=== PATIENT | male | born 1935 | race Caucasian/White ===

== ENCOUNTER 2024-02-28 13:31 | Inpatient (IN) ==
[2024-02-28 14:03] LABS: Basophils # (auto) 0.04 K/uL (0.00-0.20); Basophils % (auto) 0.3 %; Eosinophils # (auto) 0.25 K/uL (0.00-0.50); Eosinophils % (auto) 2.1 %; Hematocrit (blood only) 28.5 % (42.0-52.0); Hemoglobin 8.6 g/dl (14.0-18.0); Immature Granulocytes # (auto) 0.08 K/uL (0.01-0.20); Immature Granulocytes % (auto) 0.7 %; Lymphocytes # (auto) 2.46 K/uL (1.20-3.40); Lymphocytes % (auto) 21.1 %; Mean Corpuscular Hemoglobin 28.8 pg (25.0-34.0); Mean Corpuscular Hgb Conc 30.2 g/dL (32.0-36.0); Mean Corpuscular Volume 95.3 fL (80.0-100.0); Mean Platelet Volume 9.3 fL (9.4-12.4); Neutrophils # (auto) 8.11 K/uL (1.40-6.50); Neutrophils % (auto) 69.8 %; Platelet Count 521 K/uL (130-400); RDW Coefficient of Variation 15.7 % (11.5-14.5); RDW Standard Deviation 54.2 fL (36.4-46.3); Red Blood Count 2.99 M/uL (4.70-6.10); White Blood Count 11.64 K/ul (4.8-10.8)
--- NOTE | 2024-02-28 14:04 | Emergency Department Note ---
History of Present Illness General Chief complaint: Abnormal Labs/Diagnostic Testing Time Seen by Provider: 02/28/24 13:53 Source: patient, family (Son did show up at the bedside and discussed care with him), RN notes reviewed, old records reviewed (I redid review notes that were sent from [facility]) and other (I did talk to Dr. Moreno who called ahead and he is taking care of the patient at [facility] at present) Mode of arrival: EMS Limitations: altered mental status History of Present Illness This patient 88-year-old male who was sent over from [facility] after having confusion and delirium as well as a sodium of 152 yesterday. He fell on January 27 and suffered hip fracture. He went to [place] and had surgery done there. According Dr. Moreno he has not done well postop and was having delirium. He apparently was delirious after his surgery at [place] and has underlying dementia with a comp [facility] and they sent him to [facility] because he could not participate with rehab because he had delirium he has been [facility] since the and has been barely arousable confused since then the family has been upset and her trying to take him to [facility] tomorrow however [facility] refused to excepted due to his ongoing issues including with sodium [address] Moreno sent him to the ER for hydration and evaluation. I did ask about CODE STATUS and he says the patient is a DNR. He did test positive for COVID on February 08. Home Medications Medication Instructions Recorded Confirmed Type memantine 5 mg tablet 5 mg PO BID 01/30/23 02/28/24 History lancets (Microlet Lancet) #300 ea 04/03/23 01/28/24 Rx blood sugar diagnostic (OneTouch #300 ea 04/05/23 01/28/24 Rx Verio test strips) blood-glucose meter (OneTouch #1 ea 04/05/23 01/28/24 Rx Verio Flex Meter) rosuvastatin 20 mg tablet 20 mg PO HS 11/20/23 02/28/24 History levothyroxine 50 mcg tablet 50 mcg PO DAILY 01/28/24 02/28/24 History acetaminophen 325 mg tablet 650 mg PO Q6H PRN PAIN/FEVER>100 02/28/24 02/28/24 History (Tylenol) cholecalciferol (vitamin D3) 50 50 mcg PO DAILY 02/28/24 02/28/24 History mcg (2,000 unit) capsule (Vitamin D3) enoxaparin 40 mg/0.4 mL 40 mg subcut DAILY 02/28/24 02/28/24 History subcutaneous syringe (Lovenox) haloperidol lactate 5 mg/mL 2.5 mg IM Q6H PRN BPSD 02/28/24 02/28/24 History injection solution melatonin 5 mg tablet 5 mg PO HS 02/28/24 02/28/24 History metformin 1,000 mg 24 hr 1,000 mg PO DAILY 02/28/24 02/28/24 History tablet,extended release (gastric reten.) quetiapine 25 mg tablet (Seroquel) 25 mg PO HS 02/28/24 02/28/24 History Allergies Allergy/AdvReac Type Severity Reaction Status Date / Time bee venom protein (honey bee) Allergy Severe SWELLING Verified 02/28/24 16:03 OF NECK, DIFFICULTY BREATHING WITH MULTIPLE STINGS. 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 Medical History Pneumonia hx ~1970's Diabetes mellitus, type 2 NIDDM Surgical History History of cataract surgery right History of colonoscopy History of tonsillectomy History of carpal tunnel surgery of right wrist ulnar nerve transposition History of total right hip arthroplasty Hx of eye surgery right eye (2/2 central retinal vein occlusion) Family History Father Alzheimer disease Mother Lung cancer Grandfather (Maternal) Lung cancer Other No family history of adverse response to anesthesia Social History Smoking Status: Unknown if ever smoked Tobacco Type: Cigarettes and Cigars Second Hand Exposure: No; Do You Dip or Chew Tobacco: No; Hx Alcohol Use: Yes Alcohol type: wine Hx Substance Use: No Preferred Language: [place] Communication Ability: Effective Mill [employer] Required: No Beliefs That Will Affect Care: None Current Living Situation: Spouse Feels Safe at Home: Yes Assistive Devices: Glasses and Hearing Aid - Bilateral Review of Systems A total of 10 systems reviewed and were otherwise negative Physical Exam Vital Signs Vital Signs - 24 hr 02/28/24 13:45 02/28/24 13:48 02/28/24 14:00 Temperature 36.9 C Temperature Source Oral Pulse Rate 89 90 Pulse Rate [Apical] 89 Pulse Rate from SpO2 Sensor 84 92 H Respiratory Rate 22 19 21 Blood Pressure Blood Pressure [Right Arm] 114/65 Blood Pressure Mean Blood Pressure Mean [Right Arm] 81 Pulse Oximetry 100 99 92 Oxygen Delivery Method Room Air Sepsis Recent Fever Within 48 Hours Sepsis New/Unexplained Change in Mental Status Sepsis Action Taken by Nursing 02/28/24 14:01 02/28/24 14:03 02/28/24 14:15 Temperature 36.9 C Temperature Source Axillary Pulse Rate 87 89 Pulse Rate [Apical] Pulse Rate from SpO2 Sensor 86 Respiratory Rate 23 19 Blood Pressure 112/56 L 114/65 Blood Pressure [Right Arm] Blood Pressure Mean 69 81 Blood Pressure Mean [Right Arm] Pulse Oximetry 98 99 Oxygen Delivery Method Room Air Sepsis Recent Fever Within 48 Hours No Sepsis New/Unexplained Change in Mental Status N/A Sepsis Action Taken by Nursing No Action Required 02/28/24 14:17 02/28/24 14:23 02/28/24 14:30 Temperature Temperature Source Pulse Rate 82 89 Pulse Rate [Apical] Pulse Rate from SpO2 Sensor 89 Respiratory Rate 19 Blood Pressure 116/58 L Blood Pressure [Right Arm] Blood Pressure Mean 70 Blood Pressure Mean [Right Arm] Pulse Oximetry 94 Oxygen Delivery Method Sepsis Recent Fever Within 48 Hours Sepsis New/Unexplained Change in Mental Status Sepsis Action Taken by Nursing 02/28/24 14:31 02/28/24 14:34 Temperature Temperature Source Pulse Rate 92 H 102 H Pulse Rate [Apical] Pulse Rate from SpO2 Sensor Respiratory Rate 20 23 Blood Pressure 118/59 L Blood Pressure [Right Arm] Blood Pressure Mean 78 Blood Pressure Mean [Right Arm] Pulse Oximetry 97 95 Oxygen Delivery Method Room Air Sepsis Recent Fever Within 48 Hours Sepsis New/Unexplained Change in Mental Status Sepsis Action Taken by Nursing General: Well developed well nourished older male who is eyes are open and he is difficult to understand but does respond when talked to. In no acute distress, breathing comfortably on room air. Nonslurred but somewhat thickened HEENT: Normal cephalic atraumatic. Pupils are equal round and reactive to light. Extraocular movements are intact. Oropharynx is pink with moist mucous membranes. No swelling of the mouth lips or tongue. Neck: Supple with a midline trachea. No meningeal signs or stiffness, no JVD or bruits. No Stridor. Chest: Clear to auscultation bilaterally. No wheezes or rhonchi. No increased work of breathing. Heart: Regular rate and rhythm without murmurs or gallops. Abdomen: Soft nontender, nondistended without rebound guarding or rigidity. Extremities: No cyanosis clubbing or edema. No calf tenderness or assymetry Spine/Back. Non tender to palpation. No CVA tenderness Skin: Good turgor without rashes. Neurologic exam: Cranial nerves two through 12 are intact. Motor and sensation are intact and symmetrical throughout. Course Administered Medications Potassium Chloride/Dextrose/Sod Cl (D5w And 1/2nss + 20meq Kcl) 20 meq in 1,000 mls @ 100 mls/hr IV .Q10H SONAM Stop: 03/29/24 14:59 Last Admin: 02/28/24 16:29 Dose: 100 mls/hr Documented By: JOHNNA Discontinued Medications Sodium Chloride (Nss) 1,000 mls @ 999 mls/hr IV .Q1H1M ONE Stop: 02/28/24 14:53 Last Infusion: 02/28/24 16:28 Dose: Infused Documented By: Admin: 02/28/24 14:54 Dose: 999 mls/hr Documented By: JOHNNA Ceftriaxone Sodium (Rocephin) 2,000 mg in 50 mls @ 100 mls/hr IV NOW STA; Protocol Stop: 02/28/24 15:17 Last Infusion: 02/28/24 15:58 Dose: Infused Documented By: Admin: 02/28/24 15:21 Dose: 100 mls/hr Documented By: COURTNEY Doxycycline Hyclate 100 mg/ (Dextrose) 100 mls @ 50 mls/hr IV NOW STA Stop: 02/28/24 16:47 Last Infusion: 02/28/24 15:58 Dose: Infused Documented By: Admin: 02/28/24 15:22 Dose: 50 mls/hr Documented By: COURTNEY Critical Care Time Critical Care Time: Yes Total Critical Care Time: 30 Due to the patient's significant lab abnormalities, concern for dehydration and sepsis, need for IV fluids IV antibiotics and further treatment and evaluation as well as discussion with the primary doctor a on hospital stay and family, I have personally spent greater than 30 minutes of critical care time in the direct management of this patient. This includes bedside care, interpretation of diagnostic studies, and testing, discussion with consultants, patient, and family members, and other required patient management activities. This 30 minutes is in excess of all separately billable procedures. Medical Decision Making Differential Diagnosis Electrolyte or metabolic abnormality, dehydration, delirium, intracranial process, medication side effect, infection Medical Records Attestation: I reviewed the patient's medical records. Home Medications Current Medication List: was personally reviewed by me Laboratory Data Attestation: I reviewed the patient's lab results. 02/28/24 13:47 02/28/24 13:47 Lab Results 02/28/24 Range/Units 13:47 WBC 11.64 H (4.8-10.8) K/ul RBC 2.99 L (4.70-6.10) M/uL Hgb 8.6 L (14.0-18.0) g/dl Hct 28.5 L (42.0-52.0) % MCV 95.3 (80.0-100.0) fL MCH 28.8 (25.0-34.0) pg MCHC 30.2 L (32.0-36.0) g/dL RDW Std Deviation 54.2 H (36.4-46.3) fL RDW Coeff of Baldo 15.7 H (11.5-14.5) % Plt Count 521 H (130-400) K/uL MPV 9.3 L (9.4-12.4) fL Immature Gran % (Auto) 0.7 % Neut % (Auto) 69.8 % Lymph % (Auto) 21.1 % [place] % (Auto) 6.0 % Eos % (Auto) 2.1 % Baso % (Auto) 0.3 % Neut # (Auto) 8.11 H (1.40-6.50) K/uL Lymph # (Auto) 2.46 (1.20-3.40) K/uL [place] # (Auto) 0.70 H (0.11-0.59) K/uL Eos # (Auto) 0.25 (0.00-0.50) K/uL Baso # (Auto) 0.04 (0.00-0.20) K/uL Immature Gran # (Auto) 0.08 (0.01-0.20) K/uL PT 11.9 (9.0-12.0) Seconds INR 1.1 (0.9-1.1) APTT 27 (21-31) Seconds PTT Ratio 1.0 Sodium 152 H (136-145) mmol/L Potassium 3.2 L (3.5-5.1) mmol/L Chloride 115 H (98-107) mmol/L Carbon Dioxide 26 (21-32) mmol/L Anion Gap 11 (3-11) BUN 24 H (6-23) mg/dl Creatinine 0.74 (0.6-1.4) mg/dl Est Cr Clr Drug Dosing Not Reportable Est GFR ( Amer) 96.8 ml/min Est GFR (Non-Af Amer) 83.5 ml/min BUN/Creatinine Ratio 32.4 H (10-20) Glucose 155 H (70-99(Fasting)) mg/dl Lactate 2.9 H* (0.4-2.0) mmol/L Calcium 8.3 L (8.6-10.3) mg/dl Total Bilirubin 0.5 (0.2-1.0) mg/dl AST 20 (13-39) U/L ALT 14 (7-52) U/L Alkaline Phosphatase 120 H (34-104) U/L Total Creatine Kinase 70 (30-223) U/L Troponin I High Sens 55.7 H* (0-20) pg/ml Total Protein 6.6 (6.0-8.3) gm/dl Albumin 3.0 L (3.4-5.0) gm/dl Globulin 3.6 (2.5-4.0) gm/dl Albumin/Globulin Ratio 0.8 L (0.9-2) Lipase 12 (11-82) U/L Imaging Data Attestation: I personally reviewed and interpreted this imaging study as follows: My Impression: Chest x-raypatchy infiltrates bilaterally Radiologist's Impression: Chest X-Ray 02/28/24 13:53 XR chest 1V portable HISTORY: 88 years-old Male Chest pain, nonspecific COMPARISON: 01/28/2024 TECHNIQUE: AP view the chest FINDINGS: Cardiac silhouette is enlarged. Pulmonary vascular congestion. No pneumothorax or pleural effusion. Mild patchy bilateral airspace opacities. Healed chronic appearing left-sided rib fractures. IMPRESSION: There are new patchy mild bibasilar airspace opacities suspicious for multifocal pneumonia. ACT 112: Negative or not required by law. The above report was generated using voice recognition software. It may contain grammatical, syntax or spelling errors. Electronically signed by: Vinod Wooten M.D. 02/28/2024 2:[address] 02/28/24 13:[address] DOSE: 953.61 mGy.cm HISTORY: Altered mental status. TECHNIQUE: Multiaxial CT images of the head were performed without the use of intravenous contrast. Automated exposure control was utilized for this study. A dose lowering technique was utilized adhering to the principles of ALARA. Comparison: Head CT 01/28/2024. Findings: Small fluid levels within the sphenoid sinuses. There is a small retention cyst within the left maxillary sinus. The mastoid air cells are clear. The calvarium and skull base are intact. There is no mass, hematoma, midline shift, acute infarct. White matter hypodensity is nonspecific but suggestive of microvascular ischemic change. The ventricles and sulci demonstrate mild age- related involutional changes. Impression: 1. No acute infarct or intracranial hemorrhage. 2. Acute sphenoid sinusitis. ACT 112: Negative or not required by law. Electronically signed by: Bijan Murillo M.D. 02/28/2024 2:23 PM ECG Data Attestation: I personally reviewed and interpreted this ECG as follows: Indication: + toxicologic and + weakness Rate (beats per minute): 92 Rhythm: + normal sinus and + other (Baseline/artifact) ECG Intervals/blocks: + Normal QRS, + Normal QT and + Normal [place] ECG [place]: + Normal ECG ST segments: + Normal ST segments ECG Findings: no PACs or no PVCs Comparison ECG Date: from (01/28/2024) Change: no significant change MDM Narrative This patient comes in as scribed above he was placed on a playground monitor and B11 I saw him shortly after he arrived. He is stable vital signs he actually looks better than he sounded talking to Dr. Moreno he is awake he does try to talk is difficult to understand. He is definitely has delirium and still appears mucous members are somewhat dry. He was hydrated with normal saline bolus EKG was obtained multiple blood testing was obtained I did do a CAT scan of his head as well. He was reassessed frequently. His sodium was high. His white count is mildly elevated his lactic acid was also elevated 2.9. He received fluid resuscitation and 1 lactate was repeated cleared to 1.2. His troponin was 55.7 initially and this also is downward trending at 42.2 when rechecked. His EKG shows no ischemic changes chest x-ray shows what could be a multifocal pneumonia he was given IV antibiotics with IV Rocephin and IV Doxy. I had discussed antibiotic choices with our ED pharmacist. I do think the patient needs to be admitted/observed. I did discuss the case with the on-call [facility] hospitalist Dr. Og, who is at the bedside and will see the patient for admission. Continuous cardiac monitoring: Orders placed in EMR for continuous cardiac monitoring: Upon my evaluation patient noted to be in normal sinus with a rate of 90 Impression & Plan Acute dehydration, Acute metabolic encephalopathy, Acute hypernatremia, Sepsis, Pneumonia, Elevated troponin Discharge Plan Visit Data Chief Complaint: Abnormal Labs/Diagnostic Testing ED Provider: Chele Trammell Discharge Problem: Acute dehydration, Acute metabolic encephalopathy, Acute hypernatremia, Sepsis, Pneumonia, Elevated troponin Patient Disposition: Admitted As Inpatient Discharge Instructions Interventions: ED Discharge Assessment Last Done: 02/28/24 18:34 Discharge Problem: Sepsis Qualifiers: Sepsis type: sepsis due to unspecified organism Sepsis acute organ dysfunction status: unspecified Qualified Code(s): A41.9 - Sepsis, unspecified organism Pneumonia Qualifiers: Pneumonia type: due to unspecified organism Laterality: bilateral Lung location: unspecified part of lung Qualified Code(s): J18.9 - Pneumonia, unspecified organism
[2024-02-28 14:23] LABS: INR 1.1 (0.9-1.1); Partial Thromboplastin Time 27 Seconds (21-31); Prothrombin Time 11.9 Seconds (9.0-12.0)
--- NOTE | 2024-02-28 14:24 | CT Scan Report ---
HEAD CT NONCONTRAST CT DOSE: 953.61 mGy.cm HISTORY: Altered mental status. TECHNIQUE: Multiaxial CT images of the head were performed without the use of intravenous contrast. A utomated exposure control was utilized for this study. A dose lowering technique was utilized adheri ng to the principles of ALARA. Comparison: Head CT 01/28/2024. Findings: Small fluid levels within the sphenoid sinuses. There is a small retention cyst within the left maxillary sinus. The mastoid air cells are clear. The calvarium and skull base are intact. There is no mass, hematoma, midline shift, acute infarct. White matter hypodensity is nonspecific but sugg estive of microvascular ischemic change. The ventricles and sulci demonstrate mild age-related involu tional changes. Impression: 1. No acute infarct or intracranial hemorrhage. 2. Acute sphenoid sinusitis. ACT 112: Negative or not required by law. Electronically signed by: Bijan Murillo M.D. 02/28/2024 2:23 PM
[2024-02-28 14:29] LABS: Alanine Aminotransferase 14 U/L (7-52); Albumin Globulin Ratio 0.8 (0.9-2); Alkaline Phosphatase 120 U/L (34-104); Anion Gap 11 (3-11); Aspartate Aminotransferase 20 U/L (13-39); BUN Creatinine Ratio 32.4 (10-20); Bilirubin,Total 0.5 mg/dl (0.2-1.0); Blood Urea Nitrogen 24 mg/dl (6-23); Calcium 8.3 mg/dl (8.6-10.3); Carbon Dioxide 26 mmol/L (21-32); Chloride 115 mmol/L (98-107); Creatine Kinase 70 U/L (30-223); Est GFR (African American) 96.8 ml/min; Est GFR (Non-African American) 83.5 ml/min; Globulin 3.6 gm/dl (2.5-4.0); Glucose 155 mg/dl (70-99(Fasting)); Lipase 12 U/L (11-82); Potassium 3.2 mmol/L (3.5-5.1); Sodium 152 mmol/L (136-145); Total Protein 6.6 gm/dl (6.0-8.3)
--- NOTE | 2024-02-28 14:35 | XRay Report ---
XR chest 1V portable HISTORY: 88 years-old Male Chest pain, nonspecific COMPARISON: 01/28/2024 TECHNIQUE: AP view the chest FINDINGS: Cardiac silhouette is enlarged. Pulmonary vascular congestion. No pneumothorax or pleural effusion. M ild patchy bilateral airspace opacities. Healed chronic appearing left-sided rib fractures. IMPRESSION: There are new patchy mild bibasilar airspace opacities suspicious for multifocal pneumoni a. ACT 112: Negative or not required by law. The above report was generated using voice recognition software. It may contain grammatical, syntax o r spelling errors. Electronically signed by: Vinod Wooten M.D. 02/28/2024 2:34 PM
[2024-02-28 14:44] LABS: Troponin I High Sensitivity 55.7 pg/ml (0-20)
[2024-02-28] MEDS: SODIUM CHLORIDE 0.9% 1,000 ML IV ONE (14:54)
[2024-02-28] MEDS: cefTRIAXone SODIUM 2,000 MG/50 ML BAG IV STA (15:21)
[2024-02-28] MEDS: DOXYCYCLINE HYCLATE 100 MG in DEXTROSE 5% MINI-B 100 ML IV STA (15:22)
--- NOTE | 2024-02-28 15:59 | History & Physical Report ---
Date of Service February 28, 2024 Assessment & Plan (1) Acute hypernatremia: (2) Acute metabolic encephalopathy: (3) Pneumonia: (4) Elevated troponin: (5) Diabetes mellitus type 2 with complications: (6) Dementia: (7) Hypothyroidism: (8) Lab test positive for detection of COVID-19 virus: Admission and Anticipated Discharge Date Admission Date: This is a 88-year-old male with history of dementia, diabetes mellitus type 2, recent COVID-19 and pneumonia, recent periprosthetic fracture right hip surgical treated at [place], among other medical problems who was sent from [facility] rehab for hypernatremia and ongoing confusion CT head- 1. No acute infarct or intracranial hemorrhage. 2. Acute sphenoid sinusitis. CXR-There are new patchy mild bibasilar airspace opacities suspicious for multifocal pneumonia. (1) Acute hypernatremia: sodium 152. likely from poor oral intake given his dementia and confusion. He looks dry on examination. He was given 1 L of NSS in the ED. he was started on D5 half-normal saline with KCl, however repeat BMP at 7 PM still shows sodium at 152. will switch IV fluids to D5 infusion at 100 cc/h and recheck BMP in the morning. Will continue potassium supplementation for hypokalemia (2) Acute metabolic encephalopathy: CT head with no acute normality except for acute sphenoid sinusitis. likely related to hyponatremia along with his dementia and delirium related to his hospitalizations. continue IVF as above. Continue delirium precautions. (3) Multifocal Pneumonia/ acute sphenoid sinusitis: patient was diagnosed with COVID on 02/08 at [facility] and also received Ceftriaxone for 7 days for pneumonia. chest x-ray here shows multifocal pneumonia, unclear whether this is from his recent pneumonia versus a new one. He was started on ceftriaxone send doxycycline in the ED which we will continue for now - this will also cover the sinusitis. will consult MARKETING TEAM LEAD eval to see if he might be aspirating. Lactic acidosis has resolved. (4) Elevated troponin: Likely Demand ischemia related to above. Denies chest pain. EKG with no acute changes. Will trend troponin for completeness. (5) Diabetes mellitus type 2: On metformin, which will hold and continue Lantus Along with Humalog, as he is on D5W. carb controlled diet. (6) Dementia with postoperative delirium- continue Seroquel, melatonin, mementine, delirium precautions. Haldol prn if agitation. (7) Hypothyroidism: continue Synthroid (8) Lab test positive for detection of COVID-19 virus: recently tested positive for COVID-19 on 02/08 at [facility] and is still positive. No need for isolation. (9) Postop blood loss anemia- hemoglobin currently stable at 8.6. Will monitor. Currently does not require transfusion. (10) Hypokalemia- Repleted. Recheck in AM. (11) GOC discussion- discussed with son at bedside who is also POA along with the sisters. He is quite realistic. States he is DNR/DNI. He would like to continue IVF and antibiotics but he does not think he would want PEG tube or BIPAP or ICU transfer for pressors if it comes to that. DVT prophylaxis- continue subcu Lovenox which patient has been getting at the rehab. DNR/DNI per discussion with son at bedside who is also the POA. Disposition- MedSurg on telemetry Updated son at bedside Time spent- approximately 79 minutes. History of Present Illness Chief Complaint: hypernatremia, confusion Primary Care Provider: Carlin Darden MD This is a 88-year-old male with history of dementia, diabetes mellitus type 2, recent COVID-19 and pneumonia, recent periprosthetic fracture right hip surgical treated at [place], among other medical problems who was sent from [facility] rehab for hypernatremia and ongoing confusion. Patient is confused and Demented and not able to participate in history much. History obtained from chart review and speaking to son at bedside. patient had unwitnessed fall on 01/28/2024 sustaining right hip periprosthetic fracture and was transferred to [facility] where he underwent revision of right hip total arthroplasty and ORIF a femur with revision of femoral stem by Dr. Titus Jimenez on 01/29/2024 at [facility]. X-rays revealed severe right knee DJD as well. Postoperatively, he had significant agitation and delirium anxiolytic medicine was consulted who recommended melatonin at bedtime, Seroquel 25 Mg every 6 PM and avoidance of anticholinergic medications. He was transferred to [facility] on 02/04/2024. details of his stay at [facility] are unclear at this time, however he was diagnosed with COVID-19 on 02/09/2024 after displaying symptoms of increased lethargy and worsening confusion but he did not require any specific antiviral treatment. He was discharged to [facility] for ongoing rehab on 02/16. labs were done which showed significant hyponatremia and he was transferred to the hospital for further management, especially with his ongoing confusion. During my evaluation, son was at bedside. He was afebrile and hemodynamically stable, intermittently coughing. He looked dry. Allergies Allergy/AdvReac Type Severity Reaction Status Date / Time bee venom protein (honey bee) Allergy Severe SWELLING Verified 02/28/24 16:03 OF NECK, DIFFICULTY BREATHING WITH MULTIPLE STINGS. ciprofloxacin Allergy Intermediate rash Verified 02/28/24 16:03 Home Medications Medication Instructions Recorded Confirmed Type memantine 5 mg tablet 5 mg PO BID 01/30/23 02/28/24 History lancets (Microlet Lancet) #300 ea 04/03/23 01/28/24 Rx blood sugar diagnostic (OneTouch #300 ea 04/05/23 01/28/24 Rx Verio test strips) blood-glucose meter (OneTouch #1 ea 04/05/23 01/28/24 Rx Verio Flex Meter) rosuvastatin 20 mg tablet 20 mg PO HS 11/20/23 02/28/24 History levothyroxine 50 mcg tablet 50 mcg PO DAILY 01/28/24 02/28/24 History acetaminophen 325 mg tablet 650 mg PO Q6H PRN PAIN/FEVER>100 02/28/24 02/28/24 History (Tylenol) cholecalciferol (vitamin D3) 50 50 mcg PO DAILY 02/28/24 02/28/24 History mcg (2,000 unit) capsule (Vitamin D3) enoxaparin 40 mg/0.4 mL 40 mg subcut DAILY 02/28/24 02/28/24 History subcutaneous syringe (Lovenox) haloperidol lactate 5 mg/mL 2.5 mg IM Q6H PRN BPSD 02/28/24 02/28/24 History injection solution melatonin 5 mg tablet 5 mg PO HS 02/28/24 02/28/24 History metformin 1,000 mg 24 hr 1,000 mg PO DAILY 02/28/24 02/28/24 History tablet,extended release (gastric reten.) quetiapine 25 mg tablet (Seroquel) 25 mg PO HS 02/28/24 02/28/24 History Past Med/Surg History Problem List Lab test positive for detection of COVID-19 virus Elevated troponin (Acute) Pneumonia (Acute) Sepsis (Acute) Acute hypernatremia (Acute) Acute metabolic encephalopathy (Acute) Acute dehydration (Acute) Murmur 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 Medical History Pneumonia hx ~1970's Diabetes mellitus, type 2 NIDDM Surgical History History of cataract surgery right History of colonoscopy History of tonsillectomy History of carpal tunnel surgery of right wrist ulnar nerve transposition History of total right hip arthroplasty Hx of eye surgery right eye (2/2 central retinal vein occlusion) Family History Father Alzheimer disease Mother Lung cancer Grandfather (Maternal) Lung cancer Other No family history of adverse response to anesthesia Social History Smoking Status: Unknown if ever smoked Tobacco Type: Cigarettes and Cigars Second Hand Exposure: No; Do You Dip or Chew Tobacco: No; Hx Alcohol Use: Yes Alcohol type: wine Hx Substance Use: No Preferred Language: Montserratian Communication Ability: Effective Professor Of Marketing Required: No Beliefs That Will Affect Care: None Current Living Situation: Spouse Feels Safe at Home: Yes Assistive Devices: Glasses and Hearing Aid - Bilateral Review of Systems Review of Systems: Unobtainable due to cognitive status Physical Exam Physical Exam: General: Chronically ill looking elderly male, lying comfortably in bed, not in distress, on room air HEENT: [place], dry oral mucosa Chest: Clear breath sounds bilaterally, no wheezes or crackles CVS: Regular rate and rhythm, normal heart sounds, no murmur Abdomen: Soft, non tender, not distended, normal bowel sounds Neuro: Awake, alert, oriented to self, speaking few sentences, follows some commands Extremities: No edema Psych: Calm, cooperative, confused Results & Data Results & Data Vital Signs (Past 12 Hours) Vital Signs Temp Pulse Pulse Resp BP BP Pulse Ox 02/28/24 15:57 80 17 102/60 100 02/28/24 15:24 113 H 22 121/62 98 02/28/24 14:34 102 H 23 95 02/28/24 14:31 92 H 20 118/59 L 97 02/28/24 14:30 89 19 94 02/28/24 14:23 82 02/28/24 14:17 116/58 L 02/28/24 14:15 36.9 C 89 19 114/65 99 02/28/24 14:03 87 23 98 02/28/24 14:01 112/56 L 02/28/24 14:00 90 21 92 02/28/24 13:48 36.9 C 89 19 114/65 99 02/28/24 13:45 89 22 100 O2 Del Method 02/28/24 15:57 Room Air 02/28/24 15:24 02/28/24 14:34 Room Air 02/28/24 14:31 02/28/24 14:30 02/28/24 14:23 02/28/24 14:17 02/28/24 14:15 Room Air 02/28/24 14:03 02/28/24 14:01 02/28/24 14:00 02/28/24 13:48 Room Air 02/28/24 13:45 Laboratory Results Short CBC 02/28/24 Range/Units 13:47 WBC 11.64 H (4.8-10.8) K/ul Hgb 8.6 L (14.0-18.0) g/dl Hct 28.5 L (42.0-52.0) % Plt Count 521 H (130-400) K/uL BMP 02/28/24 13:47 Sodium 152 H Potassium 3.2 L Chloride 115 H Carbon Dioxide 26 BUN 24 H Creatinine 0.74 Glucose 155 H Calcium 8.3 L Cardiac Enzymes 02/28/24 Range/Units 13:47 Total Creatine Kinase 70 (30-223) U/L Liver Function 02/28/24 Range/Units 13:47 Total Bilirubin 0.5 (0.2-1.0) mg/dl AST 20 (13-39) U/L ALT 14 (7-52) U/L Alkaline Phosphatase 120 H (34-104) U/L Albumin 3.0 L (3.4-5.0) gm/dl Diagnostic Findings Chest X-Ray 02/28/24 13:53 XR chest 1V portable HISTORY: 88 years-old Male Chest pain, nonspecific COMPARISON: 01/28/2024 TECHNIQUE: AP view the chest FINDINGS: Cardiac silhouette is enlarged. Pulmonary vascular congestion. No pneumothorax or pleural effusion. Mild patchy bilateral airspace opacities. Healed chronic appearing left-sided rib fractures. IMPRESSION: There are new patchy mild bibasilar airspace opacities suspicious for multifocal pneumonia. ACT 112: Negative or not required by law. The above report was generated using voice recognition software. It may contain grammatical, syntax or spelling errors. Electronically signed by: Vinod Wooten M.D. 02/28/2024 2:[address] 02/28/24 13:[address] DOSE: 953.61 mGy.cm HISTORY: Altered mental status. TECHNIQUE: Multiaxial CT images of the head were performed without the use of intravenous contrast. Automated exposure control was utilized for this study. A dose lowering technique was utilized adhering to the principles of ALARA. Comparison: Head CT 01/28/2024. Findings: Small fluid levels within the sphenoid sinuses. There is a small retention cyst within the left maxillary sinus. The mastoid air cells are clear. The calvarium and skull base are intact. There is no mass, hematoma, midline shift, acute infarct. White matter hypodensity is nonspecific but suggestive of microvascular ischemic change. The ventricles and sulci demonstrate mild age- related involutional changes. Impression: 1. No acute infarct or intracranial hemorrhage. 2. Acute sphenoid sinusitis. ACT 112: Negative or not required by law. Electronically signed by: Bijan Murillo M.D. 02/28/2024 2:23 PM (3) Pneumonia Laterality: bilateral Lung location: unspecified part of lung Pneumonia type: due to unspecified organism Qualified Code(s): J18.9 - Pneumonia, unspecified organism (7) Hypothyroidism Hypothyroidism type: acquired Qualified Code(s): E03.9 - Hypothyroidism, unspecified
[2024-02-28] MEDS: D5W AND 1/2NSS + 20MEQ KCL 20 MEQ/1,000 ML BAG IV SCH (16:29)
[2024-02-28] MEDS ORDERED: HALOPERIDOL LACTATE 5 MG/ML 1 ML VIAL IV PRN (16:58)
[2024-02-28] MEDS ORDERED: ALBUT/IPRATROP 3MG/0.5MG NEB 3 ML VIAL NEB PRN (18:34)
[2024-02-28] MEDS ORDERED: GLUCAGON FOR INJ 1 MG VIAL SQ PRN (18:34)
[2024-02-28] MEDS ORDERED: GLUCOSE 10 TAB/TUBE PO PRN (18:34)
[2024-02-28] MEDS ORDERED: GLUCOSE 40% GEL 15 GM TUBE PO PRN (18:34)
[2024-02-28] MEDS ORDERED: ONDANSETRON INJ 2 MG/ML 2 ML VIAL IV PRN (18:34)
--- NOTE | 2024-02-28 19:25 | Electrocardiogram Report ---
Test Reason : Blood Pressure : / mmHG Vent. Rate : 092 BPM Atrial Rate : 092 BPM P-R Int : 140 ms QRS Dur : 094 ms QT Int : 356 ms P-R-T Axes : 078 073 -01 degrees QTc Int : 440 ms Poor data quality, interpretation may be adversely affected Sinus rhythm with Premature atrial complexes Nonspecific T wave abnormality Abnormal ECG When compared with ECG of 28-JAN-2024 12:20, Premature atrial complexes are now Present QRS duration has decreased Nonspecific T wave abnormality now evident in Inferior leads Confirmed by Jesse Balderas ([id number]) on 02/28/2024 7:25:03 PM Referred By: REFERRED SELF Confirmed By:Jesse Balderas
[2024-02-28 19:47] LABS: BUN Creatinine Ratio 30.8 (10-20); Calcium 8.1 mg/dl (8.6-10.3); Creatinine Clr Calc Pharmacy 62.2 ml/min; Est GFR (African American) 102.1 ml/min; Est GFR (Non-African American) 88.1 ml/min; Potassium 3.3 mmol/L (3.5-5.1)
[2024-02-28] MEDS: INSULIN ASPART PER UNIT CHARGE SC SCH (21:00)
[2024-02-28] MEDS: DOXYCYCLINE HYCLATE 100 MG in DEXTROSE 5% MINI-B 100 ML IV SCH (21:56)
[2024-02-28] MEDS: ROSUVASTATIN CALCIUM 20 MG TAB PO SCH (22:00)
[2024-02-28] MEDS: MEMANTINE HCL 5 MG TAB PO SCH (22:00)
[2024-02-28] MEDS: QUEtiapine FUMARATE 25 MG TABLET PO SCH (22:00)
[2024-02-28] MEDS: MELATONIN 3 MG TAB PO SCH (22:01)
[2024-02-28] MEDS: LANTUS PER UNIT CHARGE SQ SCH (22:23)
[2024-02-28] MEDS: POTASSIUM CHLORIDE 20 MEQ/15 ML UDC PO STA (22:31)
[2024-02-28] MEDS: DEXTROSE 5% 1,000 ML IV SCH (22:39)
[2024-02-29] MEDS: LEVOTHYROXINE SODIUM 50 MCG TABLET PO SCH (06:26)
[2024-02-29 08:18] LABS: BUN Creatinine Ratio 26.3 (10-20); Calcium 7.5 mg/dl (8.6-10.3); Creatinine Clr Calc Pharmacy 70.9 ml/min; Est GFR (African American) 107.8 ml/min; Magnesium 1.5 mg/dl (1.7-2.4); Phosphorus 2.1 mg/dl (2.5-4.9); Potassium 3.1 mmol/L (3.5-5.1)
[2024-02-29 08:25] LABS: Troponin I High Sensitivity 37.4 pg/ml (0-20)
[2024-02-29 09:09] LABS: Hematocrit (blood only) 21.9 % (42.0-52.0); Hemoglobin 6.6 g/dl (14.0-18.0); Mean Corpuscular Hemoglobin 28.8 pg (25.0-34.0); Mean Corpuscular Hgb Conc 30.1 g/dL (32.0-36.0); Mean Corpuscular Volume 95.6 fL (80.0-100.0); Mean Platelet Volume 9.1 fL (9.4-12.4); Platelet Count 426 K/uL (130-400); RDW Coefficient of Variation 15.4 % (11.5-14.5); RDW Standard Deviation 52.9 fL (36.4-46.3); Red Blood Count 2.29 M/uL (4.70-6.10); White Blood Count 10.21 K/ul (4.8-10.8)
[2024-02-29] MEDS: ENOXAPARIN INJ 40 MG/0.4 ML SYR SQ SCH (09:45)
[2024-02-29] MEDS ORDERED: POTASSIUM PHOS 3 MMOL/1 ML INFUSION IV STA (09:55)
[2024-02-29 10:06] LABS: Hematocrit (blood only) 23.1 % (42.0-52.0)
[2024-02-29] MEDS: MAGNESIUM SULFATE / D5W 1 GM/100 ML BAG IV SCH (11:10)
[2024-02-29] MEDS: D5W AND 1/2NSS + 20MEQ KCL 20 MEQ/1,000 ML BAG IV SCH (11:10)
[2024-02-29 13:00] LABS: Ferritin 449.5 ng/ml (8-388)
[2024-02-29 13:02] LABS: Folate (Folic Acid),Ser orPlas 5.67 ng/ml (>5.38)
--- NOTE | 2024-02-29 14:52 | Hospitalist Progress Note ---
Date of Service February 29, 2024 Assessment & Plan (1) Acute metabolic encephalopathy: Plan: This is a 88-year-old male with history of dementia, diabetes mellitus type 2, recent COVID-19 and pneumonia, recent periprosthetic fracture right hip surgical treated at [place], among other medical problems who was sent from [facility] rehab for hypernatremia and ongoing confusion Acute metabolic encephalopathy: CT head with no acute normality except for acute sphenoid sinusitis. likely related to hyponatremia along with his dementia and delirium related to his hospitalizations. Continue IVF as above. Continue delirium precautions. Management as below Remains medically stable Electrolyte abnormalities Has hyponatremia, hypokalemia, hypomagnesemia and hypophosphatemia Likely secondary to poor oral intake and dehydration Complicated by infection Will supplement intravenously and monitor electrolytes while in the hospital Anemia Postop blood loss anemia-status post ORIF right hip on 01/29/2024 at [facility] hemoglobin currently stable at 8.6. Hemoglobin dropped to 7.0 as of today Will get iron studies and B12 and folate level No evidence of acute blood loss Dropping of hemoglobin is secondary to due to ongoing infection Will monitor hemoglobin and transfuse if it drops below 7 (2) Acute hypernatremia: Plan: Acute hypernatremia: sodium 152. Likely from poor oral intake given his dementia and confusion. He looks dry on examination. He was given 1 L of NSS in the ED. Which was changed to D5 and half-normal saline and likely D5 half-normal saline with potassium supplement Latest potassium is 148 and will monitor (3) Pneumonia: Plan: Multifocal Pneumonia/ acute sphenoid sinusitis: patient was diagnosed with COVID on 02/08 at [facility] and also received Ceftriaxone for 7 days for pneumonia. chest x-ray here shows multifocal pneumonia, unclear whether this is from his recent pneumonia versus a new one. He was started on ceftriaxone send doxycycline in the ED which we will continue for now - this will also cover the sinusitis. Will consult SENIOR SALES CONSULTANT feli to see if he might be aspirating. Lactic acidosis has resolved. No more fever and or chills and remains hemodynamically stable Will continue current antibiotic (4) Elevated troponin: Plan: Secondary to demand ischemia (5) Diabetes mellitus type 2 with complications: (6) Dementia: (7) Hypothyroidism: (8) Lab test positive for detection of COVID-19 virus: Plan :Other significant medical conditions are documented as below Elevated troponin: Likely Demand ischemia related to above. Denies chest pain. EKG with no acute changes. Will trend troponin for completeness. Diabetes mellitus type 2: On metformin, which will hold and continue Lantus Along with Humalog, as he is on D5W. carb controlled diet. Dementia with postoperative delirium- Continue Seroquel, melatonin, mementine, delirium precautions. Haldol prn if agitation. Hypothyroidism: continue Synthroid Lab test positive for detection of COVID-19 virus: recently tested positive for COVID-19 on 02/08 at [facility] and is still positive. No need for isolation. GOC discussion- discussed with son at bedside who is also POA along with the sisters. He is quite realistic. States he is DNR/DNI. He would like to continue IVF and antibiotics but he does not think he would want PEG tube or BIPAP or ICU transfer for pressors if it comes to that. DVT prophylaxis- continue subcu Lovenox which patient has been getting at the rehab. DNR/DNI per discussion with son at bedside who is also the POA. Disposition- MedSurg on telemetry Updated son at bedside Overall prognosis is poor Admission and Anticipated Discharge Date Admission Date: February 28, 2024 Subjective 02/29/2024 The patient was seen and examined in telemetry unit He remains semiresponsive responsive Opening his eyes and saying yes or no, squeezing hands on commands Says that he is minimally better since admission Review of Systems Review of Systems: Unobtainable due to cognitive status Physical Exam Physical Exam: Lying in bed with mild to moderate distress Constitutional: + ill appearing and + thin Eyes: PERRL, conjunctivae normal, anicteric sclerae Closed ENMT: external ear and nose normal, oropharynx normal Neck: trachea midline, no thyromegaly No neck stiffness Respiratory: + respiratory distress (Minimal respirat ory distress) Auscultation: + diminished lung sounds and + crackles (Minimal crackles bilat erally at the bases) Cardiovascular: Rate/Rhythm: regular rate and regular rhythm Heart Sounds: normal S1 and normal S2; no murmur Extremities: no edema Gastrointestinal (Abdomen): Inspection/Auscultation: normal bowel sounds; abdomen not distended Percussion/Palpation: abdomen soft; abdomen nontender Musculoskeletal: No acute arthritis involving any of the joint Neurologic: Alert and awake. Minimally communicative. Extremely weak and lethargic Results & Data Results & Data Vital Signs (Past 12 Hours) Vital Signs Temp Pulse Resp BP Pulse Ox O2 Del Method 02/29/24 12:32 Room Air 02/29/24 11:25 36.6 C 73 20 102/55 L 94 Room Air 02/29/24 07:21 36.7 C 70 18 96/58 L 94 Room Air 02/29/24 02:50 36.5 C 75 16 104/66 93 Room Air Laboratory Results Short CBC 02/29/24 02/29/24 Range/Units 07:32 09:56 WBC 10.21 (4.8-10.8) K/ul Hgb 6.6 L* 7.0 L (14.0-18.0) g/dl Hct 21.9 L 23.1 L (42.0-52.0) % Plt Count 426 H (130-400) K/uL BMP 02/28/24 02/29/24 19:02 07:32 Sodium 152 H 148 H Potassium 3.3 L 3.1 L Chloride 118 H 116 H Carbon Dioxide 27 26 BUN 20 15 Creatinine 0.65 0.57 L Glucose 143 H 119 H Calcium 8.1 L 7.5 L Medications Administered Current Inpatient Medications Acetaminophen (Acetaminophen 325 Mg Tab) 650 mg PO Q4H PRN PRN Reason: fever pain Stop: 03/29/24 18:33 Albuterol (Albut/Ipratrop 3mg/0.5mg Neb 3 Ml Vial) 3 ml NEB Q6R PRN; Protocol PRN Reason: Shortness Of Breath Or Wheezing Stop: 03/29/24 18:33 Dextrose (Dextrose 50% 50 Ml Syringe) 25 - 50 ml IV UD PRN; Protocol PRN Reason: Hypoglycemia Protocol Stop: 03/29/24 18:33 Enoxaparin Sodium (Enoxaparin Inj 40 Mg/0.4 Ml Syr) 40 mg SQ DAILY SONAM Stop: 03/30/24 08:59 Last Admin: 02/29/24 09:45 Dose: 40 mg Glucagon (Glucagon For Inj 1 Mg Vial) 1 mg SQ UD PRN; Protocol PRN Reason: Hypoglycemia Protocol Stop: 03/29/24 18:33 Glucose (Glucose 40% Gel 15 Gm Tube) 15 - 30 gm PO UD PRN; Protocol PRN Reason: Hypoglycemia Protocol Stop: 03/29/24 18:33 Glucose (Glucose 10 Tab/Tube) 4 - 8 tab PO UD PRN; Protocol PRN Reason: Hypoglycemia Treatment Stop: 03/29/24 18:33 Haloperidol Lactate (Haloperidol Lactate 5 Mg/Ml 1 Ml Vial) 2.5 mg IV Q6H PRN PRN Reason: BPSD Stop: 03/29/24 16:57 Ceftriaxone Sodium (Rocephin) 2,000 mg in 50 mls @ 100 mls/hr IV Q24H SONAM Stop: 03/07/24 14:59 Doxycycline Hyclate 100 mg/ (Dextrose) 100 mls @ 50 mls/hr IV Q12H SONAM Stop: 03/06/24 18:59 Last Admin: 02/29/24 09:47 Dose: 100 mls/hr Potassium Chloride/Dextrose/Sod Cl (D5w And 1/2nss + 20meq Kcl) 20 meq in 1,000 mls @ 80 mls/hr IV .[id number] SONAM Stop: 03/01/24 10:59 Last Admin: 02/29/24 11:10 Dose: 80 mls/hr Insulin Aspart (Insulin Aspart Per Unit Charge) 0 units SC ACHS SONAM Stop: 03/29/24 18:33 Last Admin: 02/29/24 09:10 Dose: Not Given Insulin Glargine (Lantus Per Unit Charge) 5 units SQ BID SONAM Stop: 03/29/24 20:59 Last Admin: 02/29/24 09:13 Dose: 5 units Levothyroxine Sodium (Levothyroxine Sodium 50 Mcg Tablet) 50 mcg PO DAILYBB SONAM Stop: 03/30/24 06:29 Last Admin: 02/29/24 06:39 Dose: Not Given Melatonin (Melatonin 3 Mg Tab) 6 mg PO HS SONAM Stop: 03/29/24 20:59 Last Admin: 02/28/24 22:01 Dose: 6 mg Memantine (Memantine Hcl 5 Mg Tab) 5 mg PO BID SONAM Stop: 03/29/24 20:59 Last Admin: 02/29/24 09:45 Dose: 5 mg Miscellaneous (Carbohydrates For Hypoglycemia ) 15 - 30 gm PO UD PRN PRN Reason: Hypoglycemia Protocol Stop: 03/29/24 18:33 Ondansetron HCl (Ondansetron Inj 2 Mg/Ml 2 Ml Vial) 4 mg IV Q6H PRN PRN Reason: Nausea And Vomiting Stop: 03/29/24 18:33 Quetiapine Fumarate (Quetiapine Fumarate 25 Mg Tablet) 25 mg PO [facility] Stop: 03/29/24 20:59 Last Admin: 02/28/24 22:00 Dose: 25 mg Rosuvastatin Calcium (Rosuvastatin Calcium 20 Mg Tab) 20 mg PO [facility] Stop: 03/29/24 20:59 Last Admin: 02/28/24 22:00 Dose: 20 mg (3) Pneumonia Laterality: bilateral Lung location: unspecified part of lung Pneumonia type: due to unspecified organism Qualified Code(s): J18.9 - Pneumonia, unspecified organism (7) Hypothyroidism Hypothyroidism type: acquired Qualified Code(s): E03.9 - Hypothyroidism, unspecified
[2024-02-29] MEDS: POTASSIUM PHOSPHATE 24 MMOL in SODIUM CHLORIDE 0.9% 500 ML IV ONE (14:53)
[2024-02-29] MEDS: cefTRIAXone SODIUM 2,000 MG/50 ML BAG IV SCH (14:55)
[2024-02-29] MEDS: IRON SUCROSE 300 MG in SODIUM CHLORIDE 0.9% 250 ML IV ONE (15:44)
[2024-03-01 07:16] LABS: Basophils # (auto) 0.03 K/uL (0.00-0.20); Basophils % (auto) 0.3 %; Eosinophils # (auto) 0.32 K/uL (0.00-0.50); Eosinophils % (auto) 3.6 %; Hematocrit (blood only) 24.6 % (42.0-52.0); Hemoglobin 7.5 g/dl (14.0-18.0); Immature Granulocytes # (auto) 0.07 K/uL (0.01-0.20); Immature Granulocytes % (auto) 0.8 %; Lymphocytes # (auto) 2.06 K/uL (1.20-3.40); Lymphocytes % (auto) 22.9 %; Mean Corpuscular Hgb Conc 30.5 g/dL (32.0-36.0); Mean Platelet Volume 9.1 fL (9.4-12.4); Monocytes # (auto) 0.65 K/uL (0.11-0.59); Monocytes % (auto) 7.2 %; Neutrophils # (auto) 5.85 K/uL (1.40-6.50); Neutrophils % (auto) 65.2 %; Platelet Count 421 K/uL (130-400); RDW Standard Deviation 52.1 fL (36.4-46.3); Red Blood Count 2.59 M/uL (4.70-6.10); White Blood Count 8.98 K/ul (4.8-10.8)
[2024-03-01] MEDS: POTASSIUM CHLORIDE 20 MEQ/15 ML UDC PO SCH (07:22)
[2024-03-01] MEDS: POTASSIUM CHLORIDE / WTR 10 MEQ/100 ML PLCT IV ONE ×2 (07:22→07:23)
[2024-03-01 07:29] LABS: BUN Creatinine Ratio 14.9 (10-20); Calcium 7.9 mg/dl (8.6-10.3); Est GFR (African American) 116.7 ml/min; Est GFR (Non-African American) 100.7 ml/min; Magnesium 1.7 mg/dl (1.7-2.4); Phosphorus 2.6 mg/dl (2.5-4.9); Potassium 3.5 mmol/L (3.5-5.1)
[2024-03-01 07:53] LABS: RBC Morphology Unremarkable
[2024-03-01] MEDS: FERROUS SULFATE 325 MG TAB PO SCH (10:14)
--- NOTE | 2024-03-01 13:06 | Hospitalist Progress Note ---
Date of Service March 01, 2024 Assessment & Plan (1) Acute metabolic encephalopathy: Plan: This is a 88-year-old male with history of dementia, diabetes mellitus type 2, recent COVID-19 and pneumonia, recent periprosthetic fracture right hip surgical treated at [facility], among other medical problems who was sent from [facility] for hypernatremia and ongoing confusion Acute metabolic encephalopathy: CT head with no acute normality except for acute sphenoid sinusitis. likely related to hyponatremia along with his dementia and delirium related to his hospitalizations. Continue IVF as above. Continue delirium precautions. Management as below Remains medically stable Clinically much better today and has been more responsive Trying to eat and was advised to drink more fluid Does not have any acute distress but remains confused Electrolyte abnormalities Has hyponatremia, hypokalemia, hypomagnesemia and hypophosphatemia Likely secondary to poor oral intake and dehydration Complicated by infection Will supplement intravenously and monitor electrolytes while in the hospital Electrolytes are normalized and will monitor Anemia-iron deficiency anemia Postop blood loss anemia-status post [place]IF right hip on [place]/29/20[place] [facility] hemoglobin currently stable at 8.6. Hemoglobin dropped to 7.0 as of today Will get iron studies and B12 and folate level No evidence of acute blood loss Dropping of hemoglobin is secondary to due to ongoing infection Will monitor hemoglobin and transfuse if it drops below 7 Has iron deficiency-received 1 dose of intravenous iron yesterday Hemoglobin is 7.4 today Will start oral iron and monitor blood counts (2) Acute hypernatremia: Plan: Acute hypernatremia: sodium 152. Likely from poor oral intake given his dementia and confusion. He looks dry on examination. He was given 1 L of NSS in the ED. Which was changed to D5 and half-normal saline and likely D5 half-normal saline with potassium supplement Latest potassium is 148 and will monitor Sodium level has been normalized (3) Pneumonia: Plan: Multifocal Pneumonia/ acute sphenoid sinusitis: patient was diagnosed with COVID on 02/08 at [facility] and also received Ceftriaxone for 7 days for pneumonia. chest x-ray here shows multifocal pneumonia, unclear whether this is from his recent pneumonia versus a new one. He was started on ceftriaxone send doxycycline in the ED which we will continue for now - this will also cover the sinusitis. Will consult [employer] feli to see if he might be aspirating. Lactic acidosis has resolved. No more fever and or chills and remains hemodynamically stable Will continue current antibiotic (4) Elevated troponin: Plan: Secondary to demand ischemia (5) Diabetes mellitus type 2 with complications: (6) Dementia: (7) Hypothyroidism: (8) Lab test positive for detection of COVID-19 virus: Plan :Other significant medical conditions are documented as below Elevated troponin: Likely Demand ischemia related to above. Denies chest pain. EKG with no acute changes. Will trend troponin for completeness. Diabetes mellitus type 2: On metformin, which will hold and continue Lantus Along with Humalog, as he is on D5W. carb controlled diet. Dementia with postoperative delirium- Continue Seroquel, melatonin, mementine, delirium precautions. Haldol prn if agitation. Hypothyroidism: continue Synthroid Lab test positive for detection of COVID-19 virus: recently tested positive for COVID-19 on 02/08 at [facility] and is still positive. No need for isolation. GOC discussion- discussed with son at bedside who is also POA along with the sisters. He is quite realistic. States he is DNR/DNI. He would like to continue IVF and antibiotics but he does not think he would want PEG tube or BIPAP or ICU transfer for pressors if it comes to that. DVT prophylaxis- continue subcu Lovenox which patient has been getting at the rehab. DNR/DNI per discussion with son at bedside who is also the POA. Disposition- MedSurg on telemetry Updated son at bedside Overall prognosis is poor Admission and Anticipated Discharge Date Admission Date: February 28, 2024 Subjective 02/29/2024 The patient was seen and examined in telemetry unit He remains semiresponsive responsive Opening his eyes and saying yes or no, squeezing hands on commands Says that he is minimally better since admission 03/01/2024 The patient was seen and examined in telemetry unit He has been more responsive today and has been communicating Pleasantly confused Does not have any acute distress Review of Systems Review of Systems: All systems reviewed and are unremarkable except as noted below Physical Exam Physical Exam: Lying in bed with mild to moderate distress Constitutional: + ill appearing and + thin Eyes: PERRL, conjunctivae normal, anicteric sclerae ENMT: external ear and nose normal, oropharynx normal Neck: trachea midline, no thyromegaly Respiratory: + respiratory distress (Minimal respirat ory distress) Auscultation: + diminished lung sounds and + crackles (Minimal crackles bilaterally at the bases) Cardiovascular: Rate/Rhythm: regular rate and regular rhythm Heart Sounds: normal S1 and normal S2; no murmur Extremities: no edema Gastrointestinal (Abdomen): Inspection/Auscultation: normal bowel sounds; abdomen not distended Percussion/Palpation: abdomen soft; abdomen nontender Neurologic: Alert and awake. More communicative today. Remains weak and lethargic Lymphatic: no cervical or axillary lymphadenopathy Results & Data Results & Data Vital Signs (Past 12 Hours) Vital Signs Temp Pulse Pulse Resp BP BP Pulse Ox 03/01/24 11:21 36.4 C L 75 22 141/71 H 03/01/24 10:41 69 03/01/24 08:00 03/01/24 07:26 96 03/01/24 07:24 36.7 C 89 24 132/67 03/01/24 03:15 36.4 C L 89 18 148/72 H 92 03/01/24 02:20 75 O2 Del Method 03/01/24 11:21 Room Air 03/01/24 10:41 03/01/24 08:00 Room Air 03/01/24 07:26 Room Air 03/01/24 07:24 Room Air 03/01/24 03:15 Room Air 03/01/24 02:20 Laboratory Results Short CBC 03/01/24 Range/Units 06:39 WBC 8.98 (4.8-10.8) K/ul Hgb 7.5 L (14.0-18.0) g/dl Hct 24.6 L (42.0-52.0) % Plt Count 421 H (130-400) K/uL BMP 03/01/24 06:39 Sodium 144 Potassium 3.5 Chloride 113 H Carbon Dioxide 26 BUN 7 Creatinine 0.47 L Glucose 99 Calcium 7.9 L Medications Administered Current Inpatient Medications Acetaminophen (Acetaminophen 325 Mg Tab) 650 mg PO Q4H PRN PRN Reason: fever pain Stop: 03/29/24 18:33 Albuterol (Albut/Ipratrop 3mg/0.5mg Neb 3 Ml Vial) 3 ml NEB Q6R PRN; Protocol PRN Reason: Shortness Of Breath Or Wheezing Stop: 03/29/24 18:33 Dextrose (Dextrose 50% 50 Ml Syringe) 25 - 50 ml IV UD PRN; Protocol PRN Reason: Hypoglycemia Protocol Stop: 03/29/24 18:33 Enoxaparin Sodium (Enoxaparin Inj 40 Mg/0.4 Ml Syr) 40 mg SQ DAILY SONAM Stop: 03/30/24 08:59 Last Admin: 03/01/24 08:23 Dose: 40 mg Ferrous Sulfate (Ferrous Sulfate 325 Mg Tab) 325 mg PO BIDM SONAM Stop: 03/31/24 07:59 Last Admin: 03/01/24 10:14 Dose: 325 mg Glucagon (Glucagon For Inj 1 Mg Vial) 1 mg SQ UD PRN; Protocol PRN Reason: Hypoglycemia Protocol Stop: 03/29/24 18:33 Glucose (Glucose 40% Gel 15 Gm Tube) 15 - 30 gm PO UD PRN; Protocol PRN Reason: Hypoglycemia Protocol Stop: 03/29/24 18:33 Glucose (Glucose 10 Tab/Tube) 4 - 8 tab PO UD PRN; Protocol PRN Reason: Hypoglycemia Treatment Stop: 03/29/24 18:33 Haloperidol Lactate (Haloperidol Lactate 5 Mg/Ml 1 Ml Vial) 2.5 mg IV Q6H PRN PRN Reason: BPSD Stop: 03/29/24 16:57 Ceftriaxone Sodium (Rocephin) 2,000 mg in 50 mls @ 100 mls/hr IV Q24H COUNT [facility]CLUD[facility] Stop: 03/07/24 14:59 Last Infusion: 03/01/24 07:21 Dose: Infused Doxycycline Hyclate 100 mg/ (Dextrose) 100 mls @ 50 mls/hr IV Q12H SONAM Stop: 03/06/24 18:59 Last Infusion: 03/01/24 10:07 Dose: Infused Insulin Aspart (Insulin Aspart Per Unit Charge) 0 units SC ACHS COUNT [facility] Stop: 03/29/24 18:33 Last Admin: 03/01/24 11:46 Dose: Not Given Insulin Glargine (Lantus Per Unit Charge) 5 units SQ BID COUNT [facility] Stop: 03/29/24 20:59 Last Admin: 03/01/24 08:53 Dose: 5 units Levothyroxine Sodium (Levothyroxine Sodium 50 Mcg Tablet) 50 mcg PO DAILYBB SONAM Stop: 03/30/24 06:29 Last Admin: 03/01/24 06:23 Dose: 50 mcg Melatonin (Melatonin 3 Mg Tab) 6 mg PO HS COUNT [facility] Stop: 03/29/24 20:59 Last Admin: 02/29/24 23:02 Dose: 6 mg Memantine (Memantine Hcl 5 Mg Tab) 5 mg PO BID COUNT [facility] Stop: 03/29/24 20:59 Last Admin: 03/01/24 08:23 Dose: 5 mg Miscellaneous (Carbohydrates For Hypoglycemia ) 15 - 30 gm PO UD PRN PRN Reason: Hypoglycemia Protocol Stop: 03/29/24 18:33 Ondansetron HCl (Ondansetron Inj 2 Mg/Ml 2 Ml Vial) 4 mg IV Q6H PRN PRN Reason: Nausea And Vomiting Stop: 03/29/24 18:33 Quetiapine Fumarate (Quetiapine Fumarate 25 Mg Tablet) [address] [facility] Stop: 03/29/24 20:59 Last Admin: 02/29/24 21:36 Dose: 25 mg Rosuvastatin Calcium (Rosuvastatin Calcium 20 Mg Tab) [address] mg [address] [facility] Stop: 03/29/24 20:59 Last Admin: 02/29/24 21:35 Dose: 20 mg (3) Pneumonia Laterality: bilateral Lung location: unspecified part of lung Pneumonia type: due to unspecified organism Qualified Code(s): J18.9 - Pneumonia, unspecified organism (7) Hypothyroidism Hypothyroidism type: acquired Qualified Code(s): E03.9 - Hypothyroidism, unspecified
[2024-03-02 06:09] LABS: Basophils # (auto) 0.03 K/uL (0.00-0.20); Basophils % (auto) 0.3 %; Eosinophils # (auto) 0.31 K/uL (0.00-0.50); Eosinophils % (auto) 3.3 %; Hematocrit (blood only) 23.7 % (42.0-52.0); Hemoglobin 7.4 g/dl (14.0-18.0); Immature Granulocytes # (auto) 0.07 K/uL (0.01-0.20); Immature Granulocytes % (auto) 0.8 %; Lymphocytes # (auto) 2.07 K/uL (1.20-3.40); Lymphocytes % (auto) 22.2 %; Mean Corpuscular Hemoglobin 28.9 pg (25.0-34.0); Mean Corpuscular Hgb Conc 31.2 g/dL (32.0-36.0); Mean Corpuscular Volume 92.6 fL (80.0-100.0); Mean Platelet Volume 9.1 fL (9.4-12.4); Monocytes # (auto) 0.63 K/uL (0.11-0.59); Monocytes % (auto) 6.8 %; Neutrophils # (auto) 6.21 K/uL (1.40-6.50); Neutrophils % (auto) 66.6 %; Platelet Count 404 K/uL (130-400); Red Blood Count 2.56 M/uL (4.70-6.10); White Blood Count 9.32 K/ul (4.8-10.8)
[2024-03-02 06:30] LABS: BUN Creatinine Ratio 13.7 (10-20); Creatinine Clr Calc Pharmacy 79.3 ml/min; Est GFR (African American) 112.8 ml/min; Est GFR (Non-African American) 97.3 ml/min; Magnesium 1.6 mg/dl (1.7-2.4); Phosphorus 2.8 mg/dl (2.5-4.9); Potassium 3.6 mmol/L (3.5-5.1)
[2024-03-02] MEDS: DEXTROSE 50% 50 ML SYRINGE IV PRN (06:42)
[2024-03-02 07:04] LABS: RBC Morphology Unremarkable
[2024-03-02] MEDS: D5NSS + 20MEQ KCL 20 MEQ/1,000 ML BAG IV SCH (11:19)
[2024-03-02] MEDS: IRON SUCROSE 300 MG in SODIUM CHLORIDE 0.9% 250 ML IV ONE (11:19)
--- NOTE | 2024-03-02 15:11 | Hospitalist Progress Note ---
Date of Service March 02, 2024 Assessment & Plan (1) Acute metabolic encephalopathy: Plan: This is a 88-year-old male with history of dementia, diabetes mellitus type 2, recent COVID-19 and pneumonia, recent periprosthetic fracture right hip surgical treated at [place], among other medical problems who was sent from [facility] rehab for hypernatremia and ongoing confusion Acute metabolic encephalopathy: CT head with no acute normality except for acute sphenoid sinusitis. likely related to hyponatremia along with his dementia and delirium related to his hospitalizations. Continue IVF as above. Continue delirium precautions. Management as below Remains medically stable Clinically much better today and has been more responsive Trying to eat and was advised to drink more fluid Does not have any acute distress but remains confused Dysphagia with aspiration Appreciate speech evaluation recommendations Will keep him n.p.o. for now as per the recommendation Electrolyte abnormalities Has hyponatremia, hypokalemia, hypomagnesemia and hypophosphatemia Likely secondary to poor oral intake and dehydration Complicated by infection Will supplement intravenously and monitor electrolytes while in the hospital Electrolytes are normalized and will monitor Anemia-iron deficiency anemia Postop blood loss anemia-status post ORIF right hip on 01/29/2024 at [facility] hemoglobin currently stable at 8.6. Hemoglobin dropped to 7.0 as of today Will get iron studies and B12 and folate level No evidence of acute blood loss Dropping of hemoglobin is secondary to due to ongoing infection Will monitor hemoglobin and transfuse if it drops below 7 Has iron deficiency-received 1 dose of intravenous iron yesterday Hemoglobin is 7.4 today Will start oral iron and monitor blood count Will give another dose of intravenous iron Monitor CBC and he may need blood transfusion Deconditioning-history is taken from the daughter Deterioration of his mobility and overall medical status started to build up since he was transferred from [facility] following hip replacement to [facility] to continue physical therapy He has not been mobile and [facility] the [facility] 2 [facility] He has not been drinking and eating enough He was brought in with acute change in mental status and noted to have hypernatremia and severe electrolyte abnormalities as mentioned above He will get physical therapy evaluation and would likely need placement (2) Acute hypernatremia: Plan: Acute hypernatremia: sodium 152. Likely from poor oral intake given his dementia and confusion. He looks dry on examination. He was given 1 L of NSS in the ED. Which was changed to D5 and half-normal saline and likely D5 half-normal saline with potassium supplement Latest potassium is 148 and will monitor Sodium level has been normalized (3) Pneumonia: Plan: Multifocal Pneumonia/ acute sphenoid sinusitis: patient was diagnosed with COVID on 02/08 at [facility] and also received Ceftriaxone for 7 days for pneumonia. chest x-ray here shows multifocal pneumonia, unclear whether this is from his recent pneumonia versus a new one. He was started on ceftriaxone send doxycycline in the ED which we will continue for now - this will also cover the sinusitis. Will consult [employer]QUIPMENT MECHANIC eval to see if he might be aspirating. Lactic acidosis has resolved. No more fever and or chills and remains hemodynamically stable Will continue current antibiotic (4) Elevated troponin: Plan: Secondary to demand ischemia (5) Diabetes mellitus type 2 with complications: (6) Dementia: (7) Hypothyroidism: (8) Lab test positive for detection of COVID-19 virus: Plan :Other significant medical conditions are documented as below Elevated troponin: Likely Demand ischemia related to above. Denies chest pain. EKG with no acute changes. Will trend troponin for completeness. Diabetes mellitus type 2: On metformin, which will hold and continue Lantus Along with Humalog, as he is on D5W. carb controlled diet. Dementia with postoperative delirium- Continue Seroquel, melatonin, mementine, delirium precautions. Haldol prn if agitation. Hypothyroidism: continue Synthroid Lab test positive for detection of COVID-19 virus: recently tested positive for COVID-19 on 02/08 at [facility] and is still positive. No need for isolation. GOC discussion- discussed with son at bedside who is also POA along with the sisters. He is quite realistic. States he is DNR/DNI. He would like to continue IVF and antibiotics but he does not think he would want PEG tube or BIPAP or ICU transfer for pressors if it comes to that. DVT prophylaxis- continue subcu Lovenox which patient has been getting at the rehab. DNR/DNI per discussion with son at bedside who is also the POA. Disposition- MedSurg on telemetry Updated son at bedside Overall prognosis is poor Admission and Anticipated Discharge Date Admission Date: February 28, 2024 Subjective 02/29/2024 The patient was seen and examined in telemetry unit He remains semiresponsive responsive Opening his eyes and saying yes or no, squeezing hands on commands Says that he is minimally better since admission 03/01/2024 The patient was seen and examined in telemetry unit He has been more responsive today and has been communicating Pleasantly confused Does not have any acute distress 03/02/2024 The patient was seen and examined in telemetry unit in presence of the daughter He has been almost bed bound for the last few weeks since [facility] He has not been eating and drinking enough and has been having aspiration when he tries to eat or drink Speech therapy recommended n.p.o. for now Review of Systems Review of Systems: All systems reviewed and are unremarkable except as noted below Physical Exam Physical Exam: No apparent distress at rest and has been communicating with daughter almost normally Constitutional: + ill appearing and + thin Eyes: PERRL, conjunctivae normal, anicteric sclerae ENMT: external ear and nose normal, oropharynx normal Neck: trachea midline, no thyromegaly Respiratory: + respiratory distress (Minimal respirat ory distress) Auscultation: + diminished lung sounds and + crackles (Minimal crackles bilaterally at the bases) Cardiovascular: Rate/Rhythm: regular rate and regular rhythm Heart Sounds: normal S1 and normal S2; no murmur Extremities: no edema Gastrointestinal (Abdomen): Inspection/Auscultation: normal bowel sounds; abdomen not distended Percussion/Palpation: abdomen soft; abdomen nontender Neurologic: Alert and awake. Remains confused. Moves extremities a little Lymphatic: no cervical or axillary lymphadenopathy Results & Data Results & Data Vital Signs (Past 12 Hours) Vital Signs Temp Pulse Pulse Resp BP BP Pulse Ox 03/02/24 14:40 36.5 C 60 18 127/81 96 03/02/24 14:09 83 03/02/24 11:29 36.5 C 82 19 114/66 96 03/02/24 08:02 36.5 C 88 18 100/47 L 98 03/02/24 08:00 03/02/24 07:24 83 O2 Del Method 03/02/24 14:40 Room Air 03/02/24 14:09 03/02/24 11:29 Room Air 03/02/24 08:02 Room Air 03/02/24 08:00 Room Air 03/02/24 07:24 Laboratory Results Short CBC 03/02/24 Range/Units 05:41 WBC 9.32 (4.8-10.8) K/ul Hgb 7.4 L (14.0-18.0) g/dl Hct 23.7 L (42.0-52.0) % Plt Count 404 H (130-400) K/uL BMP 03/02/24 05:41 Sodium 142 Potassium 3.6 Chloride 109 H Carbon Dioxide 28 BUN 7 Creatinine 0.51 L Glucose 64 L Calcium 8.0 L Medications Administered Current Inpatient Medications Acetaminophen (Acetaminophen 325 Mg Tab) 650 mg PO Q4H PRN PRN Reason: fever pain Stop: 03/29/24 18:33 Albuterol (Albut/Ipratrop 3mg/0.5mg Neb 3 Ml Vial) 3 ml NEB Q6R PRN; Protocol PRN Reason: Shortness Of Breath Or Wheezing Stop: 03/29/24 18:33 Dextrose (Dextrose 50% 50 Ml Syringe) 25 - 50 ml IV UD PRN; Protocol PRN Reason: Hypoglycemia Protocol Stop: 03/29/24 18:33 Last Admin: 03/02/24 06:42 Dose: 25 ml Enoxaparin Sodium (Enoxaparin Inj 40 Mg/0.4 Ml Syr) 40 mg SQ DAILY SONAM Stop: 03/30/24 08:59 Last Admin: 03/02/24 09:37 Dose: 40 mg Ferrous Sulfate (Ferrous Sulfate 325 Mg Tab) 325 mg PO BIDM SONAM Stop: 03/31/24 07:59 Last Admin: 03/02/24 09:43 Dose: Not Given Glucagon (Glucagon For Inj 1 Mg Vial) 1 mg SQ UD PRN; Protocol PRN Reason: Hypoglycemia Protocol Stop: 03/29/24 18:33 Glucose (Glucose 40% Gel 15 Gm Tube) 15 - 30 gm PO UD PRN; Protocol PRN Reason: Hypoglycemia Protocol Stop: 03/29/24 18:33 Glucose (Glucose 10 Tab/Tube) 4 - 8 tab PO UD PRN; Protocol PRN Reason: Hypoglycemia Treatment Stop: 03/29/24 18:33 Haloperidol Lactate (Haloperidol Lactate 5 Mg/Ml 1 Ml Vial) 2.5 mg IV Q6H PRN PRN Reason: BPSD Stop: 03/29/24 16:57 Ceftriaxone Sodium (Rocephin) 2,000 mg in 50 mls @ 100 mls/hr IV Q24H [facility]ON[facility] Stop: 03/07/24 14:59 Last Infusion: 03/01/24 16:11 Dose: Infused Doxycycline Hyclate 100 mg/ (Dextrose) 100 mls @ 50 mls/hr IV Q12H [facility] Stop: 03/06/24 18:59 Last Infusion: 03/02/24 08:42 Dose: Infused Potassium Chloride/Dextrose/Sod Cl (D5nss + 20meq Kcl) 20 meq in 1,000 mls @ 80 mls/hr IV .[id number] [facility]; Protocol Stop: 03/03/24 23:59 Last Admin: 03/02/24 11:19 Dose: 80 mls/hr Insulin Aspart (Insulin Aspart Per Unit Charge) 0 units SC ACHS [facility] Stop: 03/29/24 18:33 Last Admin: 03/02/24 11:19 Dose: Not Given Insulin Glargine (Lantus Per Unit Charge) 5 units SQ BID [facility] Stop: 03/29/24 20:59 Last Admin: 03/02/24 08:40 Dose: Not Given Levothyroxine Sodium (Levothyroxine Sodium 50 Mcg Tablet) 50 mcg PO DAILYBB [facility] Stop: 03/30/24 06:29 Last Admin: 03/02/24 06:36 Dose: 50 mcg Melatonin (Melatonin 3 Mg Tab) 6 mg PO [facility] Stop: 03/29/24 20:59 Last Admin: 03/01/24 21:05 Dose: 6 mg Memantine (Memantine Hcl 5 Mg Tab) 5 mg PO BID [facility] Stop: 03/29/24 20:59 Last Admin: 03/02/24 09:38 Dose: 5 mg Miscellaneous (Carbohydrates For Hypoglycemia ) 15 - 30 gm PO UD PRN PRN Reason: Hypoglycemia Protocol Stop: 03/29/24 18:33 Ondansetron HCl (Ondansetron Inj 2 Mg/Ml 2 Ml Vial) 4 mg IV Q6H PRN PRN Reason: Nausea And Vomiting Stop: 03/29/24 18:33 Quetiapine Fumarate (Quetiapine Fumarate 25 Mg Tablet) 25 mg PO [facility] Stop: 03/29/24 20:59 Last Admin: 03/01/24 21:05 Dose: 25 mg Rosuvastatin Calcium (Rosuvastatin Calcium 20 Mg Tab) 20 mg PO [facility] Stop: 03/29/24 20:59 Last Admin: 03/01/24 21:05 Dose: 20 mg (3) Pneumonia Laterality: bilateral Lung location: unspecified part of lung Pneumonia type: due to unspecified organism Qualified Code(s): J18.9 - Pneumonia, unspecified organism (7) Hypothyroidism Hypothyroidism type: acquired Qualified Code(s): E03.9 - Hypothyroidism, unspecified
[2024-03-03 07:55] LABS: Basophils # (auto) 0.05 K/uL (0.00-0.20); Basophils % (auto) 0.6 %; Eosinophils # (auto) 0.34 K/uL (0.00-0.50); Eosinophils % (auto) 3.9 %; Hematocrit (blood only) 24.1 % (42.0-52.0); Hemoglobin 7.6 g/dl (14.0-18.0); Immature Granulocytes # (auto) 0.09 K/uL (0.01-0.20); Lymphocytes # (auto) 1.77 K/uL (1.20-3.40); Mean Corpuscular Hemoglobin 29.2 pg (25.0-34.0); Mean Corpuscular Hgb Conc 31.5 g/dL (32.0-36.0); Mean Corpuscular Volume 92.7 fL (80.0-100.0); Mean Platelet Volume 9.3 fL (9.4-12.4); Monocytes # (auto) 0.63 K/uL (0.11-0.59); Monocytes % (auto) 7.1 %; Neutrophils # (auto) 5.95 K/uL (1.40-6.50); Neutrophils % (auto) 67.4 %; Platelet Count 389 K/uL (130-400); RDW Coefficient of Variation 14.9 % (11.5-14.5); RDW Standard Deviation 49.6 fL (36.4-46.3); White Blood Count 8.83 K/ul (4.8-10.8)
[2024-03-03 08:10] LABS: BUN Creatinine Ratio 10.6 (10-20); Calcium 8.1 mg/dl (8.6-10.3); Est GFR (African American) 116.7 ml/min; Est GFR (Non-African American) 100.7 ml/min; Magnesium 1.5 mg/dl (1.7-2.4); Potassium 4.5 mmol/L (3.5-5.1)
[2024-03-03 08:18] LABS: Polychromasia 1+
[2024-03-03] MEDS ORDERED: SODIUM PHOSPHATE 3 MMOL/1 ML 5 ML VIAL IV ONE (08:39)
[2024-03-03] MEDS: MAGNESIUM SULFATE / D5W 1 GM/100 ML BAG IV ONE (09:08)
[2024-03-03] MEDS: SODIUM PHOSPHATE 24 MMOL in SODIUM CHLORIDE 0.9% 500 ML IV ONE (10:51)
[2024-03-03] MEDS: D5W AND NSS 1,000 ML IV SCH (10:59)
--- NOTE | 2024-03-03 13:48 | Hospitalist Progress Note ---
Date of Service March 03, 2024 Assessment & Plan (1) Acute metabolic encephalopathy: Plan: This is a 88-year-old male with history of dementia, diabetes mellitus type 2, recent COVID-19 and pneumonia, recent periprosthetic fracture right hip surgical treated at [place], among other medical problems who was sent from [facility] rehab for hypernatremia and ongoing confusion Acute metabolic encephalopathy: CT head with no acute normality except for acute sphenoid sinusitis. likely related to hyponatremia along with his dementia and delirium related to his hospitalizations. Continue IVF as above. Continue delirium precautions. Management as below Remains medically stable Clinically much better today and has been more responsive Trying to eat and was advised to drink more fluid Does not have any acute distress but remains confused Remains medically stable without any apparent distress at rest Dysphagia with aspiration Appreciate speech evaluation recommendations Will keep him n.p.o. for now as per the recommendation Has had speech evaluation with recommendation of the modified diet Electrolyte abnormalities Has hyponatremia, hypokalemia, hypomagnesemia and hypophosphatemia Likely secondary to poor oral intake and dehydration Complicated by infection Will supplement intravenously and monitor electrolytes while in the hospital Electrolytes are normalized and will monitor Still getting electrolytes replacement and will monitor Anemia-iron deficiency anemia Postop blood loss anemia-status post ORIF right hip on 01/29/2024 at [facility] hemoglobin currently stable at 8.6. Hemoglobin dropped to 7.0 as of today Will get iron studies and B12 and folate level No evidence of acute blood loss Dropping of hemoglobin is secondary to due to ongoing infection Will monitor hemoglobin and transfuse if it drops below 7 Has iron deficiency-received 1 dose of intravenous iron yesterday Hemoglobin is 7.4 today Will start oral iron and monitor blood count Will give another dose of intravenous iron hemoglobin went up to 7.6 following iron infusion Deconditioning-history is taken from the daughter Deterioration of his mobility and overall medical status started to build up since he was transferred from [facility] following hip replacement to [facility] to continue physical therapy He has not been mobile and laying in bed most of the time at [facility] for the last 1 or 2 weeks He has not been drinking and eating enough He was brought in with acute change in mental status and noted to have hypernatremia and severe electrolyte abnormalities as mentioned above He will get physical therapy evaluation and would likely need placement Down the line if the condition does not improve he will need to have a palliative care evaluation (2) Acute hypernatremia: Plan: Acute hypernatremia: sodium 152. Likely from poor oral intake given his dementia and confusion. He looks dry on examination. He was given 1 L of NSS in the ED. Which was changed to D5 and half-normal saline and likely D5 half-normal saline with potassium supplement Latest potassium is 148 and will monitor Sodium level has been normalized (3) Pneumonia: Plan: Multifocal Pneumonia/ acute sphenoid sinusitis: patient was diagnosed with COVID on 02/08 at [facility] and also received Ceftriaxone for 7 days for pneumonia. chest x-ray here shows multifocal pneumonia, unclear whether this is from his recent pneumonia versus a new one. He was started on ceftriaxone send doxycycline in the ED which we will continue for now - this will also cover the sinusitis. Will consult ANALYT[employer] SENIOR MANAGER evmartina to see if he might be aspirating. Lactic acidosis has resolved. No more fever and or chills and remains hemodynamically stable Will continue current antibiotic (4) Elevated troponin: Plan: Secondary to demand ischemia (5) Diabetes mellitus type 2 with complications: (6) Dementia: (7) Hypothyroidism: (8) Lab test positive for detection of COVID-19 virus: Plan :Other significant medical conditions are documented as below Elevated troponin: Likely Demand ischemia related to above. Denies chest pain. EKG with no acute changes. Will trend troponin for completeness. Diabetes mellitus type 2: On metformin, which will hold and continue Lantus Along with Humalog, as he is on D5W. carb controlled diet. Dementia with postoperative delirium- Continue Seroquel, melatonin, mementine, delirium precautions. Haldol prn if agitation. Hypothyroidism: continue Synthroid Lab test positive for detection of COVID-19 virus: recently tested positive for COVID-19 on 02/08 at [facility] and is still positive. No need for isolation. GOC discussion- discussed with son at bedside who is also POA along with the sisters. He is quite realistic. States he is DNR/DNI. He would like to continue IVF and antibiotics but he does not think he would want PEG tube or BIPAP or ICU transfer for pressors if it comes to that. DVT prophylaxis- continue subcu Lovenox which patient has been getting at the rehab. DNR/DNI per discussion with son at bedside who is also the POA. Disposition- MedSurg on telemetry Updated son at bedside Overall prognosis is poor Admission and Anticipated Discharge Date Admission Date: February 28, 2024 Subjective 02/29/2024 The patient was seen and examined in telemetry unit He remains semiresponsive responsive Opening his eyes and saying yes or no, squeezing hands on commands Says that he is minimally better since admission 03/01/2024 The patient was seen and examined in telemetry unit He has been more responsive today and has been communicating Pleasantly confused Does not have any acute distress 03/02/2024 The patient was seen and examined in telemetry unit in presence of the daughter He has been almost bed bound for the last few weeks since he was transferred to [facility] for rehab He has not been eating and drinking enough and has been having aspiration when he tries to eat or drink Speech therapy recommended n.p.o. for now 03/03/2024 The patient was seen and examined in telemetry unit He is much alert and awake today but remains confused Has had speech therapy evaluation and recommended a modified diet Review of Systems Review of Systems: Unobtainable due to cognitive status Physical Exam Physical Exam: No apparent distress at rest and has been communicating reasonably Constitutional: + ill appearing and + thin Eyes: PERRL, conjunctivae normal, anicteric sclerae ENMT: external ear and nose normal, oropharynx normal Neck: trachea midline, no thyromegaly Respiratory: + respiratory distress (Minimal respirat ory distress) Auscultation: + diminished lung sounds and + crackles (Minimal crackles bilaterally at the bases) Cardiovascular: Rate/Rhythm: regular rate and regular rhythm Heart Sounds: normal S1 and normal S2; no murmur Extremities: no edema Gastrointestinal (Abdomen): Inspection/Auscultation: normal bowel sounds; abdomen not distended Percussion/Palpation: abdomen soft; abdomen nontender Musculoskeletal: No acute fracture involving any of the joint Neurologic: Alert and awake. Minimal movements involving the limbs. Minimally communicative Lymphatic: no cervical or axillary lymphadenopathy Results & Data Results & Data Vital Signs (Past 12 Hours) Vital Signs Temp Pulse Pulse Resp BP Pulse Ox O2 Del Method 03/03/24 13:17 88 03/03/24 10:28 36.8 C 78 18 120/65 98 Room Air 03/03/24 08:00 Room Air 03/03/24 07:21 36.7 C 82 18 121/68 97 Room Air 03/03/24 03:50 36.7 C 84 18 128/68 98 Room Air Laboratory Results Short CBC 03/03/24 Range/Units 06:38 WBC 8.83 (4.8-10.8) K/ul Hgb 7.6 L (14.0-18.0) g/dl Hct 24.1 L (42.0-52.0) % Plt Count 389 (130-400) K/uL BMP 03/03/24 06:38 Sodium 140 Potassium 4.5 D Chloride 108 H Carbon Dioxide 26 BUN 5 L Creatinine 0.47 L Glucose 91 Calcium 8.1 L Medications Administered Current Inpatient Medications Acetaminophen (Acetaminophen 325 Mg Tab) 650 mg PO Q4H PRN PRN Reason: fever pain Stop: 03/29/24 18:33 Albuterol (Albut/Ipratrop 3mg/0.5mg Neb 3 Ml Vial) 3 ml NEB Q6R PRN; Protocol PRN Reason: Shortness Of Breath Or Wheezing Stop: 03/29/24 18:33 Dextrose (Dextrose 50% 50 Ml Syringe) 25 - 50 ml IV UD PRN; Protocol PRN Reason: Hypoglycemia Protocol Stop: 03/29/24 18:33 Last Admin: 03/02/24 06:42 Dose: 25 ml Enoxaparin Sodium (Enoxaparin Inj 40 Mg/0.4 Ml Syr) 40 mg SQ DAILY SONAM Stop: 03/30/24 08:59 Last Admin: 03/03/24 09:12 Dose: 40 mg Ferrous Sulfate (Ferrous Sulfate 325 Mg Tab) 325 mg PO BIDM SON[facility] Stop: 03/31/24 07:59 Last Admin: 03/03/24 10:59 Dose: 325 mg Glucagon (Glucagon For Inj 1 Mg Vial) 1 mg SQ UD PRN; Protocol PRN Reason: Hypoglycemia Protocol Stop: 03/29/24 18:33 Glucose (Glucose 40% Gel 15 Gm Tube) 15 - 30 gm PO UD PRN; Protocol PRN Reason: Hypoglycemia Protocol Stop: 03/29/24 18:33 Glucose (Glucose 10 Tab/Tube) 4 - 8 tab PO UD PRN; Protocol PRN Reason: Hypoglycemia Treatment Stop: 03/29/24 18:33 Haloperidol Lactate (Haloperidol Lactate 5 Mg/Ml 1 Ml Vial) 2.5 mg IV Q6H PRN PRN Reason: BPSD Stop: 03/29/24 16:57 Ceftriaxone Sodium (Rocephin) 2,000 mg in 50 mls @ 100 mls/hr IV Q24H SON[facility] Stop: 03/07/24 14:59 Last Infusion: 03/02/24 16:23 Dose: Infused Doxycycline Hyclate 100 mg/ (Dextrose) 100 mls @ 50 mls/hr IV Q12H SON[facility] Stop: 03/06/24 18:59 Last Infusion: 03/03/24 08:50 Dose: Infused Sodium Phosphate 24 mmol/ (Sodium Chloride) 508 mls @ 88 mls/hr IV ONE ONE Stop: 03/03/24 14:46 Last Admin: 03/03/24 10:51 Dose: 88 mls/hr Dextrose/Sodium Chloride (D5w And Nss) 1,000 mls @ 80 mls/hr IV .[id number] [facility] Stop: 03/04/24 22:59 Last Admin: 03/03/24 10:59 Dose: 80 mls/hr Insulin Aspart (Insulin Aspart Per Unit Charge) 0 units SC ACHS [facility] Stop: 03/29/24 18:33 Last Admin: 03/03/24 11:53 Dose: Not Given Insulin Glargine (Lantus Per Unit Charge) 5 units SQ BID [facility] Stop: 03/29/24 20:59 Last Admin: 03/03/24 09:41 Dose: Not Given Levothyroxine Sodium (Levothyroxine Sodium 50 Mcg Tablet) 50 mcg PO DAILYBB [facility] Stop: 03/30/24 06:29 Last Admin: 03/03/24 06:43 Dose: Not Given Melatonin (Melatonin 3 Mg Tab) 6 mg PO HS [facility] Stop: 03/29/24 20:59 Last Admin: 03/02/24 20:12 Dose: 6 mg Memantine (Memantine Hcl 5 Mg Tab) 5 mg PO BID [facility] Stop: 03/29/24 20:59 Last Admin: 03/03/24 10:58 Dose: 5 mg Miscellaneous (Carbohydrates For Hypoglycemia ) 15 - 30 gm PO UD PRN PRN Reason: Hypoglycemia Protocol Stop: 03/29/24 18:33 Ondansetron HCl (Ondansetron Inj 2 Mg/Ml 2 Ml Vial) 4 mg IV Q6H PRN PRN Reason: Nausea And Vomiting Stop: 03/29/24 18:33 Quetiapine Fumarate (Quetiapine Fumarate 25 Mg Tablet) 25 mg PO [facility] Stop: 03/29/24 20:59 Last Admin: 03/02/24 20:12 Dose: 25 mg Rosuvastatin Calcium (Rosuvastatin Calcium 20 Mg Tab) 20 mg PO [facility] Stop: 03/29/24 20:59 Last Admin: 03/02/24 20:13 Dose: 20 mg (3) Pneumonia Laterality: bilateral Lung location: unspecified part of lung Pneumonia type : due to unspecified organism Qualified Code(s): J18.9 - Pneumonia, unspecified organism (7) Hypothyroidism Hypothyroidism type: acquired Qualified Code(s): E03.9 - Hypothyroidism, unspecified
[2024-03-04 07:29] LABS: Hematocrit (blood only) 21.7 % (42.0-52.0); Hemoglobin 6.8 g/dl (14.0-18.0); Mean Corpuscular Hemoglobin 28.9 pg (25.0-34.0); Mean Corpuscular Hgb Conc 31.3 g/dL (32.0-36.0); Mean Corpuscular Volume 92.3 fL (80.0-100.0); Mean Platelet Volume 9.2 fL (9.4-12.4); Platelet Count 318 K/uL (130-400); RDW Coefficient of Variation 15.1 % (11.5-14.5); RDW Standard Deviation 49.1 fL (36.4-46.3); Red Blood Count 2.35 M/uL (4.70-6.10); White Blood Count 9.02 K/ul (4.8-10.8)
[2024-03-04] MEDS ORDERED: SODIUM CHLORIDE 0.9% 250 ML IV PRN (07:41)
[2024-03-04 07:44] LABS: BUN Creatinine Ratio 6.7 (10-20); Calcium 7.4 mg/dl (8.6-10.3); Creatinine Clr Calc Pharmacy 89.8 ml/min; Est GFR (African American) 118.8 ml/min; Est GFR (Non-African American) 102.5 ml/min; Magnesium 1.5 mg/dl (1.7-2.4); Potassium 3.5 mmol/L (3.5-5.1)
[2024-03-04 07:54] LABS: Basophils # (auto) 0.02 K/uL (0.00-0.20); Basophils % (auto) 0.2 %; Eosinophils # (auto) 0.34 K/uL (0.00-0.50); Eosinophils % (auto) 3.8 %; Immature Granulocytes # (auto) 0.07 K/uL (0.01-0.20); Immature Granulocytes % (auto) 0.8 %; Lymphocytes # (auto) 1.92 K/uL (1.20-3.40); Lymphocytes % (auto) 21.3 %; Monocytes # (auto) 0.73 K/uL (0.11-0.59); Monocytes % (auto) 8.1 %; Neutrophils # (auto) 5.94 K/uL (1.40-6.50); Neutrophils % (auto) 65.8 %; RBC Morphology Unremarkable
[2024-03-04] MEDS ORDERED: POTASSIUM PHOS 3 MMOL/1 ML INFUSION IV STA (08:48)
[2024-03-04] MEDS: POTASSIUM PHOSPHATE 24 MMOL in SODIUM CHLORIDE 0.9% 500 ML IV ONE (10:37)
[2024-03-04] MEDS: MAGNESIUM SULFATE / D5W 1 GM/100 ML BAG IV ONE (10:39)
--- NOTE | 2024-03-04 13:00 | Hospitalist Progress Note ---
Date of Service March 04, 2024 Assessment & Plan (1) Acute metabolic encephalopathy: Plan: This is a 88-year-old male with history of dementia, diabetes mellitus type 2, recent COVID-19 and pneumonia, recent periprosthetic fracture right hip surgical treated at [place], among other medical problems who was sent from [facility] rehab for hypernatremia and ongoing confusion Acute metabolic encephalopathy: CT head with no acute normality except for acute sphenoid sinusitis. likely related to hyponatremia along with his dementia and delirium related to his hospitalizations. Continue IVF as above. Continue delirium precautions. Management as below Remains medically stable Clinically much better today and has been more responsive Trying to eat and was advised to drink more fluid Does not have any acute distress but remains confused Remains medically stable without any apparent distress at rest Seems to be at his baseline with dementia Dysphagia with aspiration Appreciate speech evaluation recommendations Will keep him n.p.o. for now as per the recommendation Has had speech evaluation with recommendation of the modified diet Appreciate speech therapy input and recommendation Electrolyte abnormalities Has hyponatremia, hypokalemia, hypomagnesemia and hypophosphatemia Likely secondary to poor oral intake and dehydration Complicated by infection Will supplement intravenously and monitor electrolytes while in the hospital Electrolytes are normalized and will monitor Still getting electrolytes replacement and will monitor Electrolytes and getting better with supplement Anemia-iron deficiency anemia Postop blood loss anemia-status post ORIF right hip on 01/29/2024 at [facility] hemoglobin currently stable at 8.6. Hemoglobin dropped to 7.0 as of today Will get iron studies and B12 and folate level No evidence of acute blood loss Dropping of hemoglobin is secondary to due to ongoing infection Will monitor hemoglobin and transfuse if it drops below 7 Has iron deficiency-received 1 dose of intravenous iron yesterday Hemoglobin is 7.4 today Will start oral iron and monitor blood count Will give another dose of intravenous iron Hemoglobin has dropped to 6.8 and we will give 1 unit of blood transfusion Deconditioning-history is taken from the daughter Deterioration of his mobility and overall medical status started to build up since he was transferred from [facility] following hip replacement to [facility] to continue physical therapy He has not been mobile and laying in bed most of the time at [facility] for the last 1 or 2 weeks He has not been drinking and eating enough He was brought in with acute change in mental status and noted to have hypernatremia and severe electrolyte abnormalities as mentioned above He will get physical therapy evaluation and would likely need placement Down the line if the condition does not improve he will need to have a palliative care evaluation (2) Acute hypernatremia: Plan: Acute hypernatremia: sodium 152. Likely from poor oral intake given his dementia and confusion. He looks dry on examination. He was given 1 L of NSS in the ED. Which was changed to D5 and half-normal saline and likely D5 half-normal saline with potassium supplement Latest potassium is 148 and will monitor Sodium level has been normalized (3) Pneumonia: Plan: Multifocal Pneumonia/ acute sphenoid sinusitis: patient was diagnosed with COVID on 02/08 at [facility] and also received Ceftriaxone for 7 days for pneumonia. chest x-ray here shows multifocal pneumonia, unclear whether this is from his recent pneumonia versus a new one. He was started on ceftriaxone send doxycycline in the ED which we will continue for now - this will also cover the sinusitis. Will consult [employer] EXAMINER evmartina to see if he might be aspirating. Lactic acidosis has resolved. No more fever and or chills and remains hemodynamically stable Will continue current antibiotic-has been on intravenous ceftriaxone and doxycycline and will continue (4) Elevated troponin: Plan: Secondary to demand ischemia (5) Diabetes mellitus type 2 with complications: (6) Dementia: (7) Hypothyroidism: (8) Lab test positive for detection of COVID-19 virus: Plan :Other significant medical conditions are documented as below Elevated troponin: Likely Demand ischemia related to above. Denies chest pain. EKG with no acute changes. Will trend troponin for completeness. Diabetes mellitus type 2: On metformin, which will hold and continue Lantus Along with Humalog, as he is on D5W. carb controlled diet. Dementia with postoperative delirium- Continue Seroquel, melatonin, mementine, delirium precautions. Haldol prn if agitation. Hypothyroidism: continue Synthroid Lab test positive for detection of COVID-19 virus: recently tested positive for COVID-19 on 02/08 at [facility] and is still positive. No need for isolation. GOC discussion- discussed with son at bedside who is also POA along with the sisters. He is quite realistic. States he is DNR/DNI. He would like to continue IVF and antibiotics but he does not think he would want PEG tube or BIPAP or ICU transfer for pressors if it comes to that. DVT prophylaxis- continue subcu Lovenox which patient has been getting at the rehab. DNR/DNI per discussion with son at bedside who is also the POA. Disposition- MedSurg on telemetry Updated son at bedside Overall prognosis is poor Will discuss with the son about the need for care consultation Admission and Anticipated Discharge Date Admission Date: February 28, 2024 Subjective 02/29/2024 The patient was seen and examined in telemetry unit He remains semiresponsive responsive Opening his eyes and saying yes or no, squeezing hands on commands Says that he is minimally better since admission 03/01/2024 The patient was seen and examined in telemetry unit He has been more responsive today and has been communicating Pleasantly confused Does not have any acute distress 03/02/2024 The patient was seen and examined in telemetry unit in presence of the daughter He has been almost bed bound for the last few weeks since he was transferred to [facility] for rehab He has not been eating and drinking enough and has been having aspiration when he tries to eat or drink Speech therapy recommended n.p.o. for now 03/03/2024 The patient was seen and examined in telemetry unit He is much alert and awake today but remains confused Has had speech therapy evaluation and recommended a modified diet 03/04/2024 The patient was seen and examined in telemetry unit He has been eating better today and has been eating reasonably Remains pleasantly confused and not in any other distress Has been saturating normally on room air Discussed with daughter and the patient will be put for a palliative care evaluation Review of Systems Review of Systems: All systems reviewed and are unremarkable except as noted below Physical Exam Physical Exam: No apparent distress at rest and has been communicating reasonably Constitutional: + ill appearing and + thin Eyes: PERRL, conjunctivae normal, anicteric sclerae ENMT: external ear and nose normal, oropharynx normal Neck: trachea midline, no thyromegaly Respiratory: + respiratory distress (Minimal respirat ory distress) Auscultation: + diminished lung sounds and + crackles (Minimal crackles bilaterally at the bases) Cardiovascular: Rate/Rhythm: regular rate and regular rhythm Heart Sounds: normal S1 and normal S2; no murmur Extremities: no edema Gastrointestinal (Abdomen): Inspection/Auscultation: normal bowel sounds; abdomen not distended Percussion/Palpation: abdomen soft; abdomen nontender Musculoskeletal: No acute arthritis involving any of the joint Neurologic: Alert and awake. Pleasantly confused. Minimally conversive. Lymphatic: no cervical or axillary lymphadenopathy Results & Data Results & Data Vital Signs (Past 12 Hours) Vital Signs Temp Pulse Pulse Resp BP BP Pulse Ox 03/04/24 12:31 36.7 C 87 14 132/74 93 03/04/24 12:16 36.9 C 81 15 121/73 94 03/04/24 11:56 36.8 C 81 14 127/70 94 03/04/24 08:00 03/04/24 07:31 80 03/04/24 07:02 36.2 C L 82 20 126/72 96 03/04/24 02:45 36.8 C 96 H 20 122/68 97 O2 Del Method 03/04/24 12:31 03/04/24 12:16 03/04/24 11:56 03/04/24 08:00 Room Air 03/04/24 07:31 03/04/24 07:02 Room Air 03/04/24 02:45 Room Air Laboratory Results Short CBC 03/04/24 Range/Units 06:45 WBC 9.02 (4.8-10.8) K/ul Hgb 6.8 L* (14.0-18.0) g/dl Hct 21.7 L (42.0-52.0) % Plt Count 318 (130-400) K/uL BMP 03/04/24 06:45 Sodium 139 Potassium 3.5 D Chloride 109 H Carbon Dioxide 25 BUN 3 L Creatinine 0.45 L Glucose 117 H Calcium 7.4 L Medications Administered Current Inpatient Medications Acetaminophen (Acetaminophen 325 Mg Tab) 650 mg PO Q4H PRN PRN Reason: fever pain Stop: 03/29/24 18:33 Albuterol (Albut/Ipratrop 3mg/0.5mg Neb 3 Ml Vial) 3 ml NEB Q6R PRN; Protocol PRN Reason: Shortness Of Breath Or Wheezing Stop: 03/29/24 18:33 Dextrose (Dextrose 50% 50 Ml Syringe) 25 - 50 ml IV UD PRN; Protocol PRN Reason: Hypoglycemia Protocol Stop: 03/29/24 18:33 Last Admin: 03/02/24 06:42 Dose: 25 ml Enoxaparin Sodium (Enoxaparin Inj 40 Mg/0.4 Ml Syr) 40 mg SQ DAILY SONAM Stop: 03/30/24 08:59 Last Admin: 03/04/24 08:19 Dose: 40 mg Ferrous Sulfate (Ferrous Sulfate 325 Mg Tab) 325 mg PO BIDM [facility] Stop: 03/31/24 07:59 Last Admin: 03/04/24 08:18 Dose: 325 mg Glucagon (Glucagon For Inj 1 Mg Vial) 1 mg SQ UD PRN; Protocol PRN Reason: Hypoglycemia Protocol Stop: 03/29/24 18:33 Glucose (Glucose 40% Gel 15 Gm Tube) 15 - 30 gm PO UD PRN; Protocol PRN Reason: Hypoglycemia Protocol Stop: 03/29/24 18:33 Glucose (Glucose 10 Tab/Tube) 4 - 8 tab PO UD PRN; Protocol PRN Reason: Hypoglycemia Treatment Stop: 03/29/24 18:33 Haloperidol Lactate (Haloperidol Lactate 5 Mg/Ml 1 Ml Vial) 2.5 mg IV Q6H PRN PRN Reason: BPSD Stop: 03/29/24 16:57 Ceftriaxone Sodium (Rocephin) 2,000 mg in 50 mls @ 100 mls/hr IV Q24H [facility] Stop: 03/07/24 14:59 Last Infusion: 03/03/24 17:05 Dose: Infused Doxycycline Hyclate 100 mg/ (Dextrose) 100 mls @ 50 mls/hr IV Q12H [facility] Stop: 03/06/24 18:59 Last Infusion: 03/04/24 08:20 Dose: Infused Sodium Chloride (Nss) 250 mls @ 15 mls/hr IV .[id number] PRN PRN Reason: For Transfusion Duration Stop: 03/04/24 17:41 Potassium Phosphate 24 mmol/ (Sodium Chloride) 508 mls @ 88 mls/hr IV ONE ONE Stop: 03/04/24 14:46 Last Admin: 03/04/24 10:37 Dose: 88 mls/hr Insulin Aspart (Insulin Aspart Per Unit Charge) 0 units SC ACHS [facility] Stop: 03/29/24 18:33 Last Admin: 03/04/24 11:41 Dose: Not Given Insulin Glargine (Lantus Per Unit Charge) 5 units SQ BID [facility] Stop: 03/29/24 20:59 Last Admin: 03/04/24 11:38 Dose: Not Given Levothyroxine Sodium (Levothyroxine Sodium 50 Mcg Tablet) 50 mcg PO DAILYBB [facility] Stop: 03/30/24 06:29 Last Admin: 03/04/24 06:20 Dose: 50 mcg Melatonin (Melatonin 3 Mg Tab) 6 mg PO [facility] Stop: 03/29/24 20:59 Last Admin: 03/03/24 20:15 Dose: 6 mg Memantine (Memantine Hcl 5 Mg Tab) 5 mg PO BID [facility] Stop: 03/29/24 20:59 Last Admin: 03/04/24 11:39 Dose: Not Given Miscellaneous (Carbohydrates For Hypoglycemia ) 15 - 30 gm PO UD PRN PRN Reason: Hypoglycemia Protocol Stop: 03/29/24 18:33 Ondansetron HCl (Ondansetron Inj 2 Mg/Ml 2 Ml Vial) 4 mg IV Q6H PRN PRN Reason: Nausea And Vomiting Stop: 03/29/24 18:33 Quetiapine Fumarate (Quetiapine Fumarate 25 Mg Tablet) 25 mg PO [facility] Stop: 03/29/24 20:59 Last Admin: 03/03/24 20:12 Dose: 25 mg Rosuvastatin Calcium (Rosuvastatin Calcium 20 Mg Tab) 20 mg PO [facility] Stop: 03/29/24 20:59 Last Admin: 03/03/24 20:12 Dose: 20 mg (3) Pneumonia Laterality: bilateral Lung location: unspecified part of lung Pneumonia type: due to unspecified organism Qualified Code(s): J18.9 - Pneumonia, unspecified organism (7) Hypothyroidism Hypothyroidism type: acquired Qualified Code(s): E03.9 - Hypothyroidism, unspecified
[2024-03-05 09:34] LABS: Hematocrit (blood only) 29.4 % (42.0-52.0); Hemoglobin 9.5 g/dl (14.0-18.0); Mean Corpuscular Hemoglobin 29.8 pg (25.0-34.0); Mean Corpuscular Hgb Conc 32.3 g/dL (32.0-36.0); Mean Corpuscular Volume 92.2 fL (80.0-100.0); Platelet Count 366 K/uL (130-400); RDW Coefficient of Variation 14.8 % (11.5-14.5); RDW Standard Deviation 47.7 fL (36.4-46.3); Red Blood Count 3.19 M/uL (4.70-6.10)
[2024-03-05 09:50] LABS: BUN Creatinine Ratio 6.4 (10-20); Calcium 8.1 mg/dl (8.6-10.3); Creatinine Clr Calc Pharmacy 97.2 ml/min; Est GFR (African American) 116.7 ml/min; Est GFR (Non-African American) 100.7 ml/min; Magnesium 1.7 mg/dl (1.7-2.4); Phosphorus 2.2 mg/dl (2.5-4.9); Potassium 3.7 mmol/L (3.5-5.1)
[2024-03-05] MEDS: POT PHOSPHATE MONOBASIC W/ SOD TAB PO SCH (16:31)
--- NOTE | 2024-03-05 16:55 | Hospitalist Progress Note ---
Date of Service March 05, 2024 Assessment & Plan (1) Acute metabolic encephalopathy: Plan: This is a 88-year-old male with history of dementia, diabetes mellitus type 2, recent COVID-19 and pneumonia, recent periprosthetic fracture right hip surgical treated at [place], among other medical problems who was sent from [facility] rehab for hypernatremia and ongoing confusion Acute metabolic encephalopathy Likely multifactorial (hypernatremia, dementia, recent COVID-19 infection, delirium) --CT Head:No acute infarct or intracranial hemorrhage. Acute sphenoid sinusitis. Received IV fluids Continue delirium precautions Sodium levels improved to 138 Appetite slowly improving Currently off restraints Fall precautions, PT OT as able Dysphagia with aspiration Appreciate speech evaluation recommendations Empirically received IV antibiotics Plan for barium swallow study Aspiration precautions Electrolyte abnormalities Hypernatremia, hypokalemia, hypomagnesemia and hypophosphatemia Likely secondary to poor oral intake and dehydration Complicated by infection Monitor and replete electrolytes as needed Anemia-iron deficiency anemia Postop blood loss anemia-S[place] [facility] [place]Iron deficiency anemia contributing as well --S/P 1 unit PRBCs --Received IV iron -- Normal vitamin B12, folate levels -- Low iron levels -- No obvious bleeding issues -- Continue oral iron supplements Monitor CBC Recent COVID-19 infection --CXR:There are new patchy mild bibasilar airspace opacities suspicious for multifocal pneumonia. -- Normal procalcitonin -- Empirically on Rocephin, Doxy -- Saturating well on room air As per prior provider Deconditioning-history is taken from the daughter Deterioration of his mobility and overall medical status started to build up since he was transferred from [facility] following hip replacement to [facility] to continue physical therapy He has not been mobile and laying in bed most of the time at [facility] for the last 1 or 2 weeks He has not been drinking and eating enough Palliative care consulted to address goals of care (2) Acute hypernatremia: Plan: Acute hypernatremia: sodium 152 on presentation Likely from poor oral intake given his dementia and confusion. Received IV fluids Sodium levels improved Monitor (3) Pneumonia: Plan: As per prior provider: Multifocal Pneumonia/ acute sphenoid sinusitis: patient was diagnosed with COVID on 02/08 at [facility] and also received Ceftriaxone for 7 days for pneumonia. chest x-ray here shows multifocal pneumonia, unclear whether this is from his recent pneumonia versus a new one. He was started on ceftriaxone send doxycycline in the ED which we will continue for now - this will also cover the sinusitis. Will consult [employer]ANT MANAGER feli to see if he might be aspirating. Lactic acidosis has resolved. No more fever and or chills and remains hemodynamically stable Will continue current antibiotic-has been on intravenous ceftriaxone and doxycycline and will continue (4) Elevated troponin: Plan: Secondary to demand ischemia (5) Diabetes mellitus type 2 with complications: Plan: Last HbA1c 6.3 Continue insulin while hospitalized Monitor BGs (6) Dementia: Plan: Continue home medications (7) Hypothyroidism: Plan: Continue levothyroxine (8) Lab test positive for detection of COVID-19 virus: Plan: Management as above Plan :Other significant medical conditions are documented as below Severe malnutrition BMI of 16.6 As per prior provider: GOC discussion- discussed with son at bedside who is also POA along with the sisters. He is quite realistic. States he is DNR/DNI. He would like to continue IVF and antibiotics but he does not think he would want PEG tube or BIPAP or ICU transfer for pressors if it comes to that. DVT Px: Lovenox SQ CODE STATUS DNR/DNI Overall prognosis is poor Admission and Anticipated Discharge Date Admission Date: February 28, 2024 Subjective Patient is seen and examined at bedside Pleasantly confused Oriented to person, tries to follow simple commands No distress on exam Unable to obtain much history Appetite slowly improving Review of Systems Review of Systems: Other Physical Exam Physical Exam: Physical Exam: Vitals signs as noted above General Appearance: Thin, frail, elderly, chronically appearing, no apparent distress Head: normocephalic, Atraumatic Eyes: normal inspection, EOMI Neck: supple, Trachea midline Respiratory/Chest: Decreased breath sounds, CTA, No accessory muscle use Cardiovascular: S1, S2, No murmur Abdomen/GI:Soft, Non tender, Bowel sounds present Extremities/Musculoskeletal:normal inspection, no edema Neurologic/Psych:AAOX1, grossly no focal neurological deficits, +Pleasantly confused Skin: normal color, warm Results & Data Results & Data Vital Signs (Past 12 Hours) Vital Signs Temp Pulse Pulse Resp BP Pulse Ox O2 Del Method 03/05/24 15:57 36.7 C 88 17 127/79 92 Room Air 03/05/24 12:59 78 03/05/24 10:15 Room Air 03/05/24 10:12 36.4 C L 76 18 121/68 95 Room Air 03/05/24 10:11 78 03/05/24 07:21 36.5 C 80 18 156/79 H 95 Room Air Laboratory Results Short CBC 03/05/24 Range/Units 09:05 WBC 9.00 (4.8-10.8) K/ul Hgb 9.5 L (14.0-18.0) g/dl Hct 29.4 L (42.0-52.0) % Plt Count 366 (130-400) K/uL BMP 03/05/24 09:05 Sodium 138 Potassium 3.7 Chloride 104 Carbon Dioxide 28 BUN 3 L Creatinine 0.47 L Glucose 95 Calcium 8.1 L (3) Pneumonia Laterality: bilateral Lung location: unspecified part of lung Pneumonia type: due to unspecified organism Qualified Code(s): J18.9 - Pneumonia, unspecified organism (7) Hypothyroidism Hypothyroidism type: acquired Qualified Code(s): E03.9 - Hypothyroidism, unspecified
--- NOTE | 2024-03-05 17:14 | Communication Note ---
Date of Service: March 05, 2024 Updated patient's Daughter over the phone.
[2024-03-05] MEDS: ACETAMINOPHEN 325 MG TAB PO PRN (20:08)
[2024-03-06 07:08] LABS: Hematocrit (blood only) 30.5 % (42.0-52.0); Mean Corpuscular Hemoglobin 29.9 pg (25.0-34.0); Mean Corpuscular Hgb Conc 32.8 g/dL (32.0-36.0); Mean Corpuscular Volume 91.3 fL (80.0-100.0); Platelet Count 405 K/uL (130-400); RDW Coefficient of Variation 15.3 % (11.5-14.5); RDW Standard Deviation 48.2 fL (36.4-46.3); Red Blood Count 3.34 M/uL (4.70-6.10); White Blood Count 11.74 K/ul (4.8-10.8)
[2024-03-06 07:25] LABS: BUN Creatinine Ratio 12.8 (10-20); Calcium 8.5 mg/dl (8.6-10.3); Creatinine Clr Calc Pharmacy 89.7 ml/min; Est GFR (African American) 116.7 ml/min; Est GFR (Non-African American) 100.7 ml/min; Magnesium 1.6 mg/dl (1.7-2.4); Phosphorus 2.3 mg/dl (2.5-4.9); Potassium 3.6 mmol/L (3.5-5.1)
[2024-03-06] MEDS: MAGNESIUM SULFATE / D5W 1 GM/100 ML BAG IV ONE (09:11)
[2024-03-06] MEDS: AMPICILLIN/SULBACTAM SOD 3,000 MG in SODIUM CHLOR 0.9% MINI-B 100 ML IV SCH (12:16)
--- NOTE | 2024-03-06 13:32 | Fluoroscopy Report ---
MODIFIED BARIUM SWALLOW CLINICAL HISTORY: [facility] for aspiration COMPARISON STUDY: None. FLUOROSCOPY TIME: 55 seconds. Ka, r: 9.58 mGy. TECHNIQUE: A modified barium swallow was performed in conjunction with Speech Pathology. The patient ingested varying consistencies of barium containing material. Video fluoroscopy was performed. FINDINGS: Several episodes of tracheal aspiration were noted with thin liquids. No aspiration was christopher ntified with nectar thick liquids. There was no aspiration with pudding consistency. IMPRESSION: 1. Several episodes of tracheal aspiration with thin liquids. No aspiration with nectar thick liquids or pudding consistency. 2. Full recommendations by Speech pathology to follow. ACT 112: Negative or not required by law. Electronically signed by: Jace Molina M.D. 03/06/2024 1:31 PM
--- NOTE | 2024-03-06 13:55 | Hospitalist Progress Note ---
Date of Service March 06, 2024 Assessment & Plan (1) Acute metabolic encephalopathy: Plan: This is a 88-year-old male with history of dementia, diabetes mellitus type 2, recent COVID-19 and pneumonia, recent periprosthetic fracture right hip surgical treated at [place], among other medical problems who was sent from [facility] rehab for hypernatremia and ongoing confusion Acute metabolic encephalopathy Likely multifactorial (hypernatremia, dementia, recent COVID-19 infection, delirium) --CT Head:No acute infarct or intracranial hemorrhage. Acute sphenoid sinusitis. Continue delirium precautions Sodium levels improved to 137 Currently off restraints Fall precautions, PT OT as able Poor oral intake Will give gentle IV fluids today Dysphagia with aspiration --Video Swallow:Several episodes of tracheal aspiration with thin liquids. No aspiration with nectar thick liquids or pudding consistency. Appreciate speech evaluation recommendations On nectar thick pured diet Aspiration precautions Empirically on IV Unasyn Electrolyte abnormalities Hypernatremia, hypokalemia, hypomagnesemia and hypophosphatemia Likely secondary to poor oral intake and dehydration Complicated by infection Monitor and replete electrolytes as needed Anemia-iron deficiency anemia Postop blood loss anemia-S/P [place]IF right hip on 01/29/[place] [facility] [place]Iron deficiency anemia contributing as well --S/P 1 unit PRBCs --Received IV iron -- Normal vitamin B12, folate levels -- Low iron levels -- No obvious bleeding issues -- Continue oral iron supplements Monitor CBC Recent COVID-19 infection --CXR:There are new patchy mild bibasilar airspace opacities suspicious for multifocal pneumonia. -- Normal procalcitonin -- Empirically on Rocephin, Doxy>> changed to Unasyn -- Saturating well on room air As per prior provider Deconditioning-history is taken from the daughter Deterioration of his mobility and overall medical status started to build up since he was transferred from [facility] following hip replacement to [facility] to continue physical therapy He has not been mobile and laying in bed most of the time at [facility] for the last 1 or 2 weeks He has not been drinking and eating enough Palliative care consulted to address goals of care (2) Acute hypernatremia: Plan: Acute hypernatremia: sodium 152 on presentation Likely from poor oral intake given his dementia and confusion. Received IV fluids Sodium level 137 today Monitor (3) Pneumonia: Plan: As per prior provider: Multifocal Pneumonia/ acute sphenoid sinusitis: patient was diagnosed with COVID on 02/08 at [facility] and also received Ceftriaxone for 7 days for pneumonia. chest x-ray here shows multifocal pneumonia, unclear whether this is from his recent pneumonia versus a new one. He was started on ceftriaxone send doxycycline in the ED which we will continue for now - this will also cover the sinusitis. Will consult LOG GETTER eval to see if he might be aspirating. Lactic acidosis has resolved. No more fever and or chills and remains hemodynamically stable Was on IV Rocephin, doxycycline >> changed to Unasyn (4) Elevated troponin: Plan: Secondary to demand ischemia (5) Diabetes mellitus type 2 with complications: Plan: Last HbA1c 6.3 Continue insulin while hospitalized Monitor BGs (6) Dementia: Plan: Continue home medications (7) Hypothyroidism: Plan: Continue levothyroxine (8) Lab test positive for detection of COVID-19 virus: Plan: Management as above Plan :Other significant medical conditions are documented as below Severe malnutrition BMI of 16.6 As per prior provider: GOC discussion- discussed with son at bedside who is also POA along with the sisters. He is quite realistic. States he is DNR/DNI. He would like to continue IVF and antibiotics but he does not think he would want PEG tube or BIPAP or ICU transfer for pressors if it comes to that. DVT Px: Lovenox SQ CODE STATUS DNR/DNI Overall prognosis is poor Admission and Anticipated Discharge Date Admission Date: February 28, 2024 Subjective Patient is seen and examined at bedside Remains confused but oriented to person Poor appetite Drowsy during my encounter No distress on exam Noted mild leukocytosis Remains afebrile Had video swallow study today Review of Systems Review of Systems: All systems reviewed & are unremarkable except as noted in Subjective Physical Exam Physical Exam: Physical Exam: Vitals signs as noted above General Appearance: Thin, frail, elderly, chronically appearing, no apparent distress Head: normocephalic, Atraumatic Eyes: normal inspection, EOMI Neck: supple, Trachea midline Respiratory/Chest: Decreased breath sounds, CTA, No accessory muscle use Cardiovascular: S1, S2, No murmur Abdomen/GI:Soft, Non tender, Bowel sounds present Extremities/Musculoskeletal:normal inspection, no edema Neurologic/Psych:AAOX1, grossly no focal neurological deficits, +Pleasantly confused Skin: normal color, warm Results & Data Results & Data Vital Signs (Past 12 Hours) Vital Signs Temp Pulse Pulse Resp BP BP Pulse Ox 03/06/24 08:51 36.5 C 71 20 98/61 L 94 03/06/24 07:15 03/06/24 05:45 82 03/06/24 03:46 36.6 C 65 16 130/66 95 O2 Del Method 03/06/24 08:51 Room Air 03/06/24 07:15 Room Air 03/06/24 05:45 03/06/24 03:46 Room Air Laboratory Results Short CBC 03/06/24 Range/Units 06:45 WBC 11.74 H (4.8-10.8) K/ul Hgb 10.0 L (14.0-18.0) g/dl Hct 30.5 L (42.0-52.0) % Plt Count 405 H (130-400) K/uL BMP 03/06/24 06:45 Sodium 137 Potassium 3.6 Chloride 103 Carbon Dioxide 26 BUN 6 Creatinine 0.47 L Glucose 94 Calcium 8.5 L (3) Pneumonia Laterality: bilateral Lung location: unspecified part of lung Pneumonia type: due to unspecified organism Qualified Code(s): J18.9 - Pneumonia, unspecified organism (7) Hypothyroidism Hypothyroidism type: acquired Qualified Code(s): E03.9 - Hypothyroidism, unspecified
[2024-03-06] MEDS: NSS + 20MEQ KCL 20 MEQ/1,000 ML BAG IV ONE (14:26)
--- NOTE | 2024-03-06 19:06 | Palliative Care Consultation ---
Date of Consultation March 06, 2024 Assessment & Plan (1) Weakness generalized: (2) Confusion: (3) Aspiration into airway: Video swallow today with + Severe oropharyngeal dysphagia and significant amount of retention along the tongue base and throughout the oral cavity with all boluses which increased with viscosity. There was penetration and aspiration on thin liquids via cup sip. Pt was cued to cough to try and clear the airway when the aspiration occurred. He was unable to follow directions and unable to cough effectively. Therefore, the following is recommended: 1.Pureed diet IDDSI 4, mildly thick liquids IDDSI 2. (4) Dysphagia: see #3 above (5) Dementia: (6) Palliative care by specialist: (7) Discussion about advance care planning held with family member: ACP d/w with daughter, Rhiannon, the designated "spokesperson" for the family/phone number is [phone]. NO answer/no option to [facility]. Will reattempt on Saturday Plan As above Thank you for allowing us to participate in the ongoing care of this patient. Please page with any additional concerns. Kodi Clark DNP Director, Palliative Medicine History of Present Illness Reason for Consultation: [facility] Attending Physician: Abhishek Allen MD History of Present Illness Cuco is a 88yo male with worsening dementia, encephalopathy aspiration and declining PS Allergies Allergy/AdvReac Type Severity Reaction Status Date / Time bee venom protein (honey bee) Allergy Severe SWELLING Verified 02/28/24 16:03 OF NECK, DIFFICULTY BREATHING WITH MULTIPLE STINGS. ciprofloxacin Allergy Intermediate rash Verified 02/28/24 16:03 Home Medications Medication Instructions Recorded Confirmed Type memantine 5 mg tablet 5 mg PO BID 01/30/23 02/28/24 History lancets (Microlet Lancet) #300 ea 04/03/23 01/28/24 Rx blood sugar diagnostic (OneTouch #300 ea 04/05/23 01/28/24 Rx Verio test strips) blood-glucose meter (OneTouch #1 ea 04/05/23 01/28/24 Rx Verio Flex Meter) rosuvastatin 20 mg tablet 20 mg PO HS 11/20/23 02/28/24 History levothyroxine 50 mcg tablet 50 mcg PO DAILY 01/28/24 02/28/24 History acetaminophen 325 mg tablet 650 mg PO Q6H PRN PAIN/FEVER>100 02/28/24 02/28/24 History (Tylenol) cholecalciferol (vitamin D3) 50 50 mcg PO DAILY 02/28/24 02/28/24 History mcg (2,000 unit) capsule (Vitamin D3) enoxaparin 40 mg/0.4 mL 40 mg subcut DAILY 02/28/24 02/28/24 History subcutaneous syringe (Lovenox) haloperidol lactate 5 mg/mL 2.5 mg IM Q6H PRN BPSD 02/28/24 02/28/24 History injection solution melatonin 5 mg tablet 5 mg PO HS 02/28/24 02/28/24 History metformin 1,000 mg 24 hr 1,000 mg PO DAILY 02/28/24 02/28/24 History tablet,extended release (gastric reten.) quetiapine 25 mg tablet (Seroquel) 25 mg PO HS 02/28/24 02/28/24 History Patient History Medical History Pneumonia hx ~1970's Diabetes mellitus, type 2 NIDDM Surgical History History of cataract surgery right History of colonoscopy History of tonsillectomy History of carpal tunnel surgery of right wrist ulnar nerve transposition History of total right hip arthroplasty Hx of eye surgery right eye (2/2 central retinal vein occlusion) Family History Father Alzheimer disease Mother Lung cancer Grandfather (Maternal) Lung cancer Other No family history of adverse response to anesthesia Social History Smoking Status: Former smoker Tobacco Type: Cigarettes Second Hand Exposure: No; Do You Dip or Chew Tobacco: No; Tobacco Cessation Education Requested by Patient: No Hx Alcohol Use: Yes Alcohol type: beer Hx Substance Use: No Preferred Language: Czech Communication Ability: Impaired Communication Ability Comment: speaking, could read and write but no longer [employer] Required: No Beliefs That Will Affect Care: None Current Living Situation: Personal [facility] Facility [facility] Rehab Other Information That Helps Us Care for You: No Feels Safe at Home: Yes Assistive Devices: Walker Review of Systems Review of Systems: Unobtainable due to cognitive status Physical Exam Physical Exam: Limited exam pt not able to follow commands confused at baseline, hard of hearing? bitemp wasting frail appearing chronically ill intermittent bronchitic cough normal resp effort diminished breath sounds with basilar crackles [id number] abd soft, NTP gen weakness unable to follow commands not alert to self, place to time skin pale, diaphoretic Results & Data Vital Signs (Past 12 Hours) Vital Signs Temp Pulse Pulse Resp BP Pulse Ox O2 Del Method 03/06/24 15:31 36.8 C 70 20 96/61 L 95 Room Air 03/06/24 13:04 81 03/06/24 08:51 36.5 C 71 20 98/61 L 94 Room Air 03/06/24 07:15 Room Air Laboratory Results 03/06/24 03/06/24 03/06/24 Range/Units 17:32 17:07 17:06 WBC (4.8-10.8) K/ul RBC (4.70-6.10) M/uL Hgb (14.0-18.0) g/dl Hct (42.0-52.0) % MCV (80.0-100.0) fL MCH (25.0-34.0) pg MCHC (32.0-36.0) g/dL RDW Std Deviation (36.4-46.3) fL RDW Coeff of Baldo (11.5-14.5) % Plt Count (130-400) K/uL MPV (9.4-12.4) fL Immature Gran % (Auto) % Neut % (Auto) % Lymph % (Auto) % Cache % (Auto) % Eos % (Auto) % Baso % (Auto) % Neut # (Auto) (1.40-6.50) K/uL Lymph # (Auto) (1.20-3.40) K/uL Cache # (Auto) (0.11-0.59) K/uL Eos # (Auto) (0.00-0.50) K/uL Baso # (Auto) (0.00-0.20) K/uL Immature Gran # (Auto) (0.01-0.20) K/uL RBC Morphology Polychromasia Sodium (136-145) mmol/L Potassium (3.5-5.1) mmol/L Chloride (98-107) mmol/L Carbon Dioxide (21-32) mmol/L Anion Gap (3-11) BUN (6-23) mg/dl Creatinine (0.6-1.4) mg/dl Est Cr Clr Drug Dosing ml/min Est GFR ( Amer) ml/min Est GFR (Non-Af Amer) ml/min BUN/Creatinine Ratio (10-20) Glucose (70-99(Fasting)) mg/dl POC Glucose 107 H 63 L* 61 L* (70-99) mg/dl Calcium (8.6-10.3) mg/dl Phosphorus (2.5-4.9) mg/dl Magnesium (1.7-2.4) mg/dl Iron (35-175) mcg/dl Unsaturated IBC (155-355) mcg/dl Ferritin (8-388) ng/ml Troponin I High Sens (0-20) pg/ml Vitamin B12 (180-914) pg/ml Folate (>5.38) ng/ml Procalcitonin (0-0.5) ng/ml Nasal Screen MRSA (PCR) (Negative) Blood Type Blood Type Recheck Antibody Screen Crossmatch 03/06/24 03/06/24 03/06/24 Range/Units 12:02 07:58 06:45 WBC 11.74 H (4.8-10.8) K/ul RBC 3.34 L (4.70-6.10) M/uL Hgb 10.0 L (14.0-18.0) g/dl Hct 30.5 L (42.0-52.0) % MCV 91.3 (80.0-100.0) fL MCH 29.9 (25.0-34.0) pg MCHC 32.8 (32.0-36.0) g/dL RDW Std Deviation 48.2 H (36.4-46.3) fL RDW Coeff of Baldo 15.3 H (11.5-14.5) % Plt Count 405 H (130-400) K/uL MPV 9.0 L (9.4-12.4) fL Immature Gran % (Auto) % Neut % (Auto) % Lymph % (Auto) % Cache % (Auto) % Eos % (Auto) % Baso % (Auto) % Neut # (Auto) (1.40-6.50) K/uL Lymph # (Auto) (1.20-3.40) K/uL Cache # (Auto) (0.11-0.59) K/uL Eos # (Auto) (0.00-0.50) K/uL Baso # (Auto) (0.00-0.20) K/uL Immature Gran # (Auto) (0.01-0.20) K/uL RBC Morphology Polychromasia Sodium 137 (136-145) mmol/L Potassium 3.6 (3.5-5.1) mmol/L Chloride 103 (98-107) mmol/L Carbon Dioxide 26 (21-32) mmol/L Anion Gap 8 (3-11) BUN 6 (6-23) mg/dl Creatinine 0.47 L (0.6-1.4) mg/dl Est Cr Clr Drug Dosing 89.7 ml/min Est GFR ( Amer) 116.7 ml/min Est GFR (Non-Af Amer) 100.7 ml/min BUN/Creatinine Ratio 12.8 (10-20) Glucose 94 (70-99(Fasting)) mg/dl POC Glucose 96 83 (70-99) mg/dl Calcium 8.5 L (8.6-10.3) mg/dl Phosphorus 2.3 L (2.5-4.9) mg/dl Magnesium 1.6 L (1.7-2.4) mg/dl Iron (35-175) mcg/dl Unsaturated IBC (155-355) mcg/dl Ferritin (8-388) ng/ml Troponin I High Sens (0-20) pg/ml Vitamin B12 (180-914) pg/ml Folate (>5.38) ng/ml Procalcitonin (0-0.5) ng/ml Nasal Screen MRSA (PCR) (Negative) Blood Type Blood Type Recheck Antibody Screen Crossmatch 03/05/24 03/05/24 03/05/24 Range/Units 20:03 17:08 12:13 WBC (4.8-10.8) K/ul RBC (4.70-6.10) M/uL Hgb (14.0-18.0) g/dl Hct (42.0-52.0) % MCV (80.0-100.0) fL MCH (25.0-34.0) pg MCHC (32.0-36.0) g/dL RDW Std Deviation (36.4-46.3) fL RDW Coeff of Baldo (11.5-14.5) % Plt Count (130-400) K/uL MPV (9.4-12.4) fL Immature Gran % (Auto) % Neut % (Auto) % Lymph % (Auto) % Cache % (Auto) % Eos % (Auto) % Baso % (Auto) % Neut # (Auto) (1.40-6.50) K/uL Lymph # (Auto) (1.20-3.40) K/uL Cache # (Auto) (0.11-0.59) K/uL Eos # (Auto) (0.00-0.50) K/uL Baso # (Auto) (0.00-0.20) K/uL Immature Gran # (Auto) (0.01-0.20) K/uL RBC Morphology Polychromasia Sodium (136-145) mmol/L Potassium (3.5-5.1) mmol/L Chloride (98-107) mmol/L Carbon Dioxide (21-32) mmol/L Anion Gap (3-11) BUN (6-23) mg/dl Creatinine (0.6-1.4) mg/dl Est Cr Clr Drug Dosing ml/min Est GFR ( Amer) ml/min Est GFR (Non-Af Amer) ml/min BUN/Creatinine Ratio (10-20) Glucose (70-99(Fasting)) mg/dl POC Glucose 108 H 113 H 103 H (70-99) mg/dl Calcium (8.6-10.3) mg/dl Phosphorus (2.5-4.9) mg/dl Magnesium (1.7-2.4) mg/dl Iron (35-175) mcg/dl Unsaturated IBC (155-355) mcg/dl Ferritin (8-388) ng/ml Troponin I High Sens (0-20) pg/ml Vitamin B12 (180-914) pg/ml Folate (>5.38) ng/ml Procalcitonin (0-0.5) ng/ml Nasal Screen MRSA (PCR) (Negative) Blood Type Blood Type Recheck Antibody Screen Crossmatch 03/05/24 03/05/24 03/04/24 Range/Units 09:05 07:19 20:14 WBC 9.00 (4.8-10.8) K/ul RBC 3.19 L (4.70-6.10) M/uL Hgb 9.5 L (14.0-18.0) g/dl Hct 29.4 L (42.0-52.0) % MCV 92.2 (80.0-100.0) fL MCH 29.8 (25.0-34.0) pg MCHC 32.3 (32.0-36.0) g/dL RDW Std Deviation 47.7 H (36.4-46.3) fL RDW Coeff of Baldo 14.8 H (11.5-14.5) % Plt Count 366 (130-400) K/uL MPV 9.0 L (9.4-12.4) fL Immature Gran % (Auto) % Neut % (Auto) % Lymph % (Auto) % Cache % (Auto) % Eos % (Auto) % Baso % (Auto) % Neut # (Auto) (1.40-6.50) K/uL Lymph # (Auto) (1.20-3.40) K/uL Cache # (Auto) (0.11-0.59) K/uL Eos # (Auto) (0.00-0.50) K/uL Baso # (Auto) (0.00-0.20) K/uL Immature Gran # (Auto) (0.01-0.20) K/uL RBC Morphology Polychromasia Sodium 138 (136-145) mmol/L Potassium 3.7 (3.5-5.1) mmol/L Chloride 104 (98-107) mmol/L Carbon Dioxide 28 (21-32) mmol/L Anion Gap 6 (3-11) BUN 3 L (6-23) mg/dl Creatinine 0.47 L (0.6-1.4) mg/dl Est Cr Clr Drug Dosing 97.2 ml/min Est GFR ( Amer) 116.7 ml/min Est GFR (Non-Af Amer) 100.7 ml/min BUN/Creatinine Ratio 6.4 L (10-20) Glucose 95 (70-99(Fasting)) mg/dl POC Glucose 105 H 96 (70-99) mg/dl Calcium 8.1 L (8.6-10.3) mg/dl Phosphorus 2.2 L (2.5-4.9) mg/dl Magnesium 1.7 (1.7-2.4) mg/dl Iron (35-175) mcg/dl Unsaturated IBC (155-355) mcg/dl Ferritin (8-388) ng/ml Troponin I High Sens (0-20) pg/ml Vitamin B12 (180-914) pg/ml Folate (>5.38) ng/ml Procalcitonin 0.06 (0-0.5) ng/ml Nasal Screen MRSA (PCR) (Negative) Blood Type Blood Type Recheck Antibody Screen Crossmatch 03/04/24 03/04/24 03/04/24 Range/Units 16:07 10:59 09:25 WBC (4.8-10.8) K/ul RBC (4.70-6.10) M/uL Hgb (14.0-18.0) g/dl Hct (42.0-52.0) % MCV (80.0-100.0) fL MCH (25.0-34.0) pg MCHC (32.0-36.0) g/dL RDW Std Deviation (36.4-46.3) fL RDW Coeff of Baldo (11.5-14.5) % Plt Count (130-400) K/uL MPV (9.4-12.4) fL Immature Gran % (Auto) % Neut % (Auto) % Lymph % (Auto) % Cache % (Auto) % Eos % (Auto) % Baso % (Auto) % Neut # (Auto) (1.40-6.50) K/uL Lymph # (Auto) (1.20-3.40) K/uL Cache # (Auto) (0.11-0.59) K/uL Eos # (Auto) (0.00-0.50) K/uL Baso # (Auto) (0.00-0.20) K/uL Immature Gran # (Auto) (0.01-0.20) K/uL RBC Morphology Polychromasia Sodium (136-145) mmol/L Potassium (3.5-5.1) mmol/L Chloride (98-107) mmol/L Carbon Dioxide (21-32) mmol/L Anion Gap (3-11) BUN (6-23) mg/dl Creatinine (0.6-1.4) mg/dl Est Cr Clr Drug Dosing ml/min Est GFR ( Amer) ml/min Est GFR (Non-Af Amer) ml/min BUN/Creatinine Ratio (10-20) Glucose (70-99(Fasting)) mg/dl POC Glucose 102 H 126 H (70-99) mg/dl Calcium (8.6-10.3) mg/dl Phosphorus (2.5-4.9) mg/dl Magnesium (1.7-2.4) mg/dl Iron (35-175) mcg/dl Unsaturated IBC (155-355) mcg/dl Ferritin (8-388) ng/ml Troponin I High Sens (0-20) pg/ml Vitamin B12 (180-914) pg/ml Folate (>5.38) ng/ml Procalcitonin (0-0.5) ng/ml Nasal Screen MRSA (PCR) (Negative) Blood Type Blood Type Recheck A Positive Antibody Screen Crossmatch 03/04/24 03/04/24 03/04/24 Range/Units 08:17 07:09 06:45 WBC 9.02 (4.8-10.8) K/ul RBC 2.35 L (4.70-6.10) M/uL Hgb 6.8 L* (14.0-18.0) g/dl Hct 21.7 L (42.0-52.0) % MCV 92.3 (80.0-100.0) fL MCH 28.9 (25.0-34.0) pg MCHC 31.3 L (32.0-36.0) g/dL RDW Std Deviation 49.1 H (36.4-46.3) fL RDW Coeff of Baldo 15.1 H (11.5-14.5) % Plt Count 318 (130-400) K/uL MPV 9.2 L (9.4-12.4) fL Immature Gran % (Auto) 0.8 % Neut % (Auto) 65.8 % Lymph % (Auto) 21.3 % Cache % (Auto) 8.1 % Eos % (Auto) 3.8 % Baso % (Auto) 0.2 % Neut # (Auto) 5.94 (1.40-6.50) K/uL Lymph # (Auto) 1.92 (1.20-3.40) K/uL Cache # (Auto) 0.73 H (0.11-0.59) K/uL Eos # (Auto) 0.34 (0.00-0.50) K/uL Baso # (Auto) 0.02 (0.00-0.20) K/uL Immature Gran # (Auto) 0.07 (0.01-0.20) K/uL RBC Morphology Unremarkable Polychromasia Sodium 139 (136-145) mmol/L Potassium 3.5 D (3.5-5.1) mmol/L Chloride 109 H (98-107) mmol/L Carbon Dioxide 25 (21-32) mmol/L Anion Gap 5 (3-11) BUN 3 L (6-23) mg/dl Creatinine 0.45 L (0.6-1.4) mg/dl Est Cr Clr Drug Dosing 89.8 ml/min Est GFR ( Amer) 118.8 ml/min Est GFR (Non-Af Amer) 102.5 ml/min BUN/Creatinine Ratio 6.7 L (10-20) Glucose 117 H (70-99(Fasting)) mg/dl POC Glucose 126 H (70-99) mg/dl Calcium 7.4 L (8.6-10.3) mg/dl Phosphorus 2.0 L (2.5-4.9) mg/dl Magnesium 1.5 L (1.7-2.4) mg/dl Iron (35-175) mcg/dl Unsaturated IBC (155-355) mcg/dl Ferritin (8-388) ng/ml Troponin I High Sens (0-20) pg/ml Vitamin B12 (180-914) pg/ml Folate (>5.38) ng/ml Procalcitonin (0-0.5) ng/ml Nasal Screen MRSA (PCR) (Negative) Blood Type A Positive Blood Type Recheck Antibody Screen NEGATIVE Crossmatch See Detail 03/03/24 03/03/24 03/03/24 Range/Units 20:10 16:03 11:12 WBC (4.8-10.8) K/ul RBC (4.70-6.10) M/uL Hgb (14.0-18.0) g/dl Hct (42.0-52.0) % MCV (80.0-100.0) fL MCH (25.0-34.0) pg MCHC (32.0-36.0) g/dL RDW Std Deviation (36.4-46.3) fL RDW Coeff of Baldo (11.5-14.5) % Plt Count (130-400) K/uL MPV (9.4-12.4) fL Immature Gran % (Auto) % Neut % (Auto) % Lymph % (Auto) % Cache % (Auto) % Eos % (Auto) % Baso % (Auto) % Neut # (Auto) (1.40-6.50) K/uL Lymph # (Auto) (1.20-3.40) K/uL Cache # (Auto) (0.11-0.59) K/uL Eos # (Auto) (0.00-0.50) K/uL Baso # (Auto) (0.00-0.20) K/uL Immature Gran # (Auto) (0.01-0.20) K/uL RBC Morphology Polychromasia Sodium (136-145) mmol/L Potassium (3.5-5.1) mmol/L Chloride (98-107) mmol/L Carbon Dioxide (21-32) mmol/L Anion Gap (3-11) BUN (6-23) mg/dl Creatinine (0.6-1.4) mg/dl Est Cr Clr Drug Dosing ml/min Est GFR ( Amer) ml/min Est GFR (Non-Af Amer) ml/min BUN/Creatinine Ratio (10-20) Glucose (70-99(Fasting)) mg/dl POC Glucose 118 H 125 H 110 H (70-99) mg/dl Calcium (8.6-10.3) mg/dl Phosphorus (2.5-4.9) mg/dl Magnesium (1.7-2.4) mg/dl Iron (35-175) mcg/dl Unsaturated IBC (155-355) mcg/dl Ferritin (8-388) ng/ml Troponin I High Sens (0-20) pg/ml Vitamin B12 (180-914) pg/ml Folate (>5.38) ng/ml Procalcitonin (0-0.5) ng/ml Nasal Screen MRSA (PCR) (Negative) Blood Type Blood Type Recheck Antibody Screen Crossmatch 03/03/24 03/03/24 03/03/24 Range/Units 06:38 06:18 00:18 WBC 8.83 (4.8-10.8) K/ul RBC 2.60 L (4.70-6.10) M/uL Hgb 7.6 L (14.0-18.0) g/dl Hct 24.1 L (42.0-52.0) % MCV 92.7 (80.0-100.0) fL MCH 29.2 (25.0-34.0) pg MCHC 31.5 L (32.0-36.0) g/dL RDW Std Deviation 49.6 H (36.4-46.3) fL RDW Coeff of Baldo 14.9 H (11.5-14.5) % Plt Count 389 (130-400) K/uL MPV 9.3 L (9.4-12.4) fL Immature Gran % (Auto) 1.0 % Neut % (Auto) 67.4 % Lymph % (Auto) 20.0 % Cache % (Auto) 7.1 % Eos % (Auto) 3.9 % Baso % (Auto) 0.6 % Neut # (Auto) 5.95 (1.40-6.50) K/uL Lymph # (Auto) 1.77 (1.20-3.40) K/uL Cache # (Auto) 0.63 H (0.11-0.59) K/uL Eos # (Auto) 0.34 (0.00-0.50) K/uL Baso # (Auto) 0.05 (0.00-0.20) K/uL Immature Gran # (Auto) 0.09 (0.01-0.20) K/uL RBC Morphology Polychromasia 1+ Sodium 140 (136-145) mmol/L Potassium 4.5 D (3.5-5.1) mmol/L Chloride 108 H (98-107) mmol/L Carbon Dioxide 26 (21-32) mmol/L Anion Gap 6 (3-11) BUN 5 L (6-23) mg/dl Creatinine 0.47 L (0.6-1.4) mg/dl Est Cr Clr Drug Dosing 86.0 ml/min Est GFR ( Amer) 116.7 ml/min Est GFR (Non-Af Amer) 100.7 ml/min BUN/Creatinine Ratio 10.6 (10-20) Glucose 91 (70-99(Fasting)) mg/dl POC Glucose 120 H 108 H (70-99) mg/dl Calcium 8.1 L (8.6-10.3) mg/dl Phosphorus 2.0 L (2.5-4.9) mg/dl Magnesium 1.5 L (1.7-2.4) mg/dl Iron (35-175) mcg/dl Unsaturated IBC (155-355) mcg/dl Ferritin (8-388) ng/ml Troponin I High Sens (0-20) pg/ml Vitamin B12 (180-914) pg/ml Folate (>5.38) ng/ml Procalcitonin (0-0.5) ng/ml Nasal Screen MRSA (PCR) (Negative) Blood Type Blood Type Recheck Antibody Screen Crossmatch 03/02/24 03/02/24 03/02/24 Range/Units 20:10 17:49 14:27 WBC (4.8-10.8) K/ul RBC (4.70-6.10) M/uL Hgb (14.0-18.0) g/dl Hct (42.0-52.0) % MCV (80.0-100.0) fL MCH (25.0-34.0) pg MCHC (32.0-36.0) g/dL RDW Std Deviation (36.4-46.3) fL RDW Coeff of Baldo (11.5-14.5) % Plt Count (130-400) K/uL MPV (9.4-12.4) fL Immature Gran % (Auto) % Neut % (Auto) % Lymph % (Auto) % Cache % (Auto) % Eos % (Auto) % Baso % (Auto) % Neut # (Auto) (1.40-6.50) K/uL Lymph # (Auto) (1.20-3.40) K/uL Cache # (Auto) (0.11-0.59) K/uL Eos # (Auto) (0.00-0.50) K/uL Baso # (Auto) (0.00-0.20) K/uL Immature Gran # (Auto) (0.01-0.20) K/uL RBC Morphology Polychromasia Sodium (136-145) mmol/L Potassium (3.5-5.1) mmol/L Chloride (98-107) mmol/L Carbon Dioxide (21-32) mmol/L Anion Gap (3-11) BUN (6-23) mg/dl Creatinine (0.6-1.4) mg/dl Est Cr Clr Drug Dosing ml/min Est GFR ( Amer) ml/min Est GFR (Non-Af Amer) ml/min BUN/Creatinine Ratio (10-20) Glucose (70-99(Fasting)) mg/dl POC Glucose 106 H 103 H 85 (70-99) mg/dl Calcium (8.6-10.3) mg/dl Phosphorus (2.5-4.9) mg/dl Magnesium (1.7-2.4) mg/dl Iron (35-175) mcg/dl Unsaturated IBC (155-355) mcg/dl Ferritin (8-388) ng/ml Troponin I High Sens (0-20) pg/ml Vitamin B12 (180-914) pg/ml Folate (>5.38) ng/ml Procalcitonin (0-0.5) ng/ml Nasal Screen MRSA (PCR) (Negative) Blood Type Blood Type Recheck Antibody Screen Crossmatch 03/02/24 03/02/24 03/02/24 Range/Units 11:16 08:16 06:49 WBC (4.8-10.8) K/ul RBC (4.70-6.10) M/uL Hgb (14.0-18.0) g/dl Hct (42.0-52.0) % MCV (80.0-100.0) fL MCH (25.0-34.0) pg MCHC (32.0-36.0) g/dL RDW Std Deviation (36.4-46.3) fL RDW Coeff of Baldo (11.5-14.5) % Plt Count (130-400) K/uL MPV (9.4-12.4) fL Immature Gran % (Auto) % Neut % (Auto) % Lymph % (Auto) % Cache % (Auto) % Eos % (Auto) % Baso % (Auto) % Neut # (Auto) (1.40-6.50) K/uL Lymph # (Auto) (1.20-3.40) K/uL Cache # (Auto) (0.11-0.59) K/uL Eos # (Auto) (0.00-0.50) K/uL Baso # (Auto) (0.00-0.20) K/uL Immature Gran # (Auto) (0.01-0.20) K/uL RBC Morphology Polychromasia Sodium (136-145) mmol/L Potassium (3.5-5.1) mmol/L Chloride (98-107) mmol/L Carbon Dioxide (21-32) mmol/L Anion Gap (3-11) BUN (6-23) mg/dl Creatinine (0.6-1.4) mg/dl Est Cr Clr Drug Dosing ml/min Est GFR ( Amer) ml/min Est GFR (Non-Af Amer) ml/min BUN/Creatinine Ratio (10-20) Glucose (70-99(Fasting)) mg/dl POC Glucose 85 111 H 161 H (70-99) mg/dl Calcium (8.6-10.3) mg/dl Phosphorus (2.5-4.9) mg/dl Magnesium (1.7-2.4) mg/dl Iron (35-175) mcg/dl Unsaturated IBC (155-355) mcg/dl Ferritin (8-388) ng/ml Troponin I High Sens (0-20) pg/ml Vitamin B12 (180-914) pg/ml Folate (>5.38) ng/ml Procalcitonin (0-0.5) ng/ml Nasal Screen MRSA (PCR) (Negative) Blood Type Blood Type Recheck Antibody Screen Crossmatch 03/02/24 03/02/24 03/01/24 Range/Units 06:35 05:41 21:05 WBC 9.32 (4.8-10.8) K/ul RBC 2.56 L (4.70-6.10) M/uL Hgb 7.4 L (14.0-18.0) g/dl Hct 23.7 L (42.0-52.0) % MCV 92.6 (80.0-100.0) fL MCH 28.9 (25.0-34.0) pg MCHC 31.2 L (32.0-36.0) g/dL RDW Std Deviation 50.0 H (36.4-46.3) fL RDW Coeff of Baldo 15.0 H (11.5-14.5) % Plt Count 404 H (130-400) K/uL MPV 9.1 L (9.4-12.4) fL Immature Gran % (Auto) 0.8 % Neut % (Auto) 66.6 % Lymph % (Auto) 22.2 % Cache % (Auto) 6.8 % Eos % (Auto) 3.3 % Baso % (Auto) 0.3 % Neut # (Auto) 6.21 (1.40-6.50) K/uL Lymph # (Auto) 2.07 (1.20-3.40) K/uL Cache # (Auto) 0.63 H (0.11-0.59) K/uL Eos # (Auto) 0.31 (0.00-0.50) K/uL Baso # (Auto) 0.03 (0.00-0.20) K/uL Immature Gran # (Auto) 0.07 (0.01-0.20) K/uL RBC Morphology Unremarkable Polychromasia Sodium 142 (136-145) mmol/L Potassium 3.6 (3.5-5.1) mmol/L Chloride 109 H (98-107) mmol/L Carbon Dioxide 28 (21-32) mmol/L Anion Gap 5 (3-11) BUN 7 (6-23) mg/dl Creatinine 0.51 L (0.6-1.4) mg/dl Est Cr Clr Drug Dosing 79.3 ml/min Est GFR ( Amer) 112.8 ml/min Est GFR (Non-Af Amer) 97.3 ml/min BUN/Creatinine Ratio 13.7 (10-20) Glucose 64 L (70-99(Fasting)) mg/dl POC Glucose 68 L* 88 (70-99) mg/dl Calcium 8.0 L (8.6-10.3) mg/dl Phosphorus 2.8 (2.5-4.9) mg/dl Magnesium 1.6 L (1.7-2.4) mg/dl Iron (35-175) mcg/dl Unsaturated IBC (155-355) mcg/dl Ferritin (8-388) ng/ml Troponin I High Sens (0-20) pg/ml Vitamin B12 (180-914) pg/ml Folate (>5.38) ng/ml Procalcitonin (0-0.5) ng/ml Nasal Screen MRSA (PCR) (Negative) Blood Type Blood Type Recheck Antibody Screen Crossmatch 03/01/24 03/01/24 03/01/24 Range/Units 16:08 11:19 07:21 WBC (4.8-10.8) K/ul RBC (4.70-6.10) M/uL Hgb (14.0-18.0) g/dl Hct (42.0-52.0) % MCV (80.0-100.0) fL MCH (25.0-34.0) pg MCHC (32.0-36.0) g/dL RDW Std Deviation (36.4-46.3) fL RDW Coeff of Baldo (11.5-14.5) % Plt Count (130-400) K/uL MPV (9.4-12.4) fL Immature Gran % (Auto) % Neut % (Auto) % Lymph % (Auto) % Cache % (Auto) % Eos % (Auto) % Baso % (Auto) % Neut # (Auto) (1.40-6.50) K/uL Lymph # (Auto) (1.20-3.40) K/uL Cache # (Auto) (0.11-0.59) K/uL Eos # (Auto) (0.00-0.50) K/uL Baso # (Auto) (0.00-0.20) K/uL Immature Gran # (Auto) (0.01-0.20) K/uL RBC Morphology Polychromasia Sodium (136-145) mmol/L Potassium (3.5-5.1) mmol/L Chloride (98-107) mmol/L Carbon Dioxide (21-32) mmol/L Anion Gap (3-11) BUN (6-23) mg/dl Creatinine (0.6-1.4) mg/dl Est Cr Clr Drug Dosing ml/min Est GFR ( Amer) ml/min Est GFR (Non-Af Amer) ml/min BUN/Creatinine Ratio (10-20) Glucose (70-99(Fasting)) mg/dl POC Glucose 82 103 H 97 (70-99) mg/dl Calcium (8.6-10.3) mg/dl Phosphorus (2.5-4.9) mg/dl Magnesium (1.7-2.4) mg/dl Iron (35-175) mcg/dl Unsaturated IBC (155-355) mcg/dl Ferritin (8-388) ng/ml Troponin I High Sens (0-20) pg/ml Vitamin B12 (180-914) pg/ml Folate (>5.38) ng/ml Procalcitonin (0-0.5) ng/ml Nasal Screen MRSA (PCR) (Negative) Blood Type Blood Type Recheck Antibody Screen Crossmatch 03/01/24 02/29/24 02/29/24 Range/Units 06:39 20:46 16:24 WBC 8.98 (4.8-10.8) K/ul RBC 2.59 L (4.70-6.10) M/uL Hgb 7.5 L (14.0-18.0) g/dl Hct 24.6 L (42.0-52.0) % MCV 95.0 (80.0-100.0) fL MCH 29.0 (25.0-34.0) pg MCHC 30.5 L (32.0-36.0) g/dL RDW Std Deviation 52.1 H (36.4-46.3) fL RDW Coeff of Baldo 15.0 H (11.5-14.5) % Plt Count 421 H (130-400) K/uL MPV 9.1 L (9.4-12.4) fL Immature Gran % (Auto) 0.8 % Neut % (Auto) 65.2 % Lymph % (Auto) 22.9 % Cache % (Auto) 7.2 % Eos % (Auto) 3.6 % Baso % (Auto) 0.3 % Neut # (Auto) 5.85 (1.40-6.50) K/uL Lymph # (Auto) 2.06 (1.20-3.40) K/uL Cache # (Auto) 0.65 H (0.11-0.59) K/uL Eos # (Auto) 0.32 (0.00-0.50) K/uL Baso # (Auto) 0.03 (0.00-0.20) K/uL Immature Gran # (Auto) 0.07 (0.01-0.20) K/uL RBC Morphology Unremarkable Polychromasia Sodium 144 (136-145) mmol/L Potassium 3.5 (3.5-5.1) mmol/L Chloride 113 H (98-107) mmol/L Carbon Dioxide 26 (21-32) mmol/L Anion Gap 5 (3-11) BUN 7 (6-23) mg/dl Creatinine 0.47 L (0.6-1.4) mg/dl Est Cr Clr Drug Dosing 86.0 ml/min Est GFR ( Amer) 116.7 ml/min Est GFR (Non-Af Amer) 100.7 ml/min BUN/Creatinine Ratio 14.9 (10-20) Glucose 99 (70-99(Fasting)) mg/dl POC Glucose 86 97 (70-99) mg/dl Calcium 7.9 L (8.6-10.3) mg/dl Phosphorus 2.6 (2.5-4.9) mg/dl Magnesium 1.7 (1.7-2.4) mg/dl Iron (35-175) mcg/dl Unsaturated IBC (155-355) mcg/dl Ferritin (8-388) ng/ml Troponin I High Sens (0-20) pg/ml Vitamin B12 (180-914) pg/ml Folate (>5.38) ng/ml Procalcitonin (0-0.5) ng/ml Nasal Screen MRSA (PCR) (Negative) Blood Type Blood Type Recheck Antibody Screen Crossmatch 02/29/24 02/29/24 02/29/24 Range/Units 11:22 09:56 07:32 WBC 10.21 (4.8-10.8) K/ul RBC 2.29 L (4.70-6.10) M/uL Hgb 7.0 L 6.6 L* (14.0-18.0) g/dl Hct 23.1 L 21.9 L (42.0-52.0) % MCV 95.6 (80.0-100.0) fL MCH 28.8 (25.0-34.0) pg MCHC 30.1 L (32.0-36.0) g/dL RDW Std Deviation 52.9 H (36.4-46.3) fL RDW Coeff of Baldo 15.4 H (11.5-14.5) % Plt Count 426 H (130-400) K/uL MPV 9.1 L (9.4-12.4) fL Immature Gran % (Auto) % Neut % (Auto) % Lymph % (Auto) % Cache % (Auto) % Eos % (Auto) % Baso % (Auto) % Neut # (Auto) (1.40-6.50) K/uL Lymph # (Auto) (1.20-3.40) K/uL Cache # (Auto) (0.11-0.59) K/uL Eos # (Auto) (0.00-0.50) K/uL Baso # (Auto) (0.00-0.20) K/uL Immature Gran # (Auto) (0.01-0.20) K/uL RBC Morphology Polychromasia Sodium 148 H (136-145) mmol/L Potassium 3.1 L (3.5-5.1) mmol/L Chloride 116 H (98-107) mmol/L Carbon Dioxide 26 (21-32) mmol/L Anion Gap 6 (3-11) BUN 15 (6-23) mg/dl Creatinine 0.57 L (0.6-1.4) mg/dl Est Cr Clr Drug Dosing 70.9 ml/min Est GFR ( Amer) 107.8 ml/min Est GFR (Non-Af Amer) 93.0 ml/min BUN/Creatinine Ratio 26.3 H (10-20) Glucose 119 H (70-99(Fasting)) mg/dl POC Glucose 126 H (70-99) mg/dl Calcium 7.5 L (8.6-10.3) mg/dl Phosphorus 2.1 L (2.5-4.9) mg/dl Magnesium 1.5 L (1.7-2.4) mg/dl Iron 23 L (35-175) mcg/dl Unsaturated IBC 103 L (155-355) mcg/dl Ferritin 449.5 H (8-388) ng/ml Troponin I High Sens 37.4 H (0-20) pg/ml Vitamin B12 474 (180-914) pg/ml Folate 5.67 (>5.38) ng/ml Procalcitonin (0-0.5) ng/ml Nasal Screen MRSA (PCR) (Negative) Blood Type Blood Type Recheck Antibody Screen Crossmatch 02/29/24 02/29/24 02/29/24 Range/Units 07:18 03:00 00:21 WBC (4.8-10.8) K/ul RBC (4.70-6.10) M/uL Hgb (14.0-18.0) g/dl Hct (42.0-52.0) % MCV (80.0-100.0) fL MCH (25.0-34.0) pg MCHC (32.0-36.0) g/dL RDW Std Deviation (36.4-46.3) fL RDW Coeff of Baldo (11.5-14.5) % Plt Count (130-400) K/uL MPV (9.4-12.4) fL Immature Gran % (Auto) % Neut % (Auto) % Lymph % (Auto) % Cache % (Auto) % Eos % (Auto) % Baso % (Auto) % Neut # (Auto) (1.40-6.50) K/uL Lymph # (Auto) (1.20-3.40) K/uL Cache # (Auto) (0.11-0.59) K/uL Eos # (Auto) (0.00-0.50) K/uL Baso # (Auto) (0.00-0.20) K/uL Immature Gran # (Auto) (0.01-0.20) K/uL RBC Morphology Polychromasia Sodium (136-145) mmol/L Potassium (3.5-5.1) mmol/L Chloride (98-107) mmol/L Carbon Dioxide (21-32) mmol/L Anion Gap (3-11) BUN (6-23) mg/dl Creatinine (0.6-1.4) mg/dl Est Cr Clr Drug Dosing ml/min Est GFR ( Amer) ml/min Est GFR (Non-Af Amer) ml/min BUN/Creatinine Ratio (10-20) Glucose (70-99(Fasting)) mg/dl POC Glucose 137 H (70-99) mg/dl Calcium (8.6-10.3) mg/dl Phosphorus (2.5-4.9) mg/dl Magnesium (1.7-2.4) mg/dl Iron (35-175) mcg/dl Unsaturated IBC (155-355) mcg/dl Ferritin (8-388) ng/ml Troponin I High Sens 43.8 H (0-20) pg/ml Vitamin B12 (180-914) pg/ml Folate (>5.38) ng/ml Procalcitonin (0-0.5) ng/ml Nasal Screen MRSA (PCR) Negative (Negative) Blood Type Blood Type Recheck Antibody Screen Crossmatch 02/28/24 02/28/24 Range/Units 20:29 19:02 WBC (4.8-10.8) K/ul RBC (4.70-6.10) M/uL Hgb (14.0-18.0) g/dl Hct (42.0-52.0) % MCV (80.0-100.0) fL MCH (25.0-34.0) pg MCHC (32.0-36.0) g/dL RDW Std Deviation (36.4-46.3) fL RDW Coeff of Baldo (11.5-14.5) % Plt Count (130-400) K/uL MPV (9.4-12.4) fL Immature Gran % (Auto) % Neut % (Auto) % Lymph % (Auto) % Cache % (Auto) % Eos % (Auto) % Baso % (Auto) % Neut # (Auto) (1.40-6.50) K/uL Lymph # (Auto) (1.20-3.40) K/uL Cache # (Auto) (0.11-0.59) K/uL Eos # (Auto) (0.00-0.50) K/uL Baso # (Auto) (0.00-0.20) K/uL Immature Gran # (Auto) (0.01-0.20) K/uL RBC Morphology Polychromasia Sodium 152 H (136-145) mmol/L Potassium 3.3 L (3.5-5.1) mmol/L Chloride 118 H (98-107) mmol/L Carbon Dioxide 27 (21-32) mmol/L Anion Gap 7 (3-11) BUN 20 (6-23) mg/dl Creatinine 0.65 (0.6-1.4) mg/dl Est Cr Clr Drug Dosing 62.2 ml/min Est GFR ( Amer) 102.1 ml/min Est GFR (Non-Af Amer) 88.1 ml/min BUN/Creatinine Ratio 30.8 H (10-20) Glucose 143 H (70-99(Fasting)) mg/dl POC Glucose 106 H (70-99) mg/dl Calcium 8.1 L (8.6-10.3) mg/dl Phosphorus (2.5-4.9) mg/dl Magnesium (1.7-2.4) mg/dl Iron (35-175) mcg/dl Unsaturated IBC (155-355) mcg/dl Ferritin (8-388) ng/ml Troponin I High Sens 36.4 H (0-20) pg/ml Vitamin B12 (180-914) pg/ml Folate (>5.38) ng/ml Procalcitonin (0-0.5) ng/ml Nasal Screen MRSA (PCR) (Negative) Blood Type Blood Type Recheck Antibody Screen Crossmatch Diagnostic Findings Selected Entries 03/06/24 14:49 Summary / Recommendations SUMMARY Severe oropharyngeal dysphagia was a significant amount of retention along the tongue base and throughout the oral cavity with all boluses which increased with viscosity. There was penetration and aspiration on thin liquids via cup sip. Pt was cued to cough to try and clear the airway when the aspiration occurred. He was unable to follow directions and started counting. He was able to produce a cough with demonstration cues, this was not effective to clear the aspiration. No aspiration or penetration on mildly thick liquids or pudding. There was significant pharyngeal weakness. Pt had significant retention on the epiglottis with a diminished pharyngeal stripping wave. Therefore, the following is recommended: 1.Pureed diet IDDSI 4, mildly thick liquids IDDSI 2. 2.Aspiration precautions: small sips, slow rate, fully upright and alerted, alt solids and liquids, give meds via carrier. 3.Oral hygiene as tolerated a.Clean all surfaces of the mouth before eating to reduce the amount of bacteria that can be aspirated. 4.Speech does not plan to follow if any changes in status warrants please reach out to [employer]OR [employer] services. ANSELMO Marrufo reported that family is very realistic of pts status and his limited intake at this time. Report given to Doctor Allen in verbal understanding. Thank you for referral of this patient. Please contact me at if any additional information is needed PG Care Time/CCT Total # of Minutes Spent Total Time Spent with Patient: Total time spent is greater than 50% in coordination of care (as documented) at patient's floor/unit and/or counseling patient: I spent 50 minutes overall addressing this case: 25 min in medical data review/discussion with referring provider(s) and/or preparation for the visit 15 min in direct interaction with the patient/exam 00 min in Advance Care Planning/Goals of Care discussions as detailed above in note (must be >16min) 5 min in subsequent review and synthesis of assessment and plan 5 min communicating with other providers regarding the patient's case: [place] [address] IN/OBS CONSULT LVL 4,60M Patient Type New History Comprehensive Exam Comprehensive Medical Decision Making High Complexity Diagnoses Weakness generalized R53.1 Confusion R41.0 Aspiration into airway T17.908A Dysphagia R13.10 Dementia F03.90 Palliative care by specialist Z51.5 Discussion about advance care planning held with family member Z71.0
[2024-03-06] MEDS: MAGNESIUM CHLORIDE W/CALCIUM 64MG DELAYED REL TAB PO SCH (20:49)
[2024-03-07 06:34] LABS: Hematocrit (blood only) 26.4 % (42.0-52.0); Hemoglobin 8.6 g/dl (14.0-18.0); Mean Corpuscular Hemoglobin 30.4 pg (25.0-34.0); Mean Corpuscular Hgb Conc 32.6 g/dL (32.0-36.0); Mean Corpuscular Volume 93.3 fL (80.0-100.0); Mean Platelet Volume 8.8 fL (9.4-12.4); Platelet Count 375 K/uL (130-400); RDW Coefficient of Variation 15.9 % (11.5-14.5); RDW Standard Deviation 50.9 fL (36.4-46.3); Red Blood Count 2.83 M/uL (4.70-6.10); White Blood Count 8.87 K/ul (4.8-10.8)
[2024-03-07 06:53] LABS: BUN Creatinine Ratio 15.6 (10-20); Calcium 7.7 mg/dl (8.6-10.3); Creatinine Clr Calc Pharmacy 94.3 ml/min; Est GFR (African American) 118.8 ml/min; Est GFR (Non-African American) 102.5 ml/min; Magnesium 1.7 mg/dl (1.7-2.4); Phosphorus 2.9 mg/dl (2.5-4.9); Potassium 3.3 mmol/L (3.5-5.1)
[2024-03-07] MEDS: CARBOHYDRATES FOR HYPOGLYCEMIA PO PRN (08:15)
[2024-03-07] MEDS: D5W AND 1/2NSS + 20MEQ KCL 20 MEQ/1,000 ML BAG IV ONE (09:59)
[2024-03-07] MEDS: POTASSIUM CHLORIDE 20 MEQ/15 ML UDC PO ONE (09:59)
--- NOTE | 2024-03-07 15:14 | Hospitalist Progress Note ---
Date of Service March 07, 2024 Assessment & Plan (1) Acute metabolic encephalopathy: Plan: This is a 88-year-old male with history of dementia, diabetes mellitus type 2, recent COVID-19 and pneumonia, recent periprosthetic fracture right hip surgical treated at [place], among other medical problems who was sent from [facility] rehab for hypernatremia and ongoing confusion Acute metabolic encephalopathy Likely multifactorial (hypernatremia, dementia, recent COVID-19 infection, delirium) --CT Head:No acute infarct or intracranial hemorrhage. Acute sphenoid sinusitis. Continue delirium precautions Sodium levels improved Currently off restraints Fall precautions, PT OT as able Poor oral intake IV fluids as needed Palliative care consulted as well Remains confused Dysphagia with aspiration --Video Swallow:Several episodes of tracheal aspiration with thin liquids. No aspiration with nectar thick liquids or pudding consistency. Appreciate speech evaluation recommendations On nectar thick pured diet Aspiration precautions Empirically on IV Unasyn Patient's daughter understands risks and complications Electrolyte abnormalities Hypernatremia, hypokalemia, hypomagnesemia and hypophosphatemia Likely secondary to poor oral intake and dehydration Complicated by infection Monitor and replete electrolytes as needed Anemia-iron deficiency anemia Postop blood loss anemia-S/P ORIF right hip on 01/29/2024 at [facility] [place] --Iron deficiency anemia contributing as well --S/P 1 unit PRBCs --Received IV iron -- Normal vitamin B12, folate levels -- Low iron levels -- No obvious bleeding issues -- Continue oral iron supplements Monitor CBC Recent COVID-19 infection --CXR:There are new patchy mild bibasilar airspace opacities suspicious for multifocal pneumonia. -- Normal procalcitonin -- Empirically on Rocephin, Doxy>> changed to Unasyn -- Saturating well on room air As per prior provider Deconditioning-history is taken from the daughter Deterioration of his mobility and overall medical status started to build up since he was transferred from [facility] following hip replacement to [place] [facility] to continue physical therapy He has not been mobile and laying in bed most of the time at [facility] for the last 1 or 2 weeks He has not been drinking and eating enough Palliative care consulted to address goals of care (2) Acute hypernatremia: Plan: Acute hypernatremia: sodium 152 on presentation Likely from poor oral intake given his dementia and confusion. Received IV fluids Sodium level 141 today Monitor closely (3) Pneumonia: Plan: As per prior provider: Multifocal Pneumonia/ acute sphenoid sinusitis: patient was diagnosed with COVID on 02/08 at [facility] and also received Ceftriaxone for 7 days for pneumonia. chest x-ray here shows multifocal pneumonia, unclear whether this is from his recent pneumonia versus a new one. He was started on ceftriaxone send doxycycline in the ED which we will continue for now - this will also cover the sinusitis. Will consult ASSISTANT PROFESSOR OF ECONOMICS evmartina to see if he might be aspirating. Lactic acidosis has resolved. No more fever and or chills and remains hemodynamically stable Was on IV Rocephin, doxycycline >> changed to Unasyn (4) Elevated troponin: Plan: Secondary to demand ischemia (5) Diabetes mellitus type 2 with complications: Plan: Last HbA1c 6.3 Continue insulin while hospitalized Monitor BGs Noted hypoglycemic episodes Continue hypoglycemia protocol (6) Dementia: Plan: Continue home medications (7) Hypothyroidism: Plan: Continue levothyroxine (8) Lab test positive for detection of COVID-19 virus: Plan: Management as above Plan :Other significant medical conditions are documented as below Severe malnutrition BMI of 16.6 As per prior provider: GOC discussion- discussed with son at bedside who is also POA along with the sisters. He is quite realistic. States he is DNR/DNI. He would like to continue IVF and antibiotics but he does not think he would want PEG tube or BIPAP or ICU transfer for pressors if it comes to that. DVT Px: Lovenox SQ CODE STATUS DNR/DNI Overall prognosis is poor Admission and Anticipated Discharge Date Admission Date: February 28, 2024 Subjective Patient is seen and examined at bedside No distress on exam Pleasantly confused Updated patient's daughter over the phone Noted hypoglycemia this morning/overnight Poor appetite Leukocytosis resolved Review of Systems Review of Systems: All systems reviewed & are unremarkable except as noted in Subjective Physical Exam Physical Exam: Physical Exam: Vitals signs as noted above General Appearance: Thin, frail, elderly, chronically appearing, no apparent distress Head: normocephalic, Atraumatic Eyes: normal inspection, EOMI Neck: supple, Trachea midline Respiratory/Chest: Decreased breath sounds, CTA, No accessory muscle use Cardiovascular: S1, S2, No murmur Abdomen/GI:Soft, Non tender, Bowel sounds present Extremities/Musculoskeletal:normal inspection, no edema Neurologic/Psych:AAOX1, grossly no focal neurological deficits, +Pleasantly confused Skin: normal color, warm Results & Data Results & Data Vital Signs (Past 12 Hours) Vital Signs Temp Pulse Pulse Resp BP Pulse Ox O2 Del Method 03/07/24 11:15 36.4 C L 76 16 121/64 98 Room Air 03/07/24 08:28 36.5 C 69 18 119/70 98 Room Air 03/07/24 07:32 89 03/07/24 03:56 36.6 C 70 16 129/74 94 Room Air Laboratory Results Short CBC 03/07/24 Range/Units 06:07 WBC 8.87 (4.8-10.8) K/ul Hgb 8.6 L (14.0-18.0) g/dl Hct 26.4 L (42.0-52.0) % Plt Count 375 (130-400) K/uL BMP 03/07/24 06:07 Sodium 141 Potassium 3.3 L Chloride 107 Carbon Dioxide 26 BUN 7 Creatinine 0.45 L Glucose 56 L Calcium 7.7 L (3) Pneumonia Laterality: bilateral Lung location: unspecified part of lung Pneumonia type: due to unspecified organism Qualified Code(s): J18.9 - Pneumonia, uns pecified organism (7) Hypothyroidism Hypothyroidism type: acquired Qualified Code(s): E03.9 - Hypothyroidism, unspecified
[2024-03-08 06:15] LABS: Hematocrit (blood only) 28.1 % (42.0-52.0); Hemoglobin 9.1 g/dl (14.0-18.0); Mean Corpuscular Hemoglobin 29.9 pg (25.0-34.0); Mean Corpuscular Hgb Conc 32.4 g/dL (32.0-36.0); Mean Corpuscular Volume 92.4 fL (80.0-100.0); Mean Platelet Volume 8.8 fL (9.4-12.4); Platelet Count 430 K/uL (130-400); RDW Coefficient of Variation 15.7 % (11.5-14.5); RDW Standard Deviation 52.3 fL (36.4-46.3); Red Blood Count 3.04 M/uL (4.70-6.10); White Blood Count 8.82 K/ul (4.8-10.8)
[2024-03-08 06:33] LABS: Creatinine Clr Calc Pharmacy 98.7 ml/min; Est GFR (Non-African American) 104.4 ml/min; Potassium 3.9 mmol/L (3.5-5.1)
--- NOTE | 2024-03-08 14:51 | Hospitalist Progress Note ---
Date of Service March 08, 2024 Assessment & Plan (1) Acute metabolic encephalopathy: Plan: This is a 88-year-old male with history of dementia, diabetes mellitus type 2, recent COVID-19 and pneumonia, recent periprosthetic fracture right hip surgical treated at [place], among other medical problems who was sent from [facility] rehab for hypernatremia and ongoing confusion Acute metabolic encephalopathy Likely multifactorial (hypernatremia, dementia, recent COVID-19 infection, delirium) --CT Head:No acute infarct or intracranial hemorrhage. Acute sphenoid sinusitis. Continue delirium precautions Sodium levels improved Currently off restraints Fall precautions, PT OT as able Poor oral intake IV fluids as needed Palliative care consulted as well Remains pleasantly confused Reorient frequently Dysphagia with aspiration --Video Swallow:Several episodes of tracheal aspiration with thin liquids. No aspiration with nectar thick liquids or pudding consistency. Appreciate speech evaluation recommendations On nectar thick pured diet Aspiration precautions Empirically on IV Unasyn Patient's daughter understands risks and complications Leukocytosis resolved Electrolyte abnormalities Hypernatremia, hypokalemia, hypomagnesemia and hypophosphatemia Likely secondary to poor oral intake and dehydration Complicated by infection Monitor and replete electrolytes as needed Anemia-iron deficiency anemia Postop blood loss anemia-S[place] [facility] [place]Iron deficiency anemia contributing as well --S/P 1 unit PRBCs --Received IV iron -- Normal vitamin B12, folate levels -- Low iron levels -- No obvious bleeding issues -- Continue oral iron supplements Hb stable, Monitor Recent COVID-19 infection --CXR:There are new patchy mild bibasilar airspace opacities suspicious for multifocal pneumonia. -- Normal procalcitonin -- Empirically on Rocephin, Doxy>> changed to Unasyn -- Saturating well on room air As per prior provider Deconditioning-history is taken from the daughter Deterioration of his mobility and overall medical status started to build up since he was transferred from following hip replacement to [facility] to continue physical therapy He has not been mobile and laying in bed most of the time at [facility] for the last 1 or 2 weeks He has not been drinking and eating enough Palliative care consulted to address goals of care (2) Acute hypernatremia: Plan: Acute hypernatremia: sodium 152 on presentation Likely from poor oral intake given his dementia and confusion. Received IV fluids Sodium level 138 today Monitor closely (3) Pneumonia: Plan: As per prior provider: Multifocal Pneumonia/ acute sphenoid sinusitis: patient was diagnosed with COVID on 02/[address] [facility] and also received Ceftriaxone for 7 days for pneumonia. chest x-ray here shows multifocal pn eumonia, unclear whether this is from his recent pneumonia versus a new one. He was started on ceftriaxone send doxycycline in the ED which we will continue for now - this will also cover the sinusitis. Will consult HOME ORGANIZER feli to see if he might be aspirating. Lactic acidosis has resolved. No more fever and or chills and remains hemodynamically stable Was on IV Rocephin, doxycycline >> changed to Unasyn (4) Elevated troponin: Plan: Secondary to demand ischemia (5) Diabetes mellitus type 2 with complications: Plan: Last HbA1c 6.3 Continue insulin while hospitalized Monitor BGs Noted hypoglycemic episodes Continue hypoglycemia protocol (6) Dementia: Plan: Continue home medications (7) Hypothyroidism: Plan: Continue levothyroxine (8) Lab test positive for detection of COVID-19 virus: Plan: Management as above Plan :Other significant medical conditions are documented as below Severe malnutrition BMI of 16.6 As per prior provider: GOC discussion- discussed with son at bedside who is also POA along with the sisters. He is quite realistic. States he is DNR/DNI. He would like to continue IVF and antibiotics but he does not think he would want PEG tube or BIPAP or ICU transfer for pressors if it comes to that. DVT Px: Lovenox SQ CODE STATUS DNR/DNI Overall prognosis is poor Admission and Anticipated Discharge Date Admission Date: February 28, 2024 Subjective Patient is seen and examined at bedside Clinically remains unchanged from yesterday Unable to obtain any history Sleeping during my encounter Hypoglycemia resolved Afebrile No distress on exam Review of Systems Review of Systems: Other Physical Exam Physical Exam: Physical Exam: Vitals signs as noted above General Appearance: Thin, frail, elderly, chronically appearing, no apparent distress Head: normocephalic, Atraumatic Eyes: normal inspection, EOMI Neck: supple, Trachea midline Respiratory/Chest: Decreased breath sounds, CTA, No accessory muscle use Cardiovascular: S1, S2, No murmur Abdomen/GI:Soft, Non tender, Bowel sounds present Extremities/Musculoskeletal:normal inspection, no edema Neurologic/Psych:AAOX1, grossly no focal neurological deficits, +Pleasantly confused Skin: normal color, warm Results & Data Results & Data Vital Signs (Past 12 Hours) Vital Signs Temp Pulse Pulse Resp BP Pulse Ox O2 Del Method 03/08/24 11:52 36.7 C 106 H 16 118/52 L 97 Room Air 03/08/24 08:03 36.9 C 70 16 120/75 97 Room Air 03/08/24 07:12 82 Laboratory Results Short CBC 03/08/24 Range/Units 05:31 WBC 8.82 (4.8-10.8) K/ul Hgb 9.1 L (14.0-18.0) g/dl Hct 28.1 L (42.0-52.0) % Plt Count 430 H (130-400) K/uL BMP 03/08/24 05:31 Sodium 138 Potassium 3.9 Chloride 105 Carbon Dioxide 27 BUN 6 Creatinine 0.43 L Glucose 115 H Calcium 8.0 L (3) Pneumonia Laterality: bilateral Lung location: unspecified part of lung Pneumonia type: due to unspecified organism Qualified Code(s): J18.9 - Pneumonia, unspecified organism (7) Hypothyroidism Hypothyroidism type: acquired Qualified Code(s): E03.9 - Hypothyroidism, unspecified
[2024-03-09 07:17] LABS: Hemoglobin 9.2 g/dl (14.0-18.0); Mean Corpuscular Hgb Conc 32.9 g/dL (32.0-36.0); Mean Corpuscular Volume 91.2 fL (80.0-100.0); Mean Platelet Volume 8.8 fL (9.4-12.4); Platelet Count 436 K/uL (130-400); RDW Coefficient of Variation 15.5 % (11.5-14.5); RDW Standard Deviation 50.4 fL (36.4-46.3); Red Blood Count 3.07 M/uL (4.70-6.10); White Blood Count 7.52 K/ul (4.8-10.8)
[2024-03-09 07:49] LABS: Creatinine Clr Calc Pharmacy 98.7 ml/min; Est GFR (Non-African American) 104.4 ml/min; Potassium 3.7 mmol/L (3.5-5.1)
--- NOTE | 2024-03-09 15:15 | Hospitalist Progress Note ---
Date of Service March 09, 2024 Assessment & Plan (1) Acute metabolic encephalopathy: Plan: This is a 88-year-old male with history of dementia, diabetes mellitus type 2, recent COVID-19 and pneumonia, recent periprosthetic fracture right hip surgical treated at [place], among other medical problems who was sent from [facility] rehab for hypernatremia and ongoing confusion Acute metabolic encephalopathy Likely multifactorial (hypernatremia, dementia, recent COVID-19 infection, delirium) --CT Head:No acute infarct or intracranial hemorrhage. Acute sphenoid sinusitis. Continue delirium precautions Sodium levels improved Currently off restraints Fall precautions, PT OT as able Poor oral intake IV fluids as needed Palliative care consulted as well Remains pleasantly confused Reorient frequently Clinically showed no significant improvement Need to address goals of care Dysphagia with aspiration --Video Swallow:Several episodes of tracheal aspiration with thin liquids. No aspiration with nectar thick liquids or pudding consistency. Appreciate speech evaluation recommendations On nectar thick pured diet Aspiration precautions Empirically on IV Unasyn Patient's daughter understands risks and complications Leukocytosis resolved Continue current management Electrolyte abnormalities Hypernatremia, hypokalemia, hypomagnesemia and hypophosphatemia Likely secondary to poor oral intake and dehydration Complicated by infection Monitor and replete electrolytes as needed Anemia-iron deficiency anemia Postop blood loss anemia-S/P ORIF right hip on 01/29/2024 at [facility] --Iron deficiency anemia contributing as well --S/P 1 unit PRBCs --Received IV iron -- Normal vitamin B12, folate levels -- Low iron levels -- No obvious bleeding issues -- Continue oral iron supplements Hb stable, Monitor Recent COVID-19 infection --CXR:There are new patchy mild bibasilar airspace opacities suspicious for multifocal pneumonia. -- Normal procalcitonin -- Empirically on Rocephin, Doxy>> changed to Unasyn -- Saturating well on room air As per prior provider Deconditioning-history is taken from the daughter Deterioration of his mobility and overall medical status started to build up since he was transferred from [facility] following hip replacement to [facility] to continue physical therapy He has not been mobile and laying in bed most of the time at [facility] for the last 1 or 2 weeks He has not been drinking and eating enough Palliative care consulted to address goals of care (2) Acute hypernatremia: Plan: Acute hypernatremia: sodium 152 on presentation Likely from poor oral intake given his dementia and confusion. Received IV fluids Sodium level 138 today Monitor closely (3) Pneumonia: Plan: As per prior provider: Multifocal Pneumonia/ acute sphenoid sinusitis: patient was diagnosed with COVID on 02/08 at [facility] and also received Ceftriaxone for 7 days for pneumonia. chest x-ray here shows multifocal pneumonia, unclear whether this is from his recent pneumonia versus a new one. He was started on ceftriaxone send doxycycline in the ED which we will continue for now - this will also cover the sinusitis. Will consult DAIRY [employer] evmartina to see if he might be aspirating. Lactic acidosis has resolved. No more fever and or chills and remains hemodynamically stable Was on IV Rocephin, doxycycline >> changed to Unasyn (4) Elevated troponin: Plan: Secondary to demand ischemia (5) Diabetes mellitus type 2 with complications: Plan: Last HbA1c 6.3 Continue insulin while hospitalized Monitor BGs Noted hypoglycemic episodes Continue hypoglycemia protocol (6) Dementia: Plan: Continue home medications (7) Hypothyroidism: Plan: Continue levothyroxine (8) Lab test positive for detection of COVID-19 virus: Plan: Management as above Plan :Other significant medical conditions are documented as below Severe malnutrition BMI of 16.6 As per prior provider: GOC discussion- discussed with son at bedside who is also POA along with the sisters. He is quite realistic. States he is DNR/DNI. He would like to continue IVF and antibiotics but he does not think he would want PEG tube or BIPAP or ICU transfer for pressors if it comes to that. DVT Px: Lovenox SQ CODE STATUS DNR/DNI Overall prognosis is poor Admission and Anticipated Discharge Date Admission Date: February 28, 2024 Subjective Patient is seen and examined at bedside Poor historian Pleasantly confused No significant change from yesterday No distress on exam Review of Systems Review of Systems: Other Physical Exam Physical Exam: Physical Exam: Vitals signs as noted above General Appearance: Thin, frail, elderly, chronically appearing, no apparent distress Head: normocephalic, Atraumatic Eyes: normal inspection, EOMI Neck: supple, Trachea midline Respiratory/Chest: Decreased breath sounds, CTA, No accessory muscle use Cardiovascular: S1, S2, No murmur Abdomen/GI:Soft, Non tender, Bowel sounds present Extremities/Musculoskeletal:normal inspection, no edema Neurologic/Psych:AAOX1, grossly no focal neurological deficits, +Pleasantly confused Skin: normal color, warm Results & Data Results & Data Vital Signs (Past 12 Hours) Vital Signs Temp Pulse Pulse Resp BP Pulse Ox O2 Del Method 03/09/24 11:40 36.5 C 76 16 130/81 96 Room Air 03/09/24 08:24 36.1 C L 76 16 131/78 98 Room Air 03/09/24 08:00 70 03/09/24 04:06 36.4 C L 76 18 124/74 97 Room Air Laboratory Results Short CBC 03/09/24 Range/Units 06:43 WBC 7.52 (4.8-10.8) K/ul Hgb 9.2 L (14.0-18.0) g/dl Hct 28.0 L (42.0-52.0) % Plt Count 436 H (130-400) K/uL BMP 03/09/24 06:43 Sodium 136 Potassium 3.7 Chloride 103 Carbon Dioxide 29 BUN 6 Creatinine 0.43 L Glucose 90 Calcium 8.0 L (3) Pneumonia Laterality: bilateral Lung location: unspecified part of lung Pneumonia type: due to unspecified organism Qualified Code(s): J18.9 - Pneumonia, unspecified organism (7) Hypothyroidism Hypothyroidism type: acquired Qualified Code(s): E03.9 - Hypothyroidism, unspecified
--- NOTE | 2024-03-10 08:53 | Communication Note ---
Date of Service: March 10, 2024 Brief Palliative Med Note Attempted to reach dtr/SDM again x 2, no answer, no option to leave voicemail. Please page with any additional concerns. Kodi Clark DNP Palliative Medicine
--- NOTE | 2024-03-10 14:24 | Communication Note ---
Date of Service: March 10, 2024 Tried to reach both Son and Daughter to update, No answer when called.
--- NOTE | 2024-03-10 15:05 | Communication Note ---
Date of Service: March 10, 2024 Palliative Medicine ACP Family Meeting Note I called and spoke with daughter/POYoan Jurado for 30min. We spoke about Cuco's dementia, its stages of progression and most likely expectation moving forward. Tried defining "what does better mean to you?" and got some clarity. We agreed to see how he does at [facility] with the rehab trial and they will follow up with me in OP clinic in 4 weeks from al (Destinee my admin will schedule this) and we also spoke about what if he worsens at [facility] - i suggested treat what can be treated at [facility] and if he declines in spite of that then transition to comfort. I told her returning to hospital with this adv state of dementia to treat isolated things like dehydration or aspiration won't fix/reverse/cure the underlying dementia. When I asked her what he would want she replied he would never want to prolong living like this bc he was always such an intellectual and this is not the life he wanted for himself - his father also from dementia so he was vocal with the kids about "don't ever let me linger like that, it is not a life." Hospice discussed. More to come after clinic but i think we laid out some good groundwork and she sees the value of adding hospice at [facility] if he worsens. All questions answered to her apparent satisfaction. TS 30min, 100% in ACP discussion above MDM High Thank you for allowing us to participate in the ongoing care of this patient. Please page with any additional concerns. Kodi Clark DNP Director, Palliative Medicine
--- NOTE | 2024-03-10 17:27 | Hospitalist Progress Note ---
Date of Service March 10, 2024 Assessment & Plan (1) Acute metabolic encephalopathy: Plan: This is a 88-year-old male with history of dementia, diabetes mellitus type 2, recent COVID-19 and pneumonia, recent periprosthetic fracture right hip surgical treated at [place], among other medical problems who was sent from [facility] rehab for hypernatremia and ongoing confusion Acute metabolic encephalopathy Likely multifactorial (hypernatremia, dementia, recent COVID-19 infection, delirium) --CT Head:No acute infarct or intracranial hemorrhage. Acute sphenoid sinusitis. Continue delirium precautions Sodium levels improved Currently off restraints Fall precautions, PT OT as able Poor oral intake IV fluids as needed Remains pleasantly confused Reorient frequently Clinically showed no significant improvement Appreciate palliative care input Waiting for rehab placement Dysphagia with aspiration --Video Swallow:Several episodes of tracheal aspiration with thin liquids. No aspiration with nectar thick liquids or pudding consistency. Appreciate speech evaluation recommendations On nectar thick pured diet Aspiration precautions Empirically on IV Unasyn Patient's daughter understands risks and complications Leukocytosis resolved Will complete antibiotic course tomorrow Electrolyte abnormalities Hypernatremia, hypokalemia, hypomagnesemia and hypophosphatemia Likely secondary to poor oral intake and dehydration Complicated by infection Monitor and replete electrolytes as needed Anemia-iron deficiency anemia Postop blood loss anemia-S/P ORIF right hip on 01/29/2024 at [facility] --Iron deficiency anemia contributing as well --S/P 1 unit PRBCs --Received IV iron -- Normal vitamin B12, folate levels -- Low iron levels -- No obvious bleeding issues -- Continue oral iron supplements Hb stable, Monitor Recent COVID-19 infection --CXR:There are new patchy mild bibasilar airspace opacities suspicious for multifocal pneumonia. -- Normal procalcitonin -- Empirically on Rocephin, Doxy>> changed to Unasyn -- Saturating well on room air As per prior provider Deconditioning-history is taken from the daughter Deterioration of his mobility and overall medical status started to build up since he was transferred from [facility] following hip replacement to [facility] to continue physical therapy He has not been mobile and laying in bed most of the time at [facility] for the last 1 or 2 weeks He has not been drinking and eating enough Palliative care consulted to address goals of care (2) Acute hypernatremia: Plan: Acute hypernatremia: sodium 152 on presentation Likely from poor oral intake given his dementia and confusion. Received IV fluids Sodium level 136 Monitor closely (3) Pneumonia: Plan: As per prior provider: Multifocal Pneumonia/ acute sphenoid sinusitis: patient was diagnosed with COVID on 02/08 at [facility] and also received Ceftriaxone for 7 days for pneumonia. chest x-ray here shows multifocal pneumonia, unclear whether this is from his recent pneumonia versus a new one. He was started on ceftriaxone send doxycycline in the ED which we will continue for now - this will also cover the sinusitis. Will consult [employer] M[employer]TER eval to see if he might be aspirating. Lactic acidosis has resolved. No more fever and or chills and remains hemodynamically stable Was on IV Rocephin, doxycycline >> changed to Unasyn Will complete antibiotic course tomorrow (4) Elevated troponin: Plan: Secondary to demand ischemia (5) Diabetes mellitus type 2 with complications: Plan: Last HbA1c 6.3 Continue insulin while hospitalized Monitor BGs Noted hypoglycemic episodes Continue hypoglycemia protocol (6) Dementia: Plan: Continue home medications (7) Hypothyroidism: Plan: Continue levothyroxine (8) Lab test positive for detection of COVID-19 virus: Plan: Management as above Plan :Other significant medical conditions are documented as below Severe malnutrition BMI of 16.6 As per prior provider: GOC discussion- discussed with son at bedside who is also POA along with the sisters. He is quite realistic. States he is DNR/DNI. He would like to continue IVF and antibiotics but he does not think he would want PEG tube or BIPAP or ICU transfer for pressors if it comes to that. DVT Px: Lovenox SQ CODE STATUS DNR/DNI Disposition Overall prognosis is poor Plan to discharge to SNF when accepted Admission and Anticipated Discharge Date Admission Date: February 28, 2024 Subjective Patient is seen and examined at bedside Poor historian Pleasantly confused Discussed with palliative care today Waiting for rehab placement Review of Systems Review of Systems: Other Physical Exam Physical Exam: Physical Exam: Vitals signs as noted above General Appearance: Thin, frail, elderly, chronically appearing, no apparent distress Head: normocephalic, Atraumatic Eyes: normal inspection, EOMI Neck: supple, Trachea midline Respiratory/Chest: Decreased breath sounds, CTA, No accessory muscle use Cardiovascular: S1, S2, No murmur Abdomen/GI:Soft, Non tender, Bowel sounds present Extremities/Musculoskeletal:normal inspection, no edema Neurologic/Psych:AAOX1, grossly no focal neurological deficits, +Pleasantly confused Skin: normal color, warm Results & Data Results & Data Vital Signs (Past 12 Hours) Vital Signs Temp Pulse Resp BP BP Pulse Ox O2 Del Method 03/10/24 15:31 36.4 C L 73 18 118/66 96 Room Air 03/10/24 13:47 Room Air 03/10/24 08:38 36.6 C 78 18 124/76 92 Room Air (3) Pneumonia Laterality: bilateral Lung location: unspecified part of lung Pneumonia type: due to unspecified organism Qualified Code(s): J18.9 - Pneumonia, unspecified organism (7) Hypothyroidism Hypothyroidism type: acquired Qualified Code(s): E03.9 - Hypothyroidism, unspecified
[2024-03-11 06:30] LABS: Hematocrit (blood only) 26.7 % (42.0-52.0); Hemoglobin 8.7 g/dl (14.0-18.0); Mean Corpuscular Hemoglobin 30.1 pg (25.0-34.0); Mean Corpuscular Hgb Conc 32.6 g/dL (32.0-36.0); Mean Corpuscular Volume 92.4 fL (80.0-100.0); Mean Platelet Volume 8.7 fL (9.4-12.4); Platelet Count 427 K/uL (130-400); RDW Coefficient of Variation 15.4 % (11.5-14.5); RDW Standard Deviation 51.8 fL (36.4-46.3); Red Blood Count 2.89 M/uL (4.70-6.10); White Blood Count 5.75 K/ul (4.8-10.8)
[2024-03-11 06:42] LABS: BUN Creatinine Ratio 14.3 (10-20); Calcium 7.8 mg/dl (8.6-10.3); Creatinine Clr Calc Pharmacy 87.1 ml/min; Est GFR (African American) 114.7 ml/min; Est GFR (Non-African American) 98.9 ml/min; Potassium 3.9 mmol/L (3.5-5.1)
--- NOTE | 2024-03-11 15:12 | Hospitalist Progress Note ---
Date of Service March 11, 2024 Assessment & Plan (1) Acute metabolic encephalopathy: Plan: In summary, 88-year-old male with history of dementia, diabetes mellitus type 2, recent COVID-19 and pneumonia, recent periprosthetic fracture right hip surgical treated at [place], among other medical problems who was sent from [facility] rehab for hypernatremia and AMS Acute metabolic encephalopathy Likely multifactorial (hypernatremia, dementia, recent COVID-19 infection, delirium) --CT Head:No acute infarct or intracranial hemorrhage. Acute sphenoid sinusitis. Continue delirium precautions Sodium levels improved Currently off restraints Fall precautions, PT OT as tolerated Poor oral intake, encourage as much as possible IV fluids prn Remains pleasantly confused Reorient frequently Appreciate palliative care consult Waiting for rehab placement, Accepted at [facility] for this Saturday if clinically stable Dysphagia with aspiration --Video Swallow:Several episodes of tracheal aspiration with thin liquids. No aspiration with nectar thick liquids or pudding consistency. Appreciate speech evaluation recommendations On nectar thick pured diet Aspiration precautions Empirically on IV Unasyn, Course completion today Leukocytosis resolved Electrolyte abnormalities Hypernatremia, hypokalemia, hypomagnesemia and hypophosphatemia Likely secondary to poor oral intake and dehydration Complicated by infection Monitor and replete electrolytes as needed Anemia-iron deficiency anemia Postop blood loss anemia-S/P ORIF right hip on 01/29/2024 at [facility] --Iron deficiency anemia contributing as well --S/P 1 unit PRBCs --Received IV iron -- Normal vitamin B12, folate levels -- Low iron levels -- No obvious bleeding issues -- Continue oral iron supplements --Follow HGB Recent COVID-19 infection --CXR:There are new patchy mild bibasilar airspace opacities suspicious for multifocal pneumonia. -- Normal procalcitonin -- ECompleted Unasyn course -- On RA (2) Acute hypernatremia: Plan: Acute hypernatremia: sodium 152 on presentation Likely from poor oral intake given his dementia and confusion. Received IV fluids Sodium level 137 today Monitor closely (3) Pneumonia: Plan: Multifocal Pneumonia/ acute sphenoid sinusitis: patient was diagnosed with COVID on 02/08 at [facility] and also received Ceftriaxone for 7 days for pneumonia. chest x-ray here shows multifocal pneumonia, unclear whether this is from his recent pneumonia versus a new one. He completed a course of Unasyn this admission. Speech consulted. (4) Elevated troponin: Plan: Secondary to demand ischemia (5) Diabetes mellitus type 2 with complications: Plan: Last HbA1c 6.3 Continue SSI Monitor BGs Observe for hypoglycemic episodes Continue hypoglycemia protocol (6) Dementia: Plan: Continue home medications (7) Hypothyroidism: Plan: Continue levothyroxine (8) Lab test positive for detection of COVID-19 virus: Plan: Management as above Plan :Other significant medical conditions are documented as below Severe malnutrition BMI of 16.6 DVT Px: Lovenox SQ CODE STATUS DNR/DNI Disposition Overall prognosis is poor Plan to discharge to [facility] 03/13 Admission and Anticipated Discharge Date Admission Date: February 28, 2024 Subjective Patient is seen and examined at bedside His is a very poor historian Somnolent early this am but was awakened easily Palliative care consulted, Family would like a trial of rehab Waiting for rehab placement, Accepted at [facility] for this Saturday Review of Systems Review of Systems: ROS limited from patient, He denies pain Constitutional- no fever; Pulmonary- no cough, no wheezing, no shortness of breath Cardiac- no chest pain, GI- no nausea, no vomiting, Derm- no rashes, Hematologic- no unusual bruising, no unusual bleeding , Hgb 8.7 Physical Exam Physical Exam: General- Elderly, cachectic male adult lying in bed Head- atraumatic Eyes- PERRL, EOMI, anicteric Neck- no JVD, Lungs- Poor excursion and effort, Otherwise clear to auscultation Heart- regular rhythm; no murmur, no gallop, no rub appreciated Abdomen- normal bowel sounds, soft, nontender, no masses or hepatosplenomegaly Extremities- no pretibial edema, no calf tenderness; peripheral pulses intact Neuro- alert, oriented x1 ; PERRL, EOMI; Skin- warm & dry Results & Data Results & Data Vital Signs (Past 12 Hours) Vital Signs O2 Del Method 03/11/24 11:15 Room Air Laboratory Results Laboratory Results WBC 5.75 K/ul (4.8-10.8) 03/11/24 05:43 RBC 2.89 M/uL (4.70-6.10) L 03/11/24 05:43 Hgb 8.7 g/dl (14.0-18.0) L 03/11/24 05:43 Hct 26.7 % (42.0-52.0) L 03/11/24 05:43 MCV 92.4 fL (80.0-100.0) 03/11/24 05:43 MCH 30.1 pg (25.0-34.0) 03/11/24 05:43 MCHC 32.6 g/dL (32.0-36.0) 03/11/24 05:43 RDW Std Deviation 51.8 fL (36.4-46.3) H 03/11/24 05:43 RDW Coeff of Baldo 15.4 % (11.5-14.5) H 03/11/24 05:43 Plt Count 427 K/uL (130-400) H 03/11/24 05:43 MPV 8.7 fL (9.4-12.4) L 03/11/24 05:43 Immature Gran % (Auto) 0.8 % 03/04/24 06:45 Neut % (Auto) 65.8 % 03/04/24 06:45 Lymph % (Auto) 21.3 % 03/04/24 06:45 [place] % (Auto) 8.1 % 03/04/24 06:45 Eos % (Auto) 3.8 % 03/04/24 06:45 Baso % (Auto) 0.2 % 03/04/24 06:45 Neut # (Auto) 5.94 K/uL (1.40-6.50) 03/04/24 06:45 Lymph # (Auto) 1.92 K/uL (1.20-3.40) 03/04/24 06:45 [place] # (Auto) 0.73 K/uL (0.11-0.59) H 03/04/24 06:45 Eos # (Auto) 0.34 K/uL (0.00-0.50) 03/04/24 06:45 Baso # (Auto) 0.02 K/uL (0.00-0.20) 03/04/24 06:45 Immature Gran # (Auto) 0.07 K/uL (0.01-0.20) 03/04/24 06:45 RBC Morphology Unremarkable 03/04/24 06:45 Polychromasia 1+ 03/03/24 06:38 PT 11.9 Seconds (9.0-12.0) 02/28/24 13:47 INR 1.1 (0.9-1.1) 02/28/24 13:47 APTT 27 Seconds (21-31) 02/28/24 13:47 PTT Ratio 1.0 02/28/24 13:47 Sodium 137 mmol/L (136-145) 03/11/24 05:43 Potassium 3.9 mmol/L (3.5-5.1) 03/11/24 05:43 Chloride 103 mmol/L (98-107) 03/11/24 05:43 Carbon Dioxide 30 mmol/L (21-32) 03/11/24 05:43 Anion Gap 4 (3-11) 03/11/24 05:43 BUN 7 mg/dl (6-23) 03/11/24 05:43 Creatinine 0.49 mg/dl (0.6-1.4) L 03/11/24 05:43 Est Cr Clr Drug Dosing 87.1 ml/min 03/11/24 05:43 Est GFR ( Amer) 114.7 ml/min 03/11/24 05:43 Est GFR (Non-Af Amer) 98.9 ml/min 03/11/24 05:43 BUN/Creatinine Ratio 14.3 (10-20) 03/11/24 05:43 Glucose 86 mg/dl (70-99(Fasting)) 03/11/24 05:43 POC Glucose 145 mg/dl (70-99) H 03/11/24 12:01 Lactate 1.2 mmol/L (0.4-2.0) 02/28/24 16:37 Calcium 7.8 mg/dl (8.6-10.3) L 03/11/24 05:43 Phosphorus 2.9 mg/dl (2.5-4.9) 03/07/24 06:07 Magnesium 1.7 mg/dl (1.7-2.4) 03/07/24 06:07 Iron 23 mcg/dl (35-175) L 02/29/24 09:56 Unsaturated IBC 103 mcg/dl (155-355) L 02/29/24 09:56 Ferritin 449.5 ng/ml (8-388) H 02/29/24 09:56 Total Bilirubin 0.5 mg/dl (0.2-1.0) 02/28/24 13:47 AST 20 U/L (13-39) 02/28/24 13:47 ALT 14 U/L (7-52) 02/28/24 13:47 Alkaline Phosphatase 120 U/L (34-104) H 02/28/24 13:47 Total Creatine Kinase 70 U/L (30-223) 02/28/24 13:47 Troponin I High Sens 37.4 pg/ml (0-20) H 02/29/24 07:32 Total Protein 6.6 gm/dl (6.0-8.3) 02/28/24 13:47 Albumin 3.0 gm/dl (3.4-5.0) L 02/28/24 13:47 Globulin 3.6 gm/dl (2.5-4.0) 02/28/24 13:47 Albumin/Globulin Ratio 0.8 (0.9-2) L 02/28/24 13:47 Lipase 12 U/L (11-82) 02/28/24 13:47 Vitamin B12 474 pg/ml (180-914) 02/29/24 09:56 Folate 5.67 ng/ml (>5.38) 02/29/24 09:56 Procalcitonin 0.06 ng/ml (0-0.5) 03/05/24 09:05 Nasal Screen MRSA (PCR) Negative (Negative) 02/29/24 03:00 SARS-CoV-2, RNA, NAAT POSITIVE (NEGATIVE) A 02/28/24 15:40 Blood Type A Positive 03/04/24 08:17 Blood Type Recheck A Positive 03/04/24 09:25 Antibody Screen NEGATIVE 03/04/24 08:17 Crossmatch See Detail 03/04/24 08:17 Impressions Chest X-Ray 02/28/24 13:53 XR chest 1V portable HISTORY: 88 years-old Male Chest pain, nonspecific COMPARISON: 01/28/2024 TECHNIQUE: AP view the chest FINDINGS: Cardiac silhouette is enlarged. Pulmonary vascular congestion. No pneumothorax or pleural effusion. Mild patchy bilateral airspace opacities. Healed chronic appearing left-sided rib fractures. IMPRESSION: There are new patchy mild bibasilar airspace opacities suspicious for multifocal pneumonia. ACT 112: Negative or not required by law. The above report was generated using voice recognition software. It may contain grammatical, syntax or spelling errors. Electronically signed by: Vinod Wooten M.D. 02/28/2024 2:[address] 02/28/24 13:[address] DOSE: 953.61 mGy.cm HISTORY: Altered mental status. TECHNIQUE: Multiaxial CT images of the head were performed without the use of intravenous contrast. Automated exposure control was utilized for this study. A dose lowering technique was utilized adhering to the principles of ALARA. Comparison: Head CT 01/28/2024. Findings: Small fluid levels within the sphenoid sinuses. There is a small retention cyst within the left maxillary sinus. The mastoid air cells are clear. The calvarium and skull base are intact. There is no mass, hematoma, midline shift, acute infarct. White matter hypodensity is nonspecific but suggestive of microvascular ischemic change. The ventricles and sulci demonstrate mild age- related involutional changes. Impression: 1. No acute infarct or intracranial hemorrhage. 2. Acute sphenoid sinusitis. ACT 112: Negative or not required by law. Electronically signed by: Bijan Murillo M.D. 02/28/2024 2:23 PM Videofluoroscopic Swallow 03/06/24 10:00 MODIFIED BARIUM SWALLOW CLINICAL HISTORY: asess for aspiration COMPARISON STUDY: None. FLUOROSCOPY TIME: 55 seconds. Ka, r: 9.58 mGy. TECHNIQUE: A modified barium swallow was performed in conjunction with Speech Pathology. The patient ingested varying consistencies of barium containing material. Video fluoroscopy was performed. FINDINGS: Several episodes of tracheal aspiration were noted with thin liquids. No aspiration was identified with nectar thick liquids. There was no aspiration with pudding consistency. IMPRESSION: 1. Several episodes of tracheal aspiration with thin liquids. No aspiration with nectar thick liquids or pudding consistency. 2. Full recommendations by Speech pathology to follow. ACT 112: Negative or not required by law. Electronically signed by: Jace Molina M.D. 03/06/2024 1:31 PM Medications Administered Current Inpatient Medications Acetaminophen (Acetaminophen 325 Mg Tab) 650 mg PO Q4H PRN PRN Reason: fever pain Stop: 03/29/24 18:33 Last Admin: 03/11/24 07:42 Dose: 650 mg Albuterol (Albut/Ipratrop 3mg/0.5mg Neb 3 Ml Vial) 3 ml NEB Q6R PRN; Protocol PRN Reason: Shortness Of Breath Or Wheezing Stop: 03/29/24 18:33 Dextrose (Dextrose 50% 50 Ml Syringe) 25 - 50 ml IV UD PRN; Protocol PRN Reason: Hypoglycemia Protocol Stop: 03/29/24 18:33 Last Admin: 03/07/24 08:39 Dose: 25 ml Enoxaparin Sodium (Enoxaparin Inj 40 Mg/0.4 Ml Syr) 40 mg SQ DAILY [facility] Stop: 03/30/24 08:59 Last Admin: 03/11/24 07:50 Dose: 40 mg Ferrous Sulfate (Ferrous Sulfate 325 Mg Tab) 325 mg PO BIDM [facility] Stop: 03/31/24 07:59 Last Admin: 03/11/24 07:49 Dose: Not Given Glucagon (Glucagon For Inj 1 Mg Vial) 1 mg SQ UD PRN; Protocol PRN Reason: Hypoglycemia Protocol Stop: 03/29/24 18:33 Glucose (Glucose 40% Gel 15 Gm Tube) 15 - 30 gm PO UD PRN; Protocol PRN Reason: Hypoglycemia Protocol Stop: 03/29/24 18:33 Glucose (Glucose 10 Tab/Tube) 4 - 8 tab PO UD PRN; Protocol PRN Reason: Hypoglycemia Treatment Stop: 03/29/24 18:33 Haloperidol Lactate (Haloperidol Lactate 5 Mg/Ml 1 Ml Vial) 2.5 mg IV Q6H PRN PRN Reason: BPSD Stop: 03/29/24 16:57 Ampicillin Sodium/Sulbactam Sodium (Unasyn) 3,000 mg in 100 mls @ 200 mls/hr IV Q6H SONAM; Protocol Stop: 03/13/24 10:59 Insulin Aspart (Insulin Aspart Per Unit Charge) 0 units SC ACHS [facility] Stop: 03/29/24 18:33 Last Admin: 03/11/24 12:26 Dose: Not Given Insulin Glargine (Lantus Per Unit Charge) 5 units SQ BID [facility] Stop: 03/29/24 20:59 Last Admin: 03/06/24 09:12 Dose: 5 units Levothyroxine Sodium (Levothyroxine Sodium 50 Mcg Tablet) 50 mcg PO DAILYBB [facility] Stop: 03/30/24 06:29 Last Admin: 03/11/24 05:28 Dose: 50 mcg Magnesium Chloride (Magnesium Chloride W/Calcium 64mg Delayed Rel Tab) 64 mg PO BID [facility] Stop: 04/05/24 20:59 Last Admin: 03/11/24 07:48 Dose: Not Given Melatonin (Melatonin 3 Mg Tab) 6 mg PO HS [facility] Stop: 03/29/24 20:59 Last Admin: 03/10/24 21:04 Dose: 6 mg Memantine (Memantine Hcl 5 Mg Tab) 5 mg PO BID [facility] Stop: 03/29/24 20:59 Last Admin: 03/11/24 07:43 Dose: 5 mg Miscellaneous (Carbohydrates For Hypoglycemia ) 15 - 30 gm PO UD PRN PRN Reason: Hypoglycemia Protocol Stop: 03/29/24 18:33 Last Admin: 03/07/24 08:15 Dose: 15 gm Ondansetron HCl (Ondansetron Inj 2 Mg/Ml 2 Ml Vial) 4 mg IV Q6H PRN PRN Reason: Nausea And Vomiting Stop: 03/29/24 18:33 Quetiapine Fumarate (Quetiapine Fumarate 25 Mg Tablet) 25 mg PO [facility] Stop: 03/29/24 20:59 Last Admin: 03/10/24 21:03 Dose: 25 mg Rosuvastatin Calcium (Rosuvastatin Calcium 20 Mg Tab) 20 mg PO [facility] Stop: 03/29/24 20:59 Last Admin: 03/10/24 21:04 Dose: 20 mg (3) Pneumonia Laterality: bilateral Lung location: unspecified part of lung Pneumonia type: due to unspecified organism Qualified Code(s): J18.9 - Pneumonia, unspecified organism (7) Hypothyroidism Hypothyroidism type: acquired Qualified Code(s): E03.9 - Hypothyroidism, unspecified
[2024-03-11] MEDS: AMPICILLIN/SULBACTAM SOD 3,000 MG/100 ML BAG IV SCH (17:29)
[2024-03-12 07:01] VITALS: RESP 16; TEMP 97.7
[2024-03-12 07:28] LABS: Iron 24 mcg/dl (35-175); Total Iron Binding Cap Calc 142 mcg/dl (250-450); Transferrin (FE) Percent Satur 17 % (20-50); Unsaturated Iron Binding Cap 118 mcg/dl (155-355)
[2024-03-12] MEDS: PNEUMOCOCCAL VACCINE (PCV20) 20-VAL CONJ-DIP CRM/PF 0.5 ML SYR IM ONE (12:40)
--- NOTE | 2024-03-12 14:00 | Hospitalist Progress Note ---
Date of Service March 12, 2024 Assessment & Plan (1) Acute metabolic encephalopathy: Plan: In summary, 88-year-old male with history of dementia, diabetes mellitus type 2, recent COVID-19 and pneumonia, recent periprosthetic fracture right hip surgical treated at [place], among other medical problems who was sent from [facility] rehab for hypernatremia and AMS Acute metabolic encephalopathy Likely multifactorial (hypernatremia, dementia, recent COVID-19 infection, delirium) --CT Head:No acute infarct or intracranial hemorrhage. Acute sphenoid sinusitis. Continue delirium precautions Sodium levels improved Currently off restraints Fall precautions, PT OT as tolerated Poor oral intake, encourage as much as possible IV fluids prn Remains pleasantly confused Reorient frequently Appreciate palliative care consult Waiting for rehab placement, Accepted at [facility] for this Saturday if clinically stable Dysphagia with aspiration --Video Swallow:Several episodes of tracheal aspiration with thin liquids. No aspiration with nectar thick liquids or pudding consistency. Appreciate speech evaluation recommendations On nectar thick pured diet Aspiration precautions Empirically on IV Unasyn, Course completion today Leukocytosis resolved Electrolyte abnormalities Hypernatremia, hypokalemia, hypomagnesemia and hypophosphatemia Likely secondary to poor oral intake and dehydration Complicated by infection Monitor and replete electrolytes as needed Anemia-iron deficiency anemia Postop blood loss anemia-S/P ORIF right hip on 01/29/2024 [place] [facility] --Iron deficiency anemia contributing as well --S/P 1 unit PRBCs --Received IV iron -- Normal vitamin B12, folate levels -- Low iron levels. Continue iron supplement -- No obvious bleeding issues -- Follow HGB Recent COVID-19 infection --CXR:There are new patchy mild bibasilar airspace opacities suspicious for multifocal pneumonia. -- Normal procalcitonin --Completed Unasyn course -- On RA (2) Acute hypernatremia: Plan: Acute hypernatremia: sodium 152 on presentation Likely from poor oral intake given his dementia and confusion. Received IV fluids Sodium level 137 yesterday Monitor closely (3) Pneumonia: Plan: Multifocal Pneumonia/ acute sphenoid sinusitis: patient was diagnosed with COVID on 02/08 at [facility] and also received Ceftriaxone for 7 days for pneumonia. chest x-ray here shows multifocal pneumonia, unclear whether this is from his recent pneumonia versus a new one. He completed a course of Unasyn this admission. Speech consulted. (4) Elevated troponin: Plan: Secondary to demand ischemia (5) Diabetes mellitus type 2 with complications: Plan: Last HbA1c 6.3 Continue SSI Monitor BGs Observe for hypoglycemic episodes Continue hypoglycemia protocol (6) Dementia: Plan: Continue home medications (7) Hypothyroidism: Plan: Continue levothyroxine (8) Lab test positive for detection of COVID-19 virus: Plan: Management as above Plan :Other significant medical conditions are documented as below Severe malnutrition BMI of 16.6 DVT Px: Lovenox SQ CODE STATUS DNR/DNI Disposition Overall prognosis is poor Plan to discharge to [facility] 03/13 Admission and Anticipated Discharge Date Admission Date: February 28, 2024 Subjective Patient is seen and examined at bedside with nursing His remains a very poor historian Somnolent again this am but was awakened easily Accepted at [facility] for tomorrow He denies pain. No CP or SOB. Denies nausea Physical Exam Physical Exam: General- Elderly, cachectic male adult lying in bed Eyes- PERRL, EOMI, anicteric Neck- no JVD, Lungs-clear to auscultation Heart- regular rhythm; Abdomen- normal bowel sounds, soft, nontender, no masses or hepatosplenomegaly Extremities- no edema, Neuro- alert, oriented x1 ; PERRL, EOMI; Skin- warm & dry Results & Data Results & Data Vital Signs (Past 12 Hours) Vital Signs Temp Pulse Resp BP Pulse Ox O2 Del Method 03/12/24 07:01 36.5 C 80 16 123/75 97 Room Air Laboratory Results Laboratory Results WBC 5.75 K/ul (4.8-10.8) 03/11/24 05:43 RBC 2.89 M/uL (4.70-6.10) L 03/11/24 05:43 Hgb 8.7 g/dl (14.0-18.0) L 03/11/24 05:43 Hct 26.7 % (42.0-52.0) L 03/11/24 05:43 MCV 92.4 fL (80.0-100.0) 03/11/24 05:43 MCH 30.1 pg (25.0-34.0) 03/11/24 05:43 MCHC 32.6 g/dL (32.0-36.0) 03/11/24 05:43 RDW Std Deviation 51.8 fL (36.4-46.3) H 03/11/24 05:43 RDW Coeff of Baldo 15.4 % (11.5-14.5) H 03/11/24 05:43 Plt Count 427 K/uL (130-400) H 03/11/24 05:43 MPV 8.7 fL (9.4-12.4) L 03/11/24 05:43 Immature Gran % (Auto) 0.8 % 03/04/24 06:45 Neut % (Auto) 65.8 % 03/04/24 06:45 Lymph % (Auto) 21.3 % 03/04/24 06:45 Jerome % (Auto) 8.1 % 03/04/24 06:45 Eos % (Auto) 3.8 % 03/04/24 06:45 Baso % (Auto) 0.2 % 03/04/24 06:45 Neut # (Auto) 5.94 K/uL (1.40-6.50) 03/04/24 06:45 Lymph # (Auto) 1.92 K/uL (1.20-3.40) 03/04/24 06:45 Jerome # (Auto) 0.73 K/uL (0.11-0.59) H 03/04/24 06:45 Eos # (Auto) 0.34 K/uL (0.00-0.50) 03/04/24 06:45 Baso # (Auto) 0.02 K/uL (0.00-0.20) 03/04/24 06:45 Immature Gran # (Auto) 0.07 K/uL (0.01-0.20) 03/04/24 06:45 RBC Morphology Unremarkable 03/04/24 06:45 Polychromasia 1+ 03/03/24 06:38 PT 11.9 Seconds (9.0-12.0) 02/28/24 13:47 INR 1.1 (0.9-1.1) 02/28/24 13:47 APTT 27 Seconds (21-31) 02/28/24 13:47 PTT Ratio 1.0 02/28/24 13:47 Sodium 137 mmol/L (136-145) 03/11/24 05:43 Potassium 3.9 mmol/L (3.5-5.1) 03/11/24 05:43 Chloride 103 mmol/L (98-107) 03/11/24 05:43 Carbon Dioxide 30 mmol/L (21-32) 03/11/24 05:43 Anion Gap 4 (3-11) 03/11/24 05:43 BUN 7 mg/dl (6-23) 03/11/24 05:43 Creatinine 0.49 mg/dl (0.6-1.4) L 03/11/24 05:43 Est Cr Clr Drug Dosing 87.1 ml/min 03/11/24 05:43 Est GFR ( Amer) 114.7 ml/min 03/11/24 05:43 Est GFR (Non-Af Amer) 98.9 ml/min 03/11/24 05:43 BUN/Creatinine Ratio 14.3 (10-20) 03/11/24 05:43 Glucose 86 mg/dl (70-99(Fasting)) 03/11/24 05:43 POC Glucose 128 mg/dl (70-99) H 03/12/24 11:23 Lactate 1.2 mmol/L (0.4-2.0) 02/28/24 16:37 Calcium 7.8 mg/dl (8.6-10.3) L 03/11/24 05:43 Phosphorus 2.9 mg/dl (2.5-4.9) 03/07/24 06:07 Magnesium 1.7 mg/dl (1.7-2.4) 03/07/24 06:07 Iron 24 mcg/dl (35-175) L 03/12/24 06:38 TIBC 142 mcg/dl (250-450) L 03/12/24 06:38 Unsaturated IBC 118 mcg/dl (155-355) L 03/12/24 06:38 Transferrin % Sat 17 % (20-50) L 03/12/24 06:38 Ferritin 449.5 ng/ml (8-388) H 02/29/24 09:56 Total Bilirubin 0.5 mg/dl (0.2-1.0) 02/28/24 13:47 AST 20 U/L (13-39) 02/28/24 13:47 ALT 14 U/L (7-52) 02/28/24 13:47 Alkaline Phosphatase 120 U/L (34-104) H 02/28/24 13:47 Total Creatine Kinase 70 U/L (30-223) 02/28/24 13:47 Troponin I High Sens 37.4 pg/ml (0-20) H 02/29/24 07:32 Total Protein 6.6 gm/dl (6.0-8.3) 02/28/24 13:47 Albumin 3.0 gm/dl (3.4-5.0) L 02/28/24 13:47 Globulin 3.6 gm/dl (2.5-4.0) 02/28/24 13:47 Albumin/Globulin Ratio 0.8 (0.9-2) L 02/28/24 13:47 Lipase 12 U/L (11-82) 02/28/24 13:47 Vitamin B12 474 pg/ml (180-914) 02/29/24 09:56 Folate 5.67 ng/ml (>5.38) 02/29/24 09:56 Procalcitonin 0.06 ng/ml (0-0.5) 03/05/24 09:05 Nasal Screen MRSA (PCR) Negative (Negative) 02/29/24 03:00 SARS-CoV-2, RNA, NAAT POSITIVE (NEGATIVE) A 02/28/24 15:40 Blood Type A Positive 03/04/24 08:17 Blood Type Recheck A Positive 03/04/24 09:25 Antibody Screen NEGATIVE 03/04/24 08:17 Crossmatch See Detail 03/04/24 08:17 (3) Pneumonia Laterality: bilateral Lung location: unspecified part of lung Pneumonia type: due to unspecified organism Qualified Code(s): J18.9 - Pneumonia, unspecified organism (7) Hypothyroidism Hypothyroidism type: acquired Qualified Code(s): E03.9 - Hypothyroidism, unspecified
[2024-03-13 07:37] VITALS: PULSE 78; O2SAT 96
[2024-03-13] MEDS: DOCUSATE SODIUM/SENNA 50/8.6MG TAB PO SCH (10:19)
[2024-03-13] MEDS: POLYETHYLENE (MIRALAX) 17 GM PACK PO SCH (10:20)
[2024-03-13 10:24] VITALS: BP 110/65
== END 2024-03-13 11:15 | DRG 640 ==
LOC: ED 13:31 → SUATTDRO 15:11 → EDINP 15:11 → 2S 18:34 → 2N 03-05 10:30 → 3N 03-11 18:33